=== PATIENT | male | born 1975 | race Hispanic/Latino ===

== ENCOUNTER 2020-11-05 17:43 | Emergency (ER) | payer SELFPAY ==
--- OUTSIDE RECORDS SUMMARY | 2020-11-05 17:45 | XMS REPORT | Continuity of Care Document ---
:1975 Author Organization [facility] t Address [address] [place] [address] Care Team Providers Name Role Phone David Ernst Attending Clinician Problems This patient has no known problems. Allergies, Adverse Reactions, Alerts This patient has no known allergies or adverse reactions. Medications This patient has no known medications. Procedures This patient has no known procedures. Encounters Start End Encounter Admission Attending Care Care Encounter Source Date/Time Date/Time Type Type Clinicians Facility Department ID 2020-03-31 2020-03-31 Emergency David Babcock [facility] [id number] 12:53:00 16:56:00 Jayda Medrano [id number] [place] [id number] [place] [id number] Results This patient has no known results.
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
[2020-11-05] MEDS ORDERED: IBUPROFEN 400 MG TAB ONE (20:27)
[2020-11-05] MEDS ORDERED: ACETAMINOPHEN 500 MG TAB ONE (20:27)
[2020-11-05] MEDS ORDERED: NA CHLORIDE 0.9% 1,000 ML ONE (20:51)
[2020-11-05 21:01] LABS: Absolute Lymphocytes (CBC) 3.3 K/uL (0.7-4.9); Basophils % 1.1 % (0-1.3); Hematocrit 43.1 % (39.6-49.0); Lymphocytes % 38.9 % (15.3-44.8); MPV 9.1 fL (7.6-11.3); RBC Red Blood Cell Count 5.03 M/uL (4.33-5.43)
[2020-11-05 21:13] LABS: ALT/SGPT 18 U/L (12-78); AST/SGOT 8 U/L (15-37); Albumin 3.7 g/dL (3.4-5.0); BUN Blood Urea Nitrogen 11 mg/dL (7-18); Bicarbonate 25 mmol/L (21-32); Bilirubin Direct 0.1 mg/dL (0-0.2); Bilirubin Total 0.5 mg/dL (0.2-1.0); Glucose Level 251 mg/dL (74-106); Lipase 161 U/L (73-393); Potassium 3.2 mmol/L (3.5-5.1); Protein, Total 7.4 g/dL (6.4-8.2); Sodium Level 137 mmol/L (136-145)
[2020-11-05 21:14] LABS: Alkaline Phosphatase ND U/L (45-117)
[2020-11-05] MEDS ORDERED: POTASSIUM 25 MEQ EFFERV TAB ONE (21:44)
[2020-11-05 21:47] VITALS: TEMP 98.4
[2020-11-05 21:48] VITALS: BP 126/93; O2SAT 98
[2020-11-05 21:55] LABS: Urine Mucus 2+ /HPF (NONE SEEN)
[2020-11-05 21:55] LABS: Urine Blood NEGATIVE (NEG); Urine Glucose 2+ (NEG); Urine Protein NEGATIVE (NEG); Urine Specific Gravity >1.030 (1.005-1.030)
[2020-11-05 21:56] LABS: Urine Bacteria <20 /HPF (NONE SEEN); Urine RBC <5 /HPF (NONE SEEN)
== END 2020-11-05 21:40 | disposition home or self-care (01) ==
LOC: ER 17:43
DX: H66.92 Otitis media, unspecified, left ear (principal); E11.65 Type 2 diabetes mellitus with hyperglycemia; F17.210 Nicotine dependence, cigarettes, uncomplicated; I10 Essential (primary) hypertension; E78.00 Pure hypercholesterolemia, unspecified
CPT/HCPCS: 36415; 80048; 80076; 81003; 81015; 82010; 82947; 83690; 85025; 99284; J7030

== ENCOUNTER 2022-07-01 12:47 | Emergency (ER) | payer OTHER ==
--- OUTSIDE RECORDS SUMMARY | 2022-07-01 12:52 | XMS REPORT | Continuity of Care Document ---
:1975 Author Organization [facility] t Address [address] [place] [address] Care Team Providers Name Role Phone PCP, PATIENT DOES NOT HAVE A Primary Care Physician Unavaila TE Aldrich Attending Clinician Unavailable Te Allen MD Attending Clinician David Ernst Attending Clinician David MOREAU Attending Clinician Unavailable Payers Payer Name Policy Type Policy Number Effective Date Expiration Date S [facility] [place] D [id number] 2010 2010 Traditional 00:00:00 00:00:00 Problems This patient has no known problems. Allergies, Adverse Reactions, Alerts Allergy Allergy Status Severity Reaction(s) Onset Inactive Treating Comm ents Source Name Type Date Date Clinician NO KNOWN Drug Active Univers ALLERGIE Class ity of S [facility] Social History Social Habit Start Date Stop Date Quantity Comments Source Exposure to Not sure [facility] SARS-CoV-2 (event) Medica l Branch Sex Assigned At [birth year] [facility] 00:00:00 00:00:00 [facility] Smoking Status Start Date Stop Date Source Unknown if ever smoked [facility] Medications Ordered Filled Start Stop Current Ordering Indication Dosage Frequency Signature Comments Components Source Medication Medication Date Date Medication? Clinician (SIG) Name Name ibuprofen 2020-08 Yes [id number] 600mg Take 1 U nivers 600 mg 2-12 tablet by ity of tablet 00:00: mouth [place] 00 every 8 Medical (eight) Branch hours as needed for Pain (scale 4-6). clindamycin 2020-08 No [id number] 300mg Take 1 Univers 300 mg 10-03 capsule by ity of capsule 00:00: 05:59 mouth 4 [place] 00 :00 (four) Medical times Branch daily for 10 days. NaCl 0.9% 2020- No 1000mL at 999 Uni vers (NS) bolus 8-10 08-10 mL/hr, ity of infusion 22:00: 21:53 1,000 mL, Varun as 1,000 mL 00 :00 IV Medical Infusion, Branch ONCE, 1 dose, 03/31/20 at 1700, STAT NaCl 0.9% 2020-0 2020- No 1000mL at 999 Uni vers (NS) bolus 8-10 08-10 mL/hr, ity of infusion 19:15: 21:07 1,000 mL, Varun as 1,000 mL 00 :00 IV Medical Infusion, Branch ONCE, 1 dose, 03/31/20 at 1415, STAT Vital Signs Vital Name Observation Time Observation Value Comments Source Systolic blood 2021-08-02 18:20:00 133 mm[Hg] Univer sity of [place] Diastolic blood 2021-08-02 18:20:00 78 mm[Hg] Unive rsity [facility] Heart rate 2021-08-02 18:20:00 97 /min [facility] Body temperature 2021-08-02 18:20:00 37.22 [facility]ina [facility] Respiratory rate 2021-08-02 18:20:00 18 /min [facility] Oxygen saturation in 2021-08-02 18:20:00 95 /min [facility] Arterial blood by [facility] Pulse oximetry [place] Body height 2021-08-02 17:48:00 170.2 cm [facility] Body weight 2021-08-02 17:48:00 108.41 kg [facility] BMI 2021-08-02 17:48:00 37.43 kg/m2 [facility] Systolic blood 2020-03-31 20:15:00 130 mm[Hg] Univer sity of [place] Diastolic blood 2020-03-31 20:15:00 78 mm[Hg] Unive rsity [facility] Heart rate 2020-03-31 20:15:00 93 /min Universi ty [facility] Respiratory rate 2020-03-31 20:15:00 18 /min [facility] ersity [facility] Oxygen saturation in 2020-03-31 20:15:00 96 /min University of Arterial blood by [facility] Pulse oximetry Branch Body temperature 2020-03-31 17:52:00 36.5 [facility]ina [facility] Body weight 2020-03-31 17:52:00 108.863 kg Universi [facility] Systolic blood 2020-03-31 20:15:00 130 mm[Hg] Univer sity of pressure [facility] Diastolic blood 2020-03-31 20:15:00 78 mm[Hg] Unive rsity of [place] Heart rate 2020-03-31 20:15:00 93 /min Universi [facility] Respiratory rate 2020-03-31 20:15:00 18 /min [facility] Oxygen saturation in 2020-03-31 20:15:00 96 /min University of Arterial blood by [facility] Pulse oximetry Branch Body temperature 2020-03-31 17:52:00 36.5 Irina [facility] ersity [facility] Body weight 2020-03-31 17:52:00 108.863 [facility] Procedures Procedure Date / Time Performed Performing Clinician Sour e POCT GLUCOSE 2021-08-02 17:59:00 Te Allen [facility] (AUTOMATED) [facility] CONSENT/REFUSAL FOR 2021-08-02 17:35:20 Doctor Unassigned, No Un [facility] DIAGNOSIS AND Name Medical Branch TREATMENT NOTICE OF PRIVACY 2021-08-02 17:35:03 Doctor Unassigned, No Univ [facility] PRACTICES Name Medical Branch URINALYSIS 2020-03-31 20:32:00 David Moreau [facility] MAGNESIUM 2020-03-31 18:40:00 David Moreau [facility] COMP. METABOLIC PANEL 2020-03-31 18:40:00 David Moreau [facility] ([id number]) [facility] CBC WITH DIFF 2020-03-31 18:40:00 David Moreau [facility] EKG-12 LEAD 2020-03-31 18:03:18 David Moreau [facility] Encounters Start End Encounter Admission Attending Care Care Encounter Source Date/Time Date/Time Type Type Clinicians Facility Department ID 2021-11-14 Outpatient [facility] [id number] [place] 06:52:36 [facility] 2021-08-02 2021-08-02 Emergency X BRADLEY [facility] ERT [id number] Univers 12:00:00 12:50:00 TE [facility] 2021-08-02 2021-08-02 Emergency Bradley [facility] [id number] Univers 12:00:00 12:50:00 Te SCALESLAURA [id number] i ty of [place] [id number] [facility] [id number] [address] 2020-03-31 2020-03-31 Emergency Prieto, K [facility] [id number] [facility] 12:53:00 16:56:00 Jayda Medrano [id number] i ty of [place] [id number] [facility] [id number] [address] 2020-03-31 2020-03-31 Emergency David Moreau [facility] [id number] 12:53:00 16:56:00 Jayda Medrano [id number] [place] [id number] [place] [id number] [facility] 2020-03-31 2020-03-31 Emergency X PRIETO, K [facility] ERT [id number] [facility] 12:53:00 12:53:00 [facility] Results Test Description Test Time Test Comments Results Result Comments Source POCT GLUCOSE (AUTOMATED) 2021-08-02 18:03:13 Test Item Value Reference Range Interpretation Comme nts POCT GLU (test code = 6842875055) 231 mg/dL 70-110 H Lab Interpretation (test code = 95477-2) [facility]:26[facility]00 Test Item Value Reference Range Interpretation Comments APPEARANCE (test code = Hazy Clear A 4838546323) COLOR (test code = Yellow Yellow 4099044955) PH (test code = 4.8-8.0 8049962796) SP GRAVITY (test code = 1.003-1.030 2707025766) GLU U QUAL (test code = 500 mg/dL Normal A 0538263484) BLOOD (test code = Negative Negative 9376836682) KETONES (test code = Negative Negative 6254308941) PROTEIN (test code = 30 mg/dL Negative A 2887-8) UROBILIN (test code = 2.0 mg/dL Normal A 0927580502) BILIRUBIN (test code = Negative Negative 8026556368) NITRITE (test code = Negative Negative 7737936934) LEUK VITO (test code = Negative Negative 7279015830) RBC/HPF (test code = See_Comment [Autom ated message] 6976397018) The system [employer]Le[employer] generated this result transmit sammie reference range : 0 - 3 HPF. The refe rence range was not u sed to interpret th is result as normal/abnormal . WBC/HPF (test code = See_Comment [Autom ated message] 2681056280) The system [employer] generated this result transmit sammie reference range : 0 - 5 HPF. The refe rence range was not u sed to interpret th is result as normal/abnormal . BACTERIA (test code = Few Negative A 4960055054) MUCOUS (test code = Marked Negative LPF A 2912105389) SQ EPITH (test code = <1 HPF 2402343250) HYAL CAST (test code = See_Comment H [Aut omated message] 7680665359) The system [employer] generated this result transmit sammie reference range : <=2 LPF. The refere nce range was not u sed to interpret th is result as normal/abnormal . Lab Interpretation (test Abnormal code = 68914-1) [facility] (55642)2020-03-31 19:31:00 Test Item Value Reference Range Interpretation Comments NA (test code = 136 mmol/L 135-145 7740466181) K (test code = 3.9 mmol/L 3.5-5 9531870828) CL (test code = 100 mmol/L 98-108 0844444264) CO2 TOTAL (test code = 23 mmol/L 23-31 6817366927) AGAP (test code = 2-16 8407683476) BUN (test code = 16 mg/dL 7-23 2716340749) GLUCOSE (test code = 297 mg/dL 70-110 H 3655605421) CREATININE (test code = 0.69 mg/dL 0.6-1.25 1270365052) TOTAL BILI (test code = 0.9 mg/dL 0.1-1.1 4001555405) CALCIUM (test code = 9.3 mg/dL 8.6-10.6 7735225229) T PROTEIN (test code = 8.3 g/dL 6.3-8.2 H 5602130586) ALBUMIN (test code = 4.8 g/dL 3.5-5 2975384235) ALK PHOS (test code = 83 U/L 34-122 1715500254) ALTv (test code = 20 U/L 5-50 2-6) AST(SGOT) (test code = 37 U/L 13-40 1827840211) eGFR Calculation mL/min/1.73m2 (Non-) (test code = 6563855592) eGFR Calculation mL/min/1.73m2 () (test code = 5001183958) DOREEN (test code = DOREEN) Slight hemolysis Association of Glomerular Filtration Rate (GFR) and Staging of Kidney Disease* + --+ --+ ------+| GFR (mL/min/1.73 m2) ?| With Kidney Damage ?| ?Without Kidney Damage+ --------+ --------+ +| ?>90 ?| ?Stage one ?| ? Normal ?+ ---+ ---+ -------+| ?60-89 ?| ?Stage two ?| ? Decreased GFR ? + --+ --+ ------+| ?30-59 ?| ?Stage three ?| ? Stage three ? + --+ --+ ------+| ?15-29 ?| ?Stage four ? | ? Stage four ?+ ---+ ---+ -------+| ?<15 (or dialysis) ? ?| ?Stage five ? | ? Stage five ?+ ---+ ---+ -------+ *Each stage assumes the associated GFR level has been in effect for at least three months. ?Stages 1 to 5, with or without kidney disease, indicate chronic kidney disease. Notes: Determination of stages one and two (with eGFR >59mL/min/1.73 m2) requires estimation of kidney damage for at least three months as defined by structural or functional abnormalities of the kidney, manifested by either:Pathological abnormalities or Markers of kidney damage (including abnormalities in the composition of the blood or urine or abnormalities in imaging tests). Lab Interpretation Abnormal (test code = 76874-2) [facility]25:00 Test Item Value Reference Range Interpretation Comments MAGNESIUM (test code = 7881967599) 1.9 mg/dL 1.7-2.4 Lab Interpretation (test code = Normal 90860-8) [facility] WITH [id number] 19:02:00 Test Item Value Reference Range Interpretation Comments WBC (test code = See_Comment [Automated message] 2290-2) The system [employer] generated this result transmitted ref erence range: 4.20 - 1 0.70 10*3/?L. The re ference range was not u sed to interpret this result as normal/abnor mal. RBC (test code = See_Comment [Automated message] 159-8) The system [employer] generated this result transmitted ref erence range: 4.26 - 5 .52 10*6/?L. The re ference range was not u sed to interpret this result as normal/abnor mal. HGB (test code = 15.3 g/dL 12.2-16.4 718-7) HCT (test code = 44.9 % 38.4-49.3 4544-3) MCV (test code = 86.5 fL 81.7-95.6 787-2) MCH (test code = 29.5 pg 26.1-32.7 785-6) MCHC (test code = 34.1 g/dL 31.2-35 786-4) RDW-SD (test code 39.1 fL 38.5-51.6 = 68639-5) RDW-CV (test code 12.4 % 12.1-15.4 = 788-0) PLT (test code = See_Comment [Automated message] 707-3) The system [employer] generated this result transmitted ref erence range: 150 - 32 8 10*3/?L. The re ference range was not u sed to interpret this result as normal/abnor mal. MPV (test code = 10.7 fL 9.8-13 59901-3) NRBC/100 WBC (test See_Comment [Automat ed message] code = 5385391087) The syste m which generated this result transmitted ref erence range: 0.0 - 10 .0 /100 WBCs. The refer ence range was not u sed to interpret this result as normal/abnor mal. NRBC x10^3 (test <0.01 See_Comment [Automated message] code = 7091836691) The syste m which generated this result transmitted ref erence range: 10*3/?L. The reference range was not used to interpr et this result as normal/abnormal . GRAN MAT (NEUT) % 60.8 % (test code = 770-8) IMM GRAN % (test 0.40 % code = 2415299993) LYMPH % (test code 29.6 % = 736-9) MONO % (test code 6.5 % = 5905-5) EOS % (test code = 2.3 % 713-8) BASO % (test code 0.4 % = 706-2) GRAN MAT 4.95 10*3/uL 1.99-6.95 x10^3(ANC) (test code = 4622735890) IMM GRAN x10^3 0.03 10*3/uL 0-0.06 (test code = 8065191652) LYMPH x10^3 (test 2.41 10*3/uL 1.09-3.23 code = 731-0) MONO x10^3 (test 0.53 10*3/uL 0.36-1.02 code = 742-7) EOS x10^3 (test 0.19 10*3/uL 0.06-0.53 code = 711-2) BASO x10^3 (test 0.03 10*3/uL 0.01-0.09 code = 704-7) [facility]"
[2022-07-01] MEDS ORDERED: NA CHLORIDE 0.9% 1,000 ML ONE (13:13)
[2022-07-01 13:26] LABS: Absolute Lymphocytes (CBC) 1.7 K/uL (0.7-4.9); Hematocrit 46.4 % (39.6-49.0); MCV 87.9 fL (80-100); MPV 8.7 fL (7.6-11.3); RBC Red Blood Cell Count 5.28 M/uL (4.33-5.43)
[2022-07-01 13:33] LABS: Protime INR 1.04
[2022-07-01 13:59] LABS: SARS-COV-2 RT PCR NEGATIVE (NEGATIVE)
--- NOTE | 2022-07-01 14:19 | RAD REPORT ---
EXAM DESCRIPTION: CT - Chest For Pe Angio - 07/01/2022 2:08 pm CLINICAL HISTORY: chest pain with breathing COMPARISON: No comparisons TECHNIQUE: Dynamically enhanced axial 3 mm thick images of the chest were obtained during administra tion of <100> mL Isovue 370 IV contrast. Coronal and oblique reconstruction images were generated and reviewed. Exam utilizes a protocol for optimal evaluation of pulmonary arterial tree. Maximum intensity projections 3D imaging was utilized All CT scans are performed using dose optimization technique as appropriate and may include automated exposure control or mA/KV adjustment according to patient size. FINDINGS: Chest Wall: No suspicious thyroid nodules or pathologic lymphadenopathy. Lungs: Small foci of nodular airspace disease in the right lower lobe. 16 mm solid nodule in the ling jeannine. Pleura: No significant effusions or pneumothorax. Mediastinum/ysabel: No pathologic lymphadenopathy. Pulmonary arteries/Aorta: No filling defect identified. No aortic aneurysm. Heart: No significant pericardial effusion. Normal heart size. Upper abdomen: Hepatic steatosis. Bones: No acute abnormality. IMPRESSION: Negative for pulmonary embolism. Mild nodularity in the right lower lobe likely reflecti ng mild pneumonia or pneumonitis. 16 mm solid nodule in the lingula favored to be related to infection or inflammation. Given the size, recommend three-month follow-up chest CT to exclude neoplasm and ensure resolution.
--- NOTE | 2022-07-01 14:21 | RAD REPORT ---
EXAM DESCRIPTION: CTAbdomen Pelvis W Contrast - 07/01/2022 2:08 pm CLINICAL HISTORY: abd pain COMPARISON: No comparisons TECHNIQUE: CT of the abdomen and pelvis was performed with IV contrast. All CT scans are performed using dose optimization technique as appropriate and may include automated exposure control or mA/KV adjustment according to patient size. FINDINGS: Lower chest: Reference same-day chest CT Liver: No acute abnormality or suspicious lesions. Biliary: No biliary ductal dilatation. Stomach: No significant focal abnormality. Duodenum: No significant focal abnormality. Pancreas: No significant abnormality. Spleen: No significant abnormality. Adrenal: No suspicious lesions. Kidney/ureter: No hydronephrosis. No renal calculi. Too small to characterize and/or benign appearing renal lesions are noted. Retroperitoneum: No retroperitoneal adenopathy. Vascular: No aneurysm. Bowel: No significant focal abnormality. Normal appendix. Peritoneum: No ascites or free air. Small fat containing inguinal hernias, left greater than right. Bladder: Grossly unremarkable. Reproductive: No adnexal masses. Bones: No acute fracture. Other: n/a IMPRESSION: No acute intra-abdominal or pelvic finding. Normal appendix.
--- NOTE | 2022-07-01 14:35 | RAD REPORT ---
EXAM DESCRIPTION: RAD - Chest Single View - 07/01/2022 2:30 pm CLINICAL HISTORY: CHEST PAIN COMPARISON: No comparisons FINDINGS: Lines: None. Lungs: No evidence of edema or pneumonia. Pleural: No significant pleural effusions or pneumothorax. Cardiac: The heart size is within normal limits. Mediastinum: Within normal limits. Bones: No acute fractures. Other: None IMPRESSION: No acute cardiopulmonary disease.
--- NOTE | 2022-07-01 14:47 | ER ---
Nurse's Notes [facility] Name: Jaden Luna Age: 46 yrs Sex: Male : 1975 Arrival Date: 07/01/2022 Time: 12:52 Bed 3 Private MD: Diagnosis: Pneumonia, unspecified organism;Chest pain on breathing Presentation: 07/01 13:00 Chief complaint: Patient states: Pt reports epigastric and upper abdominal pain and jh5 acid reflux radiating into his middle back with associated N/V, subjective fever and SOB x1 week. Coronavirus screen: Vaccine status: Patient reports receiving the 2nd dose of the covid vaccine. Client denies travel out of the [place] in the last 14 days. Ebola Screen: Patient negative for fever greater than or equal to 101.5 degrees Fahrenheit, and additional compatible Ebola Virus Disease symptoms Patient denies exposure to infectious person. Patient denies travel to an Ebola-affected area in the 21 days before illness onset. Initial Sepsis Screen: Does the patient meet any 2 criteria? HR > 90 bpm. No. Patient's initial sepsis screen is negative. Does the patient have a suspected source of infection? No. Patient's initial sepsis screen is negative. Risk Assessment: Do you want to hurt yourself or someone else? Patient reports no desire to harm self or others. Onset of symptoms was June 24, 2022. 13:00 Method Of Arrival: Ambulatory [facility] 13:00 Acuity: JAMES 3 jh5 Triage Assessment: 13:02 General: Appears in no apparent distress. uncomfortable, Behavior is calm, cooperative. 5 Pain: Complains of pain in epigastric area, right upper quadrant and left upper quadrant Pain radiates to left mid back and right mid back Pain currently is 8 out of 10 on a pain scale. Quality of pain is described as sharp, Pain began 1 week ago Is continuous. Historical: - Allergies: 13:02 No Known Allergies; [facility] - Home Meds: 13: metformin 1,000 mg Oral tab 1 tab 2 times per day [Active]; 5 - PMHx: 13:02 Diabetes - NIDDM; High Cholesterol; Hypertension; [facility] - PSHx: 13:02 None; [facility] - Immunization history:: Adult Immunizations up to date, Client reports receiving the 2nd dose of the Covid vaccine, Last tetanus immunization: up to date. - Social history:: Smoking status: Reported history of juuling and/or vaping. - Family history:: not pertinent. - Hospitalizations: : No recent hospitalization is reported. Screenin:07 Abuse screen: Denies threats or abuse. Denies injuries from another. Nutritional db screening: No deficits noted. Tuberculosis screening: No symptoms or risk factors identified. Fall Risk None identified. No fall in past 12 months (0 pts). No secondary diagnosis (0 pts). IV access (20 points). Ambulatory Aid- None/Bed Rest/Nurse Assist (0 pts). Gait- Normal/Bed Rest/Wheelchair (0 pts) Mental Status- Oriented to own ability (0 pts). Total Wu Fall Scale indicates No Risk (0-24 pts). Assessment: 13:04 Reassessment: Patient appears in no apparent distress at this time. Patient and/or db family updated on plan of care and expected duration. Pain level reassessed. Patient is alert, oriented x 3, equal unlabored respirations, skin warm/dry/pink. under rib and middle epigastric pain started x 1 week ago. General: Appears Behavior is calm, cooperative, appropriate for age. Pain: Complains of pain in chest Pain began 1 week ago. Pain: Pain radiates to back. Neuro: No deficits noted. Level of Consciousness is awake, alert, obeys commands, Oriented to person, place, time, situation, Appropriate for age Speech is normal, Facial symmetry appears normal. Cardiovascular: Reports chest pain, shortness of breath. Respiratory: No deficits noted. GI: Reports upper abdominal pain. : No deficits noted. No signs and/or symptoms were reported regarding the genitourinary system. EENT: No deficits noted. No signs and/or symptoms were reported regarding the EENT system. Derm: No deficits noted. No signs and/or symptoms reported regarding the dermatologic system. Musculoskeletal: No deficits noted. No signs and/or symptoms reported regarding the musculoskeletal system. 14:00 Reassessment: Patient appears in no apparent distress at this time. Patient and/or kb3 family updated on plan of care and expected duration. Pain level reassessed. Patient is alert, oriented x 3, equal unlabored respirations, skin warm/dry/pink. 15:16 Reassessment: Patient appears in no apparent distress at this time. Patient and/or kb3 family updated on plan of care and expected duration. Pain level reassessed. Patient is alert, oriented x 3, equal unlabored respirations, skin warm/dry/pink. Vital Signs: 12:53 BP 139 / 94; Pulse 101; Resp 22; Pulse Ox 93% on R/A; db 13:00 BP 139 / 94; Pulse 106; Resp 20; Pulse Ox 94% ; Weight 117.03 kg; Height 5 ft. 7 in. [facility] (170.18 cm); Pain 8/10; 13:30 BP 139 / 90; Pulse 93; Resp 18; Pulse Ox 95% ; kb3 14:43 BP 129 / 82; Pulse 85; Resp 18; Pulse Ox 97% ; kb3 13:00 Body Mass Index 40.41 (117.03 kg, 170.18 cm) [facility] Vitals: 12:53 Cardiac Rhythm Assessment Regular Sinus rhythm. db ED Course: 12:52 Patient arrived in ED. rg4 13:00 Bethel Leslie MD is Attending Physician. rn 13:02 Triage completed. [facility] 13:02 Arm band placed on right wrist. Patient placed in an exam room, on a stretcher. [facility] 13:04 Latisha Rodriguez, RN is Primary Nurse. db 13:07 Patient has correct armband on for positive identification. Bed in low position. Call db light in reach. Side rails up X 1. Client placed on continuous cardiac and pulse oximetry monitoring. NIBP monitoring applied. Warm blanket given. 13:07 Patient maintains SpO2 saturation greater than 95% on room air. db 14:09 CT Chest For PE Angio In Process Unspecified. EDMS 14:09 CT Abd/Pelvis - IV Contrast Only In Process Unspecified. EDMS 14:32 XRAY Chest (1 view) In Process Unspecified. EDMS 15:12 No provider procedures requiring assistance completed. IV discontinued, intact, bp bleeding controlled, No redness/swelling at site. Pressure dressing applied. Administered Medications: 13:20 Drug: NS 0.9% 1000 ml Route: IV; Rate: 1000 ml; Site: right antecubital; db 15:11 Follow up: Response: No adverse reaction; IV Status: Completed infusion; IV Intake: kb3 1000ml 15:11 Drug: LevOfloxacin 500 mg Route: PO; bp 15:12 Follow up: Response: No adverse reaction kb3 15:12 Follow up: Response: No adverse reaction bp Medication: 13:07 VIS not applicable for this client. db Intake: 15:11 IV: 1000ml; Total: 1000ml. kb3 Outcome: 14:47 Discharge ordered by . rn 15:13 Discharged to home ambulatory. kb3 15:13 Condition: stable 15:13 Discharge instructions given to patient, Instructed on discharge instructions, Demonstrated understanding of follow-up care, Prescriptions given X 1. 15:17 Patient left the ED. kb3 Signatures: Dispatcher [employer] EDMS Bethel Leslie MD MD rn Garcia, Rubi rg4 Bakari Garcia RN RN Sarina Lane RN RN jh5 Robina Driver RN RN kb3 Latisha Rodriguez RN RN db
--- NOTE | 2022-07-01 14:48 | EDPHYS ---
Physician Documentation [facility] Name: Jaden Luna Age: 46 yrs Sex: Male : 1975 Arrival Date: 07/01/2022 Time: 12:52 Bed 3 Private MD: ED Physician Bethel Leslie HPI: 07/01 14:42 This 46 yrs old Male presents to ER via Ambulatory with complaints of Chest rn Pain, Breathing Difficulty. 14:42 The patient or guardian reports chest pain that is located primarily in the anterior rn chest wall, bilaterally. Onset: 1 week(s) ago. The pain does not radiate. Associated signs and symptoms: Pertinent positives: abdominal pain, cough, shortness of breath, Pertinent negatives: diaphoresis, syncope. The chest pain is described as sharp. Duration: The patient or guardian reports multiple episodes, that are intermittent. Modifying factors: The symptoms are alleviated by nothing. the symptoms are aggravated by cough, deep breath. Severity of pain: At its worst the pain was mild in the emergency department the pain is unchanged. The patient has experienced similar episodes in the past. The patient has not recently seen a physician. Historical: - Allergies: 13:02 No Known Allergies; [facility] - Home Meds: 13:02 metformin 1,000 mg Oral tab 1 tab 2 times per day [Active]; [facility] PMHx: 13:02 Diabetes - NIDDM; High Cholesterol; Hypertension; [facility] - PSHx: 13:02 None; [facility] - Immunization history:: Adult Immunizations up to date, Client reports receiving the 2nd dose of the Covid vaccine, Last tetanus immunization: up to date. - Social history:: Smoking status: Reported history of juuling and/or vaping. - Family history:: not pertinent. - Hospitalizations: : No recent hospitalization is reported. ROS: 14:42 Constitutional: Negative for fever, chills, and weight loss, Eyes: Negative for injury, rn pain, redness, and discharge, Neck: Negative for injury, pain, and swelling, Cardiovascular: Negative for palpitations, and edema, Respiratory: Negative for wheezing Abdomen/GI: Negative for nausea, vomiting, diarrhea, and constipation Back: Negative for injury and pain, : Negative for injury, bleeding, discharge, and swelling, MS/Extremity: Negative for injury and deformity, Skin: Negative for injury, rash, and discoloration, Neuro: Negative for numbness, tingling, and seizure Exam: 14:42 Constitutional: This is a well developed, well nourished patient who is awake, alert, rn and in no acute distress. Head/Face: Normocephalic, atraumatic. Chest/axilla: Normal chest wall appearance and motion. Nontender with no deformity. No lesions are appreciated. Cardiovascular: Regular rate and rhythm. No pulse deficits. Respiratory: No increased work of breathing, no retractions or nasal flaring. Abdomen/GI: soft, mild epigastric tenderness, no rebound Skin: Warm, dry MS/ Extremity: Pulses equal, no cyanosis. Neuro: Awake and alert, GCS 15 14:42 ECG was reviewed by the Attending Physician. rn Vital Signs: 12:53 BP 139 / 94; Pulse 101; Resp 22; Pulse Ox 93% on R/A; db 13:00 BP 139 / 94; Pulse 106; Resp 20; Pulse Ox 94% ; Weight 117.03 kg; Height 5 ft. 7 in. jh5 (170.18 cm); Pain 8/10; 13:30 BP 139 / 90; Pulse 93; Resp 18; Pulse Ox 95% ; kb3 14:43 BP 129 / 82; Pulse 85; Resp 18; Pulse Ox 97% ; kb3 13:00 Body Mass Index 40.41 (117.03 kg, 170.18 cm) jh5 MDM: 13:00 Patient medically screened. rn 14:42 Differential diagnosis: acute myocardial infarction, acute pericarditis, coronary rn artery disease chest wall pain, costochondritis, gastroesophageal reflux disease (GERD), pleurisy, pneumonia, pneumothorax, pulmonary embolus. Data reviewed: vital signs, nurses notes, lab test result(s), EKG, radiologic studies, CT scan, plain films, and as a result, I will discharge patient. Counseling: I had a detailed discussion with the patient and/or guardian regarding: the historical points, exam findings, and any diagnostic results supporting the discharge/admit diagnosis, lab results, radiology results, the need for outpatient follow up, to return to the emergency department if symptoms worsen or persist or if there are any questions or concerns that arise at home. Special discussion: I discussed with the patient/guardian in detail that at this point there is no indication for admission to the hospital. It is understood, however, that if the symptoms persist or worsen the patient needs to return immediately for re-evaluation. 07/01 13:07 Order name: Basic Metabolic Panel; Complete Time: 15:05 rn 07/01 13:07 Order name: CBC with Diff; Complete Time: 14:41 rn 07/01 13:07 Order name: LFT's; Complete Time: 15:05 rn 07/01 13:07 Order name: NT PRO-BNP; Complete Time: 15: rn 07/01 13:07 Order name: PT-INR; Complete Time: 14:41 rn 07/01 13:07 Order name: Troponin HS; Complete Time: 15:05 rn 07/01 13:07 Order name: XRAY Chest (1 view); Complete Time: 14:41 rn 07/01 13:07 Order name: EKG; Complete Time: 13: rn 07/01 13:07 Order name: CT Chest For PE Angio; Complete Time: 14:41 rn 07/01 13:07 Order name: CT Abd/Pelvis - IV Contrast Only; Complete Time: 14: rn 07/01 13:09 Order name: Lipase; Complete Time: 15: rn 07/01 13:09 Order name: COVID-19/FLU A+B/RSV (Document "Date of Onset" if Symptomatic); Complete rn Time: 14:07/01 13:07 Order name: Cardiac monitoring; Complete Time: 13: rn 07/01 13:07 Order name: EKG - Nurse/Tech; Complete Time: 13:15 rn 07/01 13:07 Order name: IV Saline Lock; Complete Time: 13: rn 07/01 13:07 Order name: Labs collected and sent; Complete Time: 13:15 rn 07/01 13:07 Order name: O2 Per Protocol; Complete Time: 13: rn 07/01 13:07 Order name: O2 Sat Monitoring; Complete Time: 13:11 rn EC:42 Rate is 98 beats/min. Rhythm is regular. QRS [place] is Normal. MI interval is normal. QRS rn interval is normal. QT interval is normal. No Q waves. T waves are Normal. No ST changes noted. Clinical impression: Normal ECG. Interpreted by me. Reviewed by me. Administered Medications: 13:20 Drug: NS 0.9% 1000 ml Route: IV; Rate: 1000 ml; Site: right antecubital; db 15:11 Follow up: Response: No adverse reaction; IV Status: Completed infusion; IV Intake: kb3 1000ml 15:11 Drug: LevOfloxacin 500 mg Route: PO; bp 15:12 Follow up: Response: No adverse reaction kb3 15:12 Follow up: Response: No adverse reaction bp Disposition Summary: 07/01/22 14:47 Discharge Ordered Location: Home rn Problem: new rn Symptoms: have improved rn Condition: Stable rn Diagnosis - Pneumonia, unspecified organism rn - Chest pain on breathing rn Followup: rn - With: Private Physician - When: As needed - Reason: Recheck today's complaints, Re-evaluation by your physician Discharge Instructions: - Discharge Summary Sheet rn - Nonspecific Chest Pain, Adult rn - Chest Wall Pain rn - Community-Acquired Pneumonia, Adult rn Forms: - Medication Reconciliation Form rn - Thank You Letter rn - 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
[2022-07-01 15:02] LABS: ALT/SGPT 26 U/L (12-78); AST/SGOT 8 U/L (15-37); Alkaline Phosphatase 134 U/L (45-117); BUN Blood Urea Nitrogen 11 mg/dL (7-18); Bicarbonate 24 mmol/L (21-32); Bilirubin Total 0.2 mg/dL (0.2-1.0); Glomerular Filtration Rate 108 ml/min (=/>90); Lipase 176 U/L (73-393); NT PRO-BNP 7 pg/mL (<125); Protein, Total 6.7 g/dL (6.4-8.2); Sodium Level 134 mmol/L (136-145); Troponin High Sensitivity 5.3 pg/mL (<58.9)
[2022-07-01 15:03] LABS: Bilirubin Direct < 0.1 mg/dL (0-0.2)
[2022-07-01 15:04] LABS: Glucose Level 403 mg/dL (74-106)
[2022-07-01] MEDS ORDERED: levoFLOXacin 250 MG TAB ONE (15:05)
[2022-07-01 15:37] VITALS: BP 129/82; O2SAT 97
--- NOTE | 2022-07-02 15:59 | EKG ---
Test Date: 2022-07-01 Test Time: 13:10:00 Tier And Detonator: JACE MEASUREMENT RESULTS: Intervals: Rate: 98 TX: 146 QRSD: 112 QT: 354 QTc: 451 [place]: P: 58 TX: 146 QRS: 27 T: 62 INTERPRETIVE STATEMENTS: Normal sinus rhythm Normal ECG No previous ECG available for comparison Electronically Signed On 07-02-22 15:57:52 GRAINING OPERATOR by Abdirizak Gamez
== END 2022-07-01 15:17 | disposition home or self-care (01) ==
LOC: ER 12:47
DX: J18.9 Pneumonia, unspecified organism (principal); E11.9 Type 2 diabetes mellitus without complications; I10 Essential (primary) hypertension; Z20.822 Contact with and (suspected) exposure to COVID-19
CPT/HCPCS: 96361; 93005; 85025; 80048; 36415; 85610; 82565; 80076; 84484; 83690; 83880; 0241U; 71275; 74177; 71045; 96360; 99284; Q9967; J7030

== ENCOUNTER → 2023-10-17 | Emergency (ER) | payer OTHER, SELFPAY ==
[~2023-10-17] MED LIST: ASPIRIN 81 MG CHEWABLE TABLET ONE
--- OUTSIDE RECORDS SUMMARY | 2023-10-17 20:38 | XMS REPORT | Continuity of Care Document ---
Author Name Unknown Address [address] [facility] [address] [place] [address] [facility] Address [address] [facility] 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 Role Phone Ellerslie Anderson BOLDEN Primary Care Physician [phone] ZULMA BEJARANO Attending Clinician Unavailable Parish Deleon Attending Clinician [phone] Oneyda Fletcher Attending Clinician [phone] FRANCHESKA ALLEN Attending Clinician Unavailable Francheska Allen MD Attending Clinician [phone] David Ernst Attending Clinician [phone] David MOREAU Attending Clinician Unavailable Payers Payer Name Policy Type Policy Number Effective Date Expirati on Date Source GENERIC MANAGED CARE [id number] 2022 00:00:00 Problems Condition Name Condition Details Condition Category Status Onset Date Resolution Date Last Treatment Date Treating Clinician Comments Source Closed displaced transverse fracture of shaft of right femur Closed displaced transverse fracture of shaft of right femur Disease Active 10-04 00:00: 00 [facility] Closed displaced intertroch anteric fracture of right femur Closed displaced intertroch anteric fracture of right femur Disease Active - 00:00: 00 [facility] Allergies, Adverse Reactions, Alerts Allergy Name Allergy Type Status Severity Reaction(s) Onset Date Inactive Date Treating Clinician Comments Source NO KNOWN ALLERGIE S Drug Class Active [facility] Social History Social Habit Start Date Stop Date Quantity Comments Source Sexual orientation [facility] Exposure to SARS-CoV-2 (event) 2023-01-08 00:00:00 2023-01-18 10:46:00 Not sure [facility] Sex Assigned At 1975 00:00:00 1975 00:00:00 [facility] Smoking Status Start Date Stop Date Source Tobacco smoking consumption unknown [facility] Medications Ordered Medication Name Filled Medication Name Start Date Stop Date Current Medication? Ordering Clinician Indication Dosage Frequency Signature (SIG) Comments Components Source ergocalcife rol (Drisdol) 1.25 MG (44790 UT) capsule 2022-08 00:00: 00 08-28 05:59 :00 No [id number] Take 1 capsule (50,000 Units total) by mouth 1 (one) time per week. [facility] ergocalcife rol (Drisdol) 1.25 MG (89072 UT) capsule 03-22 00:00: 00 05-22 04:59 :00 No [id number] Take 1 capsule (50,000 Units total) by mouth 1 (one) time per week. [facility] TAKE 1 TABLET BY MOUTH EVERY 8 HOURS NEEDED FOR PAIN (SCALE 4-6) 2021-08 00:00: 00 No ibuprofen 600 mg tablet 2020-08 00:00: 00 Yes [id number] 600mg Take 1 tablet by mouth every 8 (eight) hours as needed for Pain (scale 4-6). [facility] clindamycin 300 mg capsule 2020-08 00:00: 00 08-13 05:59 :00 No [id number] 300mg Take 1 capsule by mouth 4 (four) times daily for 10 days. [facility] NaCl 0.9% (NS) bolus infusion 1,000 mL 03-31 22:00: 00 03-31 21:53 :00 No 1000mL at 999 mL/hr, 1,000 mL, IV Infusion, ONCE, 1 dose, Tue03/31/20 at 1700, STAT [facility] NaCl 0.9% (NS) bolus infusion 1,000 mL 03-31 19:15: 00 03-31 21:07 :00 No 1000mL at 999 mL/hr, 1,000 mL, IV Infusion, ONCE, 1 dose, 03/31/20 at 1415, STAT [facility] Immunizations Ordered Immunization Name Filled Immunization Name Date Status Comments Source COVID-19 Moderna 12 & Over Vaccination (SQUEEGEER AND FORMER) 2021-08-21 00:00:00 Completed [facility] COVID-19 Moderna Primary 12+yr (red) 2021-08-21 00:00:00 Completed [facility] COVID-19 Moderna Primary 12+yr (red) 2021-08-21 00:00:00 Completed [facility] COVID-19 Moderna Primary 12+yr (red) Unknown Completed [facility] Vital Signs Vital Name Observation Time Observation Value Comments S ource Systolic blood pressure 2021-08-02 18:20:00 133 mm[Hg] [facility] Diastolic blood pressure 2021-08-02 18:20:00 78 mm[Hg] [facility] Heart rate 2021-08-02 18:20:00 97 /min [facility] Body temperature 2021-08-02 18:20:00 37.22 [facility] Respiratory rate 2021-08-02 18:20:00 18 /min [facility] Oxygen saturation in Arterial blood by Pulse oximetry 2021-08-02 18:20:00 95 /min [facility] Body height 2021-08-02 17:48:00 170.2 cm [facility] Body weight 2021-08-02 17:48:00 108.41 kg [facility] BMI 2021-08-02 17:48:00 37.43 kg/m2 [facility] Systolic blood pressure 2020-03-31 20:15:00 130 mm[Hg] [facility] Diastolic blood pressure 2020-03-31 20:15:00 78 mm[Hg] [facility] Heart rate 2020-03-31 20:15:00 93 /min [facility] Respiratory rate 2020-03-31 20:15:00 18 /min [facility] Oxygen saturation in Arterial blood by Pulse oximetry 2020-03-31 20:15:00 96 /min [facility] Body temperature 2020-03-31 17:52:00 36.5 [facility] Body weight 2020-03-31 17:52:00 108.863 kg [facility] Systolic blood pressure 2020-03-31 20:15:00 130 mm[Hg] [facility] Diastolic blood pressure 2020-03-31 20:15:00 78 mm[Hg] [facility] Heart rate 2020-03-31 20:15:00 93 /min [facility] Respiratory rate 2020-03-31 20:15:00 18 /min [facility] Oxygen saturation in Arterial blood by Pulse oximetry 2020-03-31 20:15:00 96 /min [facility] Body temperature 2020-03-31 17:52:00 36.5 [facility] Body weight 2020-03-31 17:52:00 108.863 kg [facility] Respiratory Rate 2022-07-07 17:31:00 17.00 /min BP Systolic 2022-07-07 17:31:00 120 mm[Hg] BP Diastolic 2022-07-07 17:31:00 78 mm[Hg] Weight Measured 2022-07-07 17:31:00 253.20 pounds Height Measured 2022-07-07 17:31:00 65.00 inches Body Temperature 2022-07-07 17:31:00 98.10 degrees Heart Rate 2022-07-07 17:31:00 113.00 /min Procedures Procedure Date / Time Performed Performing Clinicia n Source POCT GLUCOSE (AUTOMATED) 2021-08-02 17:59:00 Francheska Allen [facility] CONSENT/REFUSAL FOR DIAGNOSIS AND TREATMENT 2021-08-02 17:35:20 Doctor Unassigned, [place] [facility] NOTICE OF PRIVACY PRACTICES 2021-08-02 17:35:03 Doctor Unassigned, [place] [facility] URINALYSIS 2020-03-31 20:32:00 David Moreau [facility] MAGNESIUM 2020-03-31 18:40:00 David Moreau [facility] COMP. METABOLIC PANEL ([id number]) 2020-03-31 18:40:00 David Moreau [facility] CBC WITH DIFF 2020-03-31 18:40:00 [facility] 2020-03-31 18:03:18 David Moreau [facility] Plan of Care Planned Activity Planned Date Details Comments Source Goal Plan of Care Note [code = 24547-2] Goal Plan of Care Note [code = 41352-2] Goal Plan of Care Note [code = 75582-8] Goal Plan of Care Note [code = 33122-5] Goal Plan of Care Note [code = 37765-2] Goal Plan of Care Note [code = 45242-3] Goal Plan of Care Note [code = 75528-9] Encounters Start Date/Time End Date/Time Encounter Type Admission Type Attending Clinicians [facility] Facility Care Department Encounter ID Source 2023-02-17 07:28:39 Outpatient [facility] [id number] [facility] 2023-01-13 08:06:26 Outpatient [facility] [id number] [facility] 2023-01-07 07:37:41 Outpatient [facility] [id number] [facility] 2023-01-06 16:25:21 Outpatient [facility] [id number] [facility] 2022-12-20 14:37:36 Outpatient [facility] [id number] [facility] 2022-12-07 07:46:15 Outpatient [facility] [id number] [facility] 2022-10-08 14:34:18 Outpatient [facility] [id number] [facility] 2022-10-05 11:18:12 Outpatient [facility] [id number] [facility] 2022-09-27 11:20:52 Outpatient [facility] [id number] [facility] 2023-09-13 12:45:00 2023-09-13 12:45:00 Outpatient [facility] [id number] [facility] 2023-09-06 09:45:00 2023-09-06 09:45:00 Outpatient ZULMA BEJARANO [facility] [id number] [facility] 2023-09-06 09:45:00 2023-09-06 09:45:00 Outpatient [facility] [id number] [facility] 2023-08-11 15:14:32 2023-08-11 15:14:32 Outpatient [facility] [id number] Hebert Portillo [place] 2023-08-03 17:08:10 2023-08-03 17:08:10 Outpatient [facility] [id number] Hebert Portillo [place] 2023-06-28 10:00:00 2023-06-28 10:34:40 Office Visit Parish Babin [facility] [address] [id number] [facility] 2023-06-28 10:00:00 2023-06-28 10:34:40 Outpatient [facility] [id number] [facility] 2023-03-22 11:30:00 2023-03-22 11:30:00 Outpatient [facility] [id number] [facility] 2023-03-22 11:30:00 2023-03-22 11:30:00 Office Visit Parish Babin [facility] [address] [id number] [facility] 2023-01-18 11:30:00 2023-01-18 11:30:00 Office Visit Zulma Bejarano [facility] [address] [id number] [facility] 2023-01-18 11:30:00 2023-01-18 11:22:40 Outpatient [facility] [id number] [facility] 2022-12-07 11:30:00 2022-12-07 11:43:11 Outpatient [facility] [id number] [facility] 2022-12-07 11:30:00 2022-12-07 11:43:11 Office Visit Oneyda Quarles [facility] [address] [id number] 350.1.13.58 [id number] [id number] [facility] 2022-11-02 11:45:00 2022-11-02 11:45:00 Outpatient ONEYDA QUARLES [facility] [id number] [facility] 2022-10-05 11:45:00 2022-10-05 12:32:47 Office Visit Zulma Bejarano [facility] [address] [facility] [id number] [id number] [facility] 2022-10-05 11:45:00 2022-10-05 12:32:47 Outpatient [facility] [id number] [facility] 2022-09-20 14:00:00 2022-09-20 14:00:00 Outpatient ZULMA BEJARANO [facility] [id number] [facility] 2022-07-13 10:33:28 2022-07-13 10:33:28 Outpatient [facility] SFA [id number] Hebert Carrillo 2022-07-07 17:26:51 2022-07-07 17:26:51 Outpatient [facility] SFA [id number] Hebert Carrillo 2022-07-07 00:00:00 2022-07-07 00:00:00 Outpatient Visit [id number] 2021-08-02 12:00:00 2021-08-02 12:50:00 Emergency X FRANCHESKA ALLEN [facility] ERT [id number] [facility] 2021-08-02 12:00:00 2021-08-02 12:50:00 Emergency Francheska Allen [facility] 1..840.114 350.1.13.10 [id number] [id number] [facility] 2020-03-31 12:53:00 2020-03-31 16:56:00 Emergency [facility] 1.2.840.114 350.1.13.10 [id number] [id number] 2020-03-31 12:53:00 2020-03-31 16:56:00 Emergency [facility] 1.2.840.114 350.1.13.10 [id number] [id number] [facility] 2020-03-31 12:53:00 2020-03-31 12:53:00 Emergency X David MOREAU [facility] ERT [id number] [facility] Results Test Description Test Time Test Comments Results Result Co mments Source LIPID [id number] 05:45:55* Test Item Value Reference Range Interpretation Comme nts CHOLESTEROL (test code = 2210) 270 MG/DL <200 H TRIGLYCERIDES (test code = 2232) 371 MG/DL <150 H HDL CHOLESTEROL (test code = 2220) 54 MG/DL >39 CALC LDL CHOL (test code = 2237) 159 MG/DL <100 H NOTE: CALCULATED LDL IS BASED ON HAZEL-MARI METHOD WHICHINCLUDES ADJUSTABLE TRIGLYCERIDE:VLDL CHOLESTEROL RATIO.THIS FACTOR VARIES BY MEASURED TRIGLYCERIDE AND NON-HDLCHOLESTEROL CONCENTRATIONS WITH INCREASED CALCULATED LDL SEENIN HIGHER TRIGLYCERIDE OR LOWER NON-HDL SPECIMENS. FOR MOREINFORMATION, SEE CLIENT ANNOUNCEMENT AT [email or web address] RISK RATIO LDL/HDL (test code = 2238) 2.94 RATIO <3.55 UNLESS OTHERW ISE INDICATED, ALL TESTING PERFORMED AT [facility] [address] [place] [address] 129[address] SOLAR PANEL TECHNICIAN: RIKI MAYA M.D. CLIA NUMBER [id number] [facility]. [id number] HEMOGLOBIN [id number] 03:54:48* Test Item Value Reference Range Interpretation Comme nts HEMOGLOBIN A1c (test code = 60647) 11.2 % 4.2-5.6 H [employer] GUIDELINES FOR HGB A1C: PREDIABETES/INCREASED RISK . . . . . . . 5.7-6.4% DIAGNOSIS OF DIABETES . . . . . . . . . >=6.5% WITH CONFIRMATION OR APPROPRIATE SYMPTOMS NOTE: ASSAY MAY BE AFFECTED BY HEMOGLOBINOPATHIES (SICKLE CELL ANEMIA, S-C DISEASE, OTHERS) OR ARTIFICIALLY LOWERED BY DECREASED RED CELL SURVIVAL (HEMOLYTIC ANEMIAS, BLOOD LOSS, ETC.). CONSIDER ALTERNATE TESTING OR LABORATORY CONSULTATION. POCT GLUCOSE (AUTOMATED)2021-08-02 18:03:13* Test Item Value Reference Range Interpretation Comme nts POCT GLU (test code = 6768552562) 231 mg/dL 70-110 H Lab Interpretation (test cod e = 48299-2) [facility]* Test Item Value Reference Range Interpretation Comme nts APPEARANCE (test code = 1544567368) Hazy Clear A COLOR (test code = 5442363657) Yellow Yellow PH (test code = 6923945765) 4.8-8.0 SP GRAVITY (test code = 7338983069) 1.003-1.030 GLU U QUAL (test code = 0285601297) 500 mg/dL Normal A BLOOD (test code = 0553512497) Negative Negative KETONES (test code = 2267963795) Negative Negative PROTEIN (test code = 2887-8) 30 mg/dL Negative A UROBILIN (test code = 2805399600) 2.0 mg/dL Normal A BILIRUBIN (test code = 3955034142) Negative Negative NITRITE (test code = 1993128677) Negative Negative LEUK VITO (test code = 4625022340) Negative Negative RBC/HPF (test code = 3192398705) See_Comment [Automated [employer]] The system which generated this result transmitted reference range: 0 - 3 HPF. The reference range was not used to interpret this result as normal/abnormal. WBC/HPF (test code = 0272770719) See_Comment [Automated [employer]] The system which generated this result transmitted reference range: 0 - 5 HPF. The reference range was not used to interpret this result as normal/abnormal. BACTERIA (test code = 0546298058) Few Negative A MUCOUS (test code = 4562201848) Marked Negative LPF A SQ EPITH (test code = 5083677824) <1 HPF HYAL CAST (test code = 8549253296) See_Comment H [Automated messa ge] The system which generated this result transmitted reference range: <=2 LPF. The reference range was not used to interpret this result as normal/abnormal. Lab Interpretation (test code = 88320-5) Abnormal [facility]. METABOLIC PANEL (77191)2020-03-31 19:31:00* Test Item Value Reference Range Interpretation Comme nts NA (test code = 3221236958) 136 mmol/L 135-145 K (test code = 9932762824) 3.9 mmol/L 3.5-5 CL (test code = 2703009800) 100 mmol/L 98-108 CO2 TOTAL (test code = 1088738701) 23 mmol/L 23-31 AGAP (test code = 0551526745) 2-16 BUN (test code = 2868511926) 16 mg/dL 7-23 GLUCOSE (test code = 2991203081) 297 mg/dL 70-110 H CREATININE (test code = 4331175921) 0.69 mg/dL 0.6-1.25 TOTAL BILI (test code = 8296465595) 0.9 mg/dL 0.1-1.1 CALCIUM (test code = 9975870558) 9.3 mg/dL 8.6-10.6 T PROTEIN (test code = 8361275083) 8.3 g/dL 6.3-8.2 H ALBUMIN (test code = 1943061239) 4.8 g/dL 3.5-5 ALK PHOS (test code = 3007335183) 83 U/L 34-122 ALTv (test code = 1742-6) 20 U/L 5-50 AST(SGOT) (test code = 2172358008) 37 U/L 13-40 eGFR Calculation (Non-) (test code = 9936504152) mL/min/1.73m2 eGFR Calculation () (test code = 1103485227) mL/min/1.73m2 DOREEN (test code = DOREEN) Slight hemolysis [...] or abnormalities in imaging tests). Lab Interpretation (test code = 03792-0) [facility]25:00* Test Item Value Reference Range Interpretation Comme nts MAGNESIUM (test code = 4592040520) 1.9 mg/dL 1.7-2.4 Lab Interpretation (test cod e = 59440-4) Normal [facility] WITH [id number] 19:02:00* Test Item Value Reference Range Interpretation Comme nts WBC (test code = 6690-2) See_Comment [Automated [employer]] The system which generated this result transmitted reference range: 4.20 - 10.70 10*3/?L. The reference range was not used to interpret this result as normal/abnormal. RBC (test code = 789-8) See_Comment [Automated [employer]] The system which generated this result transmitted reference range: 4.26 - 5.52 10*6/?L. The reference range was not used to interpret this result as normal/abnormal. HGB (test code = 718-7) 15.3 g/dL 12.2-16.4 HCT (test code = 4544-3) 44.9 % 38.4-49.3 MCV (test code = 787-2) 86.5 fL 81.7-95.6 MCH (test code = 785-6) 29.5 pg 26.1-32.7 MCHC (test code = 786-4) 34.1 g/dL 31.2-35 RDW-SD (test code = 42370-9) 39.1 fL 38.5-51.6 RDW-CV (test code = 788-0) 12.4 % 12.1-15.4 PLT (test code = 777-3) See_Comment [Automated messa ge] The system which generated this result transmitted reference range: 150 - 328 10*3/?L. The reference range was not used to interpret this result as normal/abnormal. MPV (test code = 70283-6) 10.7 fL 9.8-13 NRBC/100 WBC (test code = 8284862116) See_Comment [Automated [employer]age] The system which generated this result transmitted reference range: 0.0 - 10.0 /100 WBCs. The reference range was not used to interpret this result as normal/abnormal. NRBC x10^3 (test code = 4249188503) <0.01 See_Comment [Automated me ssage] The system which generated this result transmitted reference range: 10*3/?L. The reference range was not used to interpret this result as normal/abnormal. GRAN MAT (NEUT) % (test code = 770-8) 60.8 % IMM GRAN % (test code = 5169409107) 0.40 % LYMPH % (test code = 736-9) 29.6 % MONO % (test code = 5905-5) 6.5 % EOS % (test code = 713-8) 2.3 % BASO % (test code = 706-2) 0.4 % GRAN MAT x10^3(ANC) (test code = 3862126313) 4.95 10*3/uL 1.99-6.95 IMM GRAN x10^3 (test code = 5253462620) 0.03 10*3/uL 0-0.06 LYMPH x10^3 (test code = 731-0) 2.41 10*3/uL 1.09-3.23 MONO x10^3 (test code = 742-7) 0.53 10*3/uL 0.36-1.02 EOS x10^3 (test code = 711-2) 0.19 10*3/uL 0.06-0.53 BASO x10^3 (test code = 704-7) 0.03 10*3/uL 0.01-0.09 [facility]"
--- NOTE | 2023-10-17 21:14 | RAD REPORT ---
EXAM DESCRIPTION: [facility] Single View10/17/2023 9:03 pm CLINICAL HISTORY: Chest pain COMPARISON: 2021 FINDINGS: The lungs appear clear of acute infiltrate. The heart is normal size IMPRESSION: No acute abnormalities displayed
[2023-10-17 21:53] LABS: Absolute Lymphocytes (CBC) 2.2 K/uL (0.7-4.9); Hematocrit 40.6 % (39.6-49.0); Lymphocytes % 33.2 % (15.3-44.8); MCV 87.1 fL (80-100); MPV 8.6 fL (7.6-11.3); Platelets 316 thou/uL (152-406); RBC Red Blood Cell Count 4.65 M/uL (4.33-5.43)
[2023-10-17 21:54] LABS: Protime INR 0.98
--- NOTE | 2023-10-17 22:01 | RAD REPORT ---
EXAM DESCRIPTION: CT - Head Brain Wo Cont - 10/17/2023 9:45 pm CLINICAL HISTORY: Headache COMPARISON: none TECHNIQUE: Computed axial tomography of the head was obtained. IV contrast was not requested. All CT scans are performed using dose optimization technique as appropriate and may include automated exposure control or mA/KV adjustment according to patient size. FINDINGS: An intracranial bleed is not seen The ventricles are normal in caliber No significant hypodense areas within the brain visualized No extra-axial fluid collection is noted. Fluid within the sinuses/ mastoids is not seen IMPRESSION: No acute intracranial abnormality is seen If patient's symptoms persist MRI of the brain would be recommended
[2023-10-17 22:11] LABS: ALT/SGPT 22 U/L (16-61); AST/SGOT 10 U/L (15-37); Albumin 3.5 g/dL (3.4-5.0); Alkaline Phosphatase 143 U/L (45-117); BUN Blood Urea Nitrogen 13 mg/dL (7-18); Bicarbonate 26 mEq/L (21-32); Bilirubin Total 0.2 mg/dL (0.2-1.0); Glomerular Filtration Rate 105 ml/min (=/>90); Glucose Level 315 mg/dL (74-106); Potassium 3.6 mEq/L (3.5-5.1); Protein, Total 7.1 g/dL (6.4-8.2); Sodium Level 136 mEq/L (136-145)
[2023-10-17 22:12] LABS: Bilirubin Direct < 0.1 mg/dL (0-0.2); Bilirubin Indirect, Calculated ND mg/dL (0.2-0.8)
[2023-10-17 22:13] LABS: NT PRO-BNP 20 pg/mL (<125); Troponin High Sensitivity 6.1 pg/mL (<58.9)
--- NOTE | 2023-10-18 01:32 | EDPHYS ---
Physician Documentation [facility] Name: Jaden Luna Age: 48 yrs Sex: Male : 1975 Arrival Date: 10/17/2023 Time: 20:32 Bed 18 Private MD: ED Physician Oc Bermudez HPI: 10/17 21:00 This 48 yrs old Male presents to ER via Ambulatory with complaints of Chest cp Pain, Blurred Vision, Shortness Of Breath. 21:00 The patient or guardian reports chest pain that is located primarily in the anterior cp chest wall, left. Onset: 3 day(s) ago. The pain does not radiate. Associated signs and symptoms: Pertinent positives: cough, shortness of breath, blurry vision, Pertinent negatives: abdominal pain, diaphoresis, dizziness, lower extremity pain, lower extremity swelling, palpitations, vomiting. The chest pain is described as sharp. Duration: The patient or guardian reports multiple episodes, that are intermittent, with no pattern. Severity of pain: in the emergency department the pain has improved. Historical: - Allergies: 20:46 No Known Allergies; hb - Home Meds: 20:46 metformin 1 Oral tab 1 tab 2 times per day [Active]; hb - PMHx: 20:46 Diabetes - NIDDM; High Cholesterol; Hypertension; hb - PSHx: 20:46 None; hb - Immunization history:: Adult Immunizations up to date, Client reports receiving the 2nd dose of the Covid vaccine, Flu vaccine is not up to date. It has been more than one year since last vaccine. - Social history:: Smoking status: Reported history of juuling and/or vaping. ROS: 21:05 Constitutional: Negative for body aches, chills, fever, poor PO intake, cp 21:05 Eyes: Positive for blurry vision, Negative for pain, redness, vision loss, cp 21:05 ENT: Negative for drainage from ear(s), ear pain, sore throat, difficulty swallowing, difficulty handling secretions, 21:05 Cardiovascular: Positive for chest pain, Negative for edema, palpitations, 21:05 Respiratory: Positive for cough, shortness of breath, Negative for wheezing, 21:05 Abdomen/GI: Negative for abdominal pain, vomiting, diarrhea, constipation, 21:05 Neuro: Negative for altered mental status, dizziness, headache, syncope, weakness, 21:05 All other systems are negative, Exam: 20:37 ECG was reviewed by the Attending Physician. cp 21:10 Constitutional: The patient appears in no acute distress, alert, awake, cp non-diaphoretic, non-toxic, well developed, well nourished, overweight 21:10 Head/Face: Normocephalic, atraumatic. cp 21:10 Eyes: Periorbital structures: appear normal, Pupils: equal, round, and reactive to light and accomodation, Extraocular movements: intact throughout, Conjunctiva: normal, no exudate, no injection, Sclera: no appreciated abnormality, Lids and lashes: appear normal, bilaterally, 21:10 ENT: External ear(s): are unremarkable, Ear canal(s): are normal, clear, TM's: dullness, bilaterally, Nose: is normal, Mouth: Lips: moist, Oral mucosa: pink and intact, moist, Posterior pharynx: Airway: no evidence of obstruction, patent, Tonsils: are normal in appearance, erythema, is not appreciated, exudate, is not appreciated, 21:10 Neck: ROM/movement: is normal, is supple, without pain, no range of motions limitations, 21:10 Chest/axilla: Inspection: normal, Palpation: is normal, no crepitus, no tenderness, 21:10 Cardiovascular: Rate: tachycardic, Rhythm: regular, Edema: is not appreciated, JVD: is not appreciated, 21:10 Respiratory: the patient does not display signs of respiratory distress, Respirations: normal, no use of accessory muscles, no retractions, labored breathing, is not present, Breath sounds: are clear throughout, no decreased breath sounds, no stridor, no wheezing, 21:10 Abdomen/GI: Inspection: abdomen appears normal, Palpation: abdomen is soft and non-tender, in all quadrants, 21:10 Back: pain, is absent, ROM is normal, 21:10 Neuro: Orientation: to person, place \T\ time. Mentation: is normal, Cerebellar function: is grossly normal, Motor: moves all fours, strength is normal, Sensation: no obvious gross deficits, Vital Signs: 20:45 BP 132 / 88; Pulse 100; Resp 17; Temp 98.2(TE); Pulse Ox 97% on R/A; Weight 113.4 kg; hb Height 5 ft. 7 in. ; Pain 6/10; 20:45 BP 152 / 97; Pulse 108; Resp 16; Pulse Ox 96% on R/A; cm10 21:00 BP 137 / 96; Pulse 106; Resp 16; Pulse Ox 96% on R/A; cm10 21:30 BP 129 / 82; Pulse 103; Resp 16; Pulse Ox 96% on R/A; cm10 22:00 BP 132 / 80; Pulse 102; Resp 19; Pulse Ox 96% on R/A; cm10 22:30 BP 107 / 74; Pulse 96; Resp 18; Pulse Ox 96% ; cm10 23:00 BP 123 / 82; Pulse 93; Resp 16; Pulse Ox 95% on R/A; cm10 23:30 BP 116 / 68; Pulse 91; Resp 17; Pulse Ox 95% on R/A; cm10 10/18 00:30 BP 118 / 73; Pulse 95; Resp 16; Pulse Ox 97% ; jj7 01:32 BP 113 / 65; Pulse 84; Resp 16; Pulse Ox 96% ; jj7 10/17 20:45 Body Mass Index 39.16 (113.40 kg, 170.18 cm) hb 10/17 20:45 Pain Scale: Adult hb MDM: 10/17 20:43 Patient medically screened. cp 10/18 01:30 Data reviewed: vital signs, nurses notes, lab test result(s), EKG, radiologic studies, cp plain films. 01:30 Differential diagnosis: abnormal EKG, acute myocardial infarction, acute pericarditis, cp anxiety, chest wall pain, pericarditis, pleurisy, pneumonia, pneumothorax, pulmonary embolus, stable angina, unstable angina. The patient was given aspirin in the Emergency Department. Consideration of Admission/Observation Escalation of care including admission/observation considered. Care significantly affected by the following chronic conditions: Diabetes, Hypertension. 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 Response to treatment: the patient's symptoms have markedly improved after treatment, and as a result, I will discharge patient. Special discussion: Based on the patient's history, exam, and Dx evaluation, there is no indication for emergent intervention or inpatient Tx. It is understood by the patient/guardian that if the Sx's persist or worsen they need to return immediately for re-evaluation. 10/17 20:52 Order name: Basic Metabolic Panel; Complete Time: 22:42 cp 10/17 20:52 Order name: CBC with Diff; Complete Time: 22:42 cp 10/17 20:52 Order name: LFT's; Complete Time: 22:42 cp 10/17 20:52 Order name: Magnesium; Complete Time: 22:42 cp 10/17 20:52 Order name: NT PRO-BNP; Complete Time: 22:42 cp 10/17 20:52 Order name: PT-INR; Complete Time: 22:42 cp 10/17 20:52 Order name: Troponin HS; Complete Time: 22:42 cp 10/17 20:52 Order name: Influenza Screen (a \T\ B); Complete Time: 22:42 cp 10/17 20:52 Order name: COVID-19 SARS RT PCR; Complete Time: 22:42 cp 10/17 23:28 Order name: Glucose, Ancillary Testing; Complete Time: 00:44 EDMS 10/18 00:44 Interpretation: Reviewed. 10/18 00:17 Order name: Troponin HS; Complete Time: 01:29 cp 10/17 20:52 Order name: XRAY Chest (1 view); Complete Time: 22:42 cp 10/17 20:52 Order name: CT Head Brain wo Cont; Complete Time: 22:42 cp 10/17 20:52 Order name: EKG; Complete Time: 20:52 cp 10/17 20:52 Order name: Cardiac monitoring; Complete Time: 21:49 cp 10/17 20:52 Order name: EKG - Nurse/Tech; Complete Time: 21:49 cp 10/17 20:52 Order name: IV Saline Lock; Complete Time: 21:49 cp 10/17 20:52 Order name: Labs collected and sent; Complete Time: 21:49 cp 10/17 20:52 Order name: O2 Per Protocol; Complete Time: 21:50 cp 10/17 20:52 Order name: O2 Sat Monitoring; Complete Time: 21:50 cp 10/17 20:52 Order name: Accucheck Blood Glucose; Complete Time: 23:16 cp EC/26 20:37 Rate is 106 beats/min. Rhythm is regular. FL interval is normal. QRS interval is cp normal. QT interval is normal. T waves are Inverted in lead aVR. Interpreted by me. Reviewed by me. Administered Medications: 23:28 Drug: Aspirin PO Chewable Tablet 324 mg PO once; 81 mg tablets x 4 Route: PO; cm10 10/18 01:45 Follow up: Response: No adverse reaction jj7 10/17 23:28 Not Given (Ptt): insulin regular human10 units Sub-Q once cm10 Disposition Summary: 10/18/23 01:31 Discharge Ordered Notes: Location: Home cp Problem: new cp Symptoms: have improved cp Condition: Stable cp Diagnosis - Chest pain, unspecified cp - Diabetes mellitus due to underlying condition with hyperglycemia cp Followup: cp - With: Abdirizak Gamez MD - When: 2 - 3 days - Reason: chest pain Discharge Instructions: - Discharge Summary Sheet cp - Nonspecific Chest Pain, Adult cp - Hyperglycemia cp - Daily Diabetes Mellitus Record cp - Blood Glucose Monitoring, Adult cp - Diabetes Mellitus and Nutrition, Adult cp - Aspirin and Your Heart cp Forms: - Medication Reconciliation Form cp - Thank You Letter cp - Antibiotic Education cp - Prescription Opioid Use cp - Patient Portal Instructions cp - Leadership Thank You Letter cp - Work release form jj7 Prescriptions: - Ibuprofen 800 mg Oral Tablet - take 1 tablet ORAL route every 8 hours As needed take with food; 30 tablet; cp Refills: 0, Product Selection Permitted Signatures: Dispatcher [employer] EDCA Lawrence Tang PA PA cp Ama Campoverde RN RN Meghan Jarvis RN RN cm10 Martinez Pickard RN jj7
--- NOTE | 2023-10-18 01:32 | ER ---
Nurse's Notes [facility] Name: Jaden Luna Age: 48 yrs Sex: Male : 1975 Arrival Date: 10/17/2023 Time: 20:32 Bed 18 Private MD: Diagnosis: Chest pain, unspecified;Diabetes mellitus due to underlying condition with hyperglycemia Presentation: 10/17 20:45 Chief complaint: Chest tightness, intermittent sharp left sided chest [place] and SOB x 3 hb days. Coronavirus screen: At this time, the client does not indicate any symptoms associated with coronavirus-19. Ebola Screen: No symptoms or risks identified at this time. Initial Sepsis Screen: Does the patient meet any 2 criteria? No. Patient's initial sepsis screen is negative. Does the patient have a suspected source of infection? No. Patient's initial sepsis screen is negative. Risk Assessment: Do you want to hurt yourself or someone else? Patient reports no desire to harm self or others. Onset of symptoms was October 15, 2023. 20:45 Method Of Arrival: Ambulatory hb 20:45 Acuity: JAMES 3 hb Triage Assessment: 20:47 General: Appears in no apparent distress. Behavior is calm, cooperative. Pain: Pain hb currently is 6 out of 10 on a pain scale. Neuro: Level of Consciousness is awake, alert, obeys commands, Oriented to person, place, time, situation. Cardiovascular: Reports chest pain, Patient's skin is warm and dry. Respiratory: Respiratory effort is even, unlabored, Respiratory pattern is regular, symmetrical. Historical: - Allergies: 20:46 No Known Allergies; hb - Home Meds: 20:46 metformin 1 Oral tab 1 tab 2 times per day [Active]; hb - PMHx: 20:46 Diabetes - NIDDM; High Cholesterol; Hypertension; hb - PSHx: 20:46 None; hb - Immunization history:: Adult Immunizations up to date, Client reports receiving the 2nd dose of the Covid vaccine, Flu vaccine is not up to date. It has been more than one year since last vaccine. - Social history:: Smoking status: Reported history of juuling and/or vaping. Screenin:40 [facility] ED Fall Risk Assessment (Adult) History of falling in the last 3 months, cm10 including since admission No falls in past 3 months (0 pts) Confusion or Disorientation No (0 pts) Intoxicated or Sedated No (0 pts) Impaired Gait No (0 pts) Mobility Assist Device Used No (0 pt) Altered Elimination No (0 pt) Score/Fall Risk Level 0 - 2 = Low Risk Oriented to surroundings, Maintained a safe environment, Hourly rounding (assess needs \T\ fall precautionary measures) done. Abuse screen: Denies threats or abuse. Denies injuries from another. Nutritional screening: No deficits noted. Tuberculosis screening: No symptoms or risk factors identified. Assessment: 21:41 General: Appears in no apparent distress. comfortable, Behavior is calm, cooperative. cm10 Pain: Complains of pain in chest Pain does not radiate. Pain currently is 5 out of 10 on a pain scale. Quality of pain is described as sharp, Pain began 2 weeks ago Is continuous, Also complains of shortness of breath. Neuro: No deficits noted. Level of Consciousness is awake, alert, obeys commands, Oriented to person, place, time, situation. Cardiovascular: No deficits noted. Heart tones present Capillary refill < 3 seconds Patient's skin is warm and dry. Respiratory: No deficits noted. Airway is patent Respiratory effort is even, unlabored, Respiratory pattern is regular, symmetrical, Breath sounds are clear bilaterally. GI: No deficits noted. No signs and/or symptoms were reported involving the gastrointestinal system. : No deficits noted. No signs and/or symptoms were reported regarding the genitourinary system. EENT: No deficits noted. No signs and/or symptoms were reported regarding the EENT system. Derm: No deficits noted. No signs and/or symptoms reported regarding the dermatologic system. Skin is intact, Skin is pink, warm \T\ dry. Musculoskeletal: No deficits noted. No signs and/or symptoms reported regarding the musculoskeletal system. Range of motion: intact in all extremities. 23:28 Reassessment: Insulin not given at this time due to pt's BGL being 266. Per provider, cm10 ok to hold. 23:43 Reassessment: Patient appears in no apparent distress at this time. No changes from cm10 previously documented assessment. Patient and/or family updated on plan of care and expected duration. Pain level reassessed. Patient is alert, oriented x 3, equal unlabored respirations, skin warm/dry/pink. 10/18 00:21 Reassessment: ASSUMED CARE OF PT. PT SLEEPING. NO DISTRESS NOTED. VS STABLE. CALL NEVES jj7 IN REACH. Vital Signs: 10/17 20:45 BP 132 / 88; Pulse 100; Resp 17; Temp 98.2(TE); Pulse Ox 97% on R/A; Weight 113.4 kg; hb Height 5 ft. 7 in. ; Pain 6/10; 20:45 BP 152 / 97; Pulse 108; Resp 16; Pulse Ox 96% on R/A; cm10 21:00 BP 137 / 96; Pulse 106; Resp 16; Pulse Ox 96% on R/A; cm10 21:30 BP 129 / 82; Pulse 103; Resp 16; Pulse Ox 96% on R/A; cm10 22:00 BP 132 / 80; Pulse 102; Resp 19; Pulse Ox 96% on R/A; cm10 22:30 BP 107 / 74; Pulse 96; Resp 18; Pulse Ox 96% ; cm10 23:00 BP 123 / 82; Pulse 93; Resp 16; Pulse Ox 95% on R/A; cm10 23:30 BP 116 / 68; Pulse 91; Resp 17; Pulse Ox 95% on R/A; cm10 10/18 00:30 BP 118 / 73; Pulse 95; Resp 16; Pulse Ox 97% ; jj7 01:32 BP 113 / 65; Pulse 84; Resp 16; Pulse Ox 96% ; jj7 10/17 20:45 Body Mass Index 39.16 (113.40 kg, 170.18 cm) hb 10/17 20:45 Pain Scale: Adult hb ED Course: 10/17 20:37 Patient arrived in ED. im 20:43 Lawrence Tang PA is PHCP. cp 20:43 Oc Bermudez MD is Attending Physician. cp 20:46 Triage completed. hb 20:47 Arm band placed on. hb 20:51 Lashon Love, RN is Primary Nurse. me1 21:05 XRAY Chest (1 view) In Process Unspecified. EDMS 21:20 Primary Nurse role handed off by Lashon Love, RN ap3 21:[address] via stretcher. cm10 21:39 Initial lab(s) drawn, by me, sent to lab. Inserted saline lock: 20 gauge in left cm10 forearm, using aseptic technique. Blood collected. Missed attempt(s): 20 gauge in left wrist. Bleeding controlled, band aid applied, catheter tip intact. Patient maintains SpO2 saturation greater than 95% on room air. 21:40 Patient has correct armband on for positive identification. Placed in gown. Bed in low cm10 position. Call light in reach. Side rails up X2. Provided Education on: ER process and procedures. . Client placed on continuous cardiac and pulse oximetry monitoring. NIBP monitoring applied. 21:47 CT Head Brain wo Cont In Process Unspecified. EDMS 21:[address] moved [address]. cm10 10/18 00:20 Martinez Pickard, RN is Primary Nurse. jj7 00:47 Troponin HS Sent. jj7 01:30 Abdirizak Gamez MD is Referral Physician. cp 01:46 No provider procedures requiring assistance completed. IV discontinued, intact, jj7 bleeding controlled, No redness/swelling at site. Pressure dressing applied. Administered Medications: 10/17 23:28 Drug: Aspirin PO Chewable Tablet 324 mg PO once; 81 mg tablets x 4 Route: PO; cm10 10/18 01:45 Follow up: Response: No adverse reaction jj7 10/17 23:28 Not Given (Ptt): insulin regular human10 units Sub-Q once cm10 Medication: 21:41 VIS not applicable for this client. cm10 Outcome: 10/18 01:31 Discharge ordered by . cp 01:46 Discharged to home ambulatory, j 01:46 Condition: improved 01:46 Discharge instructions given to patient, Instructed on discharge instructions, follow up and referral plans. medication usage, Demonstrated understanding of instructions, follow-up care, medications, Prescriptions given X 1, 01:46 Patient left the ED. jj7 Signatures: Dispatcher [employer] EDOK Lawrence Tang PA PA cp Baxter, Heather, RN JHONNY Bobbi Garcia RN RN ap3 Martinez Pickard RN RN jj7 Kori Bansal Clarissa, RN RN cm10 Lashon Love RN RN me1
[2023-10-18 02:11] VITALS: BP 113/65; TEMP 98.2; O2SAT 96
--- NOTE | 2023-10-18 15:48 | EKG ---
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
== END ==
LOC: ER 20:32
DX: R07.89 Other chest pain (principal); E11.65 Type 2 diabetes mellitus with hyperglycemia
CPT/HCPCS: 36415; 70450; 71045; 80048; 80076; 82947; 83735; 83880; 84484; 85025; 85610; 87635; 87804; 93005

== ENCOUNTER 2024-08-26 20:10 | Emergency (ER) | payer OTHER, SELFPAY ==
--- OUTSIDE RECORDS SUMMARY | 2024-08-26 20:15 | XMS REPORT | Continuity of Care Document ---
Author Name Unknown Address [address] [facility] [address] [place] [address] [facility] thconnect Address [address] [facility] [address] [place] [address] Care Team Providers Care Delphi Programmer Name Role Phone Yatahey YUAN Anderson Primary Care Physician [phone] Zulma Bejarano MD Attending Clinician [phone] Parish Deleon Attending Clinician [phone] Oneyda Fletcher Attending Clinician [phone] FRANCHESKA ALLEN Attending Clinician Unavailable Francheska Allen MD Attending Clinician [phone] David Ernst Attending Clinician [phone] David MOREAU Attending Clinician Unavailable Payers Payer Name Policy Type Policy Number Effective Date Expirati on Date Source [facility] [id number] 2022 00:00:00 Problems Condition Name Condition Details Condition Category Status Onset Date Resolution Date Last Treatment Date Treating Clinician Comments Source Closed displaced transverse fracture of shaft of right femur Closed displaced transverse fracture of shaft of right femur Disease Active 10-04 00:00: 00 [facility] Closed displaced intertroch anteric fracture of right femur Closed displaced intertroch anteric fracture of right femur Disease Active 10-04 00:00: 00 [facility] Allergies, Adverse Reactions, Alerts Allergy Name Allergy Type Status Severity Reaction(s) Onset Date Inactive Date Treating Clinician Comments Source NO KNOWN ALLERGIE S Drug Class Active [facility] Social History Social Habit Start Date Stop Date Quantity Comments Source Sexual orientation [facility] Exposure to SARS-CoV-2 (event) 2023-01-08 00:00:00 2023-01-18 10:46:00 Not sure [facility] Sex assigned at 1975 00:00:00 1975 00:00:00 [facility] Smoking Status Start Date Stop Date Source Tobacco smoking consumption unknown [facility] Medications Ordered Medication Name Filled Medication Name Start Date Stop Date Current Medication? Ordering Clinician Indication Dosage Frequency Signature (SIG) Comments Components Source losartan 25 mg tablet 2023-08 00:00: 00 Yes 1mg Hebert Carrillo glyburide 5 mg tablet 2023-08 00:00: 00 Yes 1mg Hebert Carrillo metformin 1,000 mg tablet 2023-08 00:00: 00 Yes 1mg Hebert Carrillo atorvastati n 40 mg tablet 2023-08 00:00: 00 Yes 1mg Hebert Carrillo ondansetron 4 mg disintegrat ing tablet 2023-08 00:00: 00 Yes 1mg Hebert Carrillo omeprazole 40 mg capsule,del ayed release 2023-08 00:00: 00 Yes 1mg Hebert Carrillo losartan 25 mg tablet 03-29 00:00: 00 Yes 1mg Hebert Carrillo glyburide 5 mg tablet 03-29 00:00: 00 Yes 1mg Hebert Carrillo metformin 1,000 mg tablet 03-29 00:00: 00 Yes 1mg Hebert Carrillo atorvastati n 40 mg tablet 03-29 00:00: 00 Yes 1mg Hebert Carrillo ondansetron 4 mg disintegrat ing tablet 03-29 00:00: 00 Yes 1mg Hebert Carrillo losartan 25 mg tablet 01-03 00:00: 00 Yes 1mg Hebert Carrillo metformin 1,000 mg tablet 01-03 00:00: 00 Yes 1mg Hebert Carrillo glyburide 5 mg tablet 01-03 00:00: 00 Yes 1mg Hebert Carrillo atorvastati n 40 mg tablet 01-03 00:00: 00 Yes 1mg Hebert Carrillo TAKE 1 TABLET BY MOUTH TWICE A DAY 2022-08 00:00: 00 01-03 00:00 :00 No 10 Hebert Carrillo TAKE 1 TABLET BY MOUTH EVERY EVENING 2022-08 00:00: 00 01-03 00:00 :00 No 20 Hebert Carrillo TAKE 1 TABLET TWICE DAILY. 2022-08 00:00: 00 01-03 00:00 :00 No 1000 Hebert Carrillo ergocalcife rol (Drisdol) 1.25 MG (34875 UT) capsule 2022-08 00:00: 00 08-28 05:59 :00 No [id number] Take 1 capsule (50,000 Units total) by mouth 1 (one) time per week. [facility] ergocalcife rol (Drisdol) 1.25 MG (92615 UT) capsule 03-22 00:00: 00 05-22 04:59 :00 No [id number] Take 1 capsule (50,000 Units total) by mouth 1 (one) time per week. [facility] INJECT 23 UNITS SUBCUTANEOU SLY EVERY 12 HOURS 09-22 00:00: 00 Yes Hebert Carrillo TAKE 2 TABLETS BY MOUTH EVERY 8 HOURS FOR 5 DAYS NEEDED (PAIN SCOR 7-10) 09-22 00:00: 00 Yes Hebert Carrillo TAKE 1 TABLET BY MOUTH TWICE DAILY WITH A MEAL 09-22 00:00: 00 Yes Hebert Carrillo TAKE 1 CAPSULE BY MOUTH 4 TIMES DAILY FOR 10 DAYS 2021-08 00:00: 00 Yes Hebert Carrillo Dose Unknown 2021-08 00:00: 00 Yes Hebert Carrillo TAKE 1 TABLET TWICE DAILY. 2021-08 00:00: 00 01-03 00:00 :00 No Hebert Carrillo Dose Unknown 2021-08 00:00: 00 01-03 00:00 :00 No Hebert Carrillo Dose Unknown 2021-08 00:00: 00 01-03 00:00 :00 No Hebert Carrillo TAKE 1 TABLET BY MOUTH EVERY 8 HOURS NEEDED FOR PAIN (SCALE 4-6) 2021-08 00:00: 00 No TAKE 1 TABLET BY MOUTH EVERY 8 HOURS NEEDED FOR PAIN (SCALE 4-6) 2021-08 00:00: 00 Yes Hebert Carrillo ibuprofen 600 mg tablet 2020-08 00:00: 00 Yes [id number] 600mg Take 1 tablet by mouth every 8 (eight) hours as needed for Pain (scale 4-6). [facility] clindamycin 300 mg capsule 2020-08 00:00: 00 08-13 05:59 :00 No [id number] 300mg Take 1 capsule by mouth 4 (four) times daily for 10 days. [facility] NaCl 0.9% (NS) bolus infusion 1,000 mL 03-31 22:00: 00 03-31 21:53 :00 No 1000mL at 999 mL/hr, 1,000 mL, IV Infusion, ONCE, 1 dose, 03/31/20 at 1700, STAT [facility] NaCl 0.9% (NS) bolus infusion 1,000 mL 03-31 19:15: 00 03-31 21:07 :00 No 1000mL at 999 mL/hr, 1,000 mL, IV Infusion, ONCE, 1 dose, 03/31/20 at 1415, STAT [facility] Immunizations Ordered Immunization Name Filled Immunization Name Date Status Comments Source COVID-19 Moderna 12 & Over Vaccination (ECONOMIC GEOGRAPHER) 2021-08-21 00:00:00 Completed [facility] COVID-19 Moderna Primary 12+yr (red) 2021-08-21 00:00:00 Completed [facility] COVID-19 Moderna Primary 12+yr (red) 2021-08-21 00:00:00 Completed [facility] COVID-19 Moderna Primary 12+yr (red) Unknown [facility] Moderna Primary 12+yr (red) Unknown [facility] Vital Signs Vital Name Observation Time Observation Value Comments S heidy Systolic blood pressure 2021-08-02 18:20:00 133 mm[Hg] [facility] Diastolic blood pressure 2021-08-02 18:20:00 78 mm[Hg] [facility] Heart rate 2021-08-02 18:20:00 97 /min Un[facility] Body temperature 2021-08-02 18:20:00 37.22 Irina [facility] Respiratory rate 2021-08-02 18:20:00 18 /min [facility] Oxygen saturation in Arterial blood by Pulse oximetry 2021-08-02 18:20:00 95 /min [facility] Body height 2021-08-02 17:48:00 170.2 cm [facility] Body weight 2021-08-02 17:48:00 108.41 kg [facility] BMI 2021-08-02 17:48:00 37.43 kg/m2 [facility] Systolic blood pressure 2020-03-31 20:15:00 130 mm[Hg] [facility] Diastolic blood pressure 2020-03-31 20:15:00 78 mm[Hg] [facility] Heart rate 2020-03-31 20:15:00 93 /min [facility] Respiratory rate 2020-03-31 20:15:00 18 /min [facility] Oxygen saturation in Arterial blood by Pulse oximetry 2020-03-31 20:15:00 96 /min [facility] Body temperature 2020-03-31 17:52:00 36.5 Irina [facility] Body weight 2020-03-31 17:52:00 108.863 kg [facility] Systolic blood pressure 2020-03-31 20:15:00 130 mm[Hg] [facility] Diastolic blood pressure 2020-03-31 20:15:00 78 mm[Hg] [facility] Heart rate 2020-03-31 20:15:00 93 /min [facility] Respiratory rate 2020-03-31 20:15:00 18 /min [facility] Oxygen saturation in Arterial blood by Pulse oximetry 2020-03-31 20:15:00 96 /min [facility] Body temperature 2020-03-31 17:52:00 36.5 Irina [facility] Body weight 2020-03-31 17:52:00 108.863 kg [facility] BP Systolic 2024-06-28 17:00:00 126 mm[Hg] Step hen F Gerardo BP Diastolic 2024-06-28 17:00:00 80 mm[Hg] David phen F Gerardo Weight Measured 2024-06-28 17:00:00 244.80 pounds Hebert F Gerardo Height Measured 2024-06-28 17:00:00 65.00 inches Hebert F Gerardo Body Temperature 2024-06-28 17:00:00 98.40 degrees Hebert F Gerardo Heart Rate 2024-06-28 17:00:00 96.00 /min Audrey en F Gerardo Respiratory Rate 2024-06-28 17:00:00 16.00 /min Hebert F Gerardo BP Systolic 2024-03-29 17:03:00 128 mm[Hg] Step hen F Gerardo BP Diastolic 2024-03-29 17:03:00 78 mm[Hg] David phen F Gerardo Weight Measured 2024-03-29 17:03:00 246.40 pounds Hebert F Gerardo Height Measured 2024-03-29 17:03:00 65.00 inches Hebert F Gerardo Body Temperature 2024-03-29 17:03:00 98.30 degrees Hebert F Gerardo Heart Rate 2024-03-29 17:03:00 97.00 /min Audrey en F Gerardo Respiratory Rate 2024-03-29 17:03:00 18.00 /min Hebert F Gerardo BP Systolic 2024-01-30 16:45:00 134 mm[Hg] Step hen F Gerardo BP Diastolic 2024-01-30 16:45:00 67 mm[Hg] David phen F Gerardo Weight Measured 2024-01-30 16:45:00 246.20 pounds Hebert F Gerardo Height Measured 2024-01-30 16:45:00 65.00 inches Hebert F Gerardo Body Temperature 2024-01-30 16:45:00 98.20 degrees Hebert F Gerardo Heart Rate 2024-01-30 16:45:00 99.00 /min Audrey en F Gerardo Respiratory Rate 2024-01-30 16:45:00 18.00 /min Hebert F Gerardo BP Systolic 2024-01-04 16:31:00 142 mm[Hg] Step hen F Gerardo BP Diastolic 2024-01-04 16:31:00 98 mm[Hg] David phen F Gerardo Weight Measured 2024-01-04 16:31:00 249.60 pounds Hebert F Gerardo Height Measured 2024-01-04 16:31:00 65.00 inches Hebert F Gerardo Body Temperature 2024-01-04 16:31:00 98.20 degrees Hebert F Gerardo Heart Rate 2024-01-04 16:31:00 105.00 /min Step hen F Gerardo Respiratory Rate 2024-01-04 16:31:00 Hebert F Gerardo BP Systolic 2023-08-03 17:14:00 143 mm[Hg] Step hen F Gerardo BP Diastolic 2023-08-03 17:14:00 93 mm[Hg] David phen F Gerardo Weight Measured 2023-08-03 17:14:00 247.20 pounds Hebert F Gerardo Height Measured 2023-08-03 17:14:00 65.00 inches Hebert F Gerardo Body Temperature 2023-08-03 17:14:00 98.30 degrees Hebert F Gerardo Heart Rate 2023-08-03 17:14:00 93.00 /min Audrey en F Gerardo Respiratory Rate 2023-08-03 17:14:00 18.00 /min Hebert F Gerardo BP Systolic 2022-07-07 17:31:00 120 mm[Hg] Step hen F Gerardo BP Diastolic 2022-07-07 17:31:00 78 mm[Hg] David phen F Gerardo Weight Measured 2022-07-07 17:31:00 253.20 pounds Hebert F Gerardo Height Measured 2022-07-07 17:31:00 65.00 inches Hebert F Gerardo Body Temperature 2022-07-07 17:31:00 98.10 degrees Hebert F Gerardo Heart Rate 2022-07-07 17:31:00 113.00 /min Step hen F Gerardo Respiratory Rate 2022-07-07 17:31:00 17.00 /min Hebert F Gerardo Procedures Procedure Date / Time Performed Performing Clinicia n Source POCT GLUCOSE (AUTOMATED) 2021-08-02 17:59:00 Francheska Allen [facility] CONSENT/REFUSAL FOR DIAGNOSIS AND TREATMENT 2021-08-02 17:35:20 Doctor Unassigned, Colby [facility] NOTICE OF PRIVACY PRACTICES 2021-08-02 17:35:03 Doctor Unassigned, Colby [facility] URINALYSIS 2020-03-31 20:32:00 David Moreau [facility] MAGNESIUM 2020-03-31 18:40:00 David Moreau [facility] COMP. METABOLIC PANEL (26481) 2020-03-31 18:40:00 David Moreau [facility] CBC WITH DIFF 2020-03-31 18:40:00 David Moreau [facility] EKG-12 LEAD 2020-03-31 18:03:18 David Moreau [facility] Plan of Care Planned Activity Planned Date Details Comments Source Goal Plan of Care Note [code = 07252-0] Goal Plan of Care Note [code = 35049-9] Goal Plan of Care Note [code = 78060-3] Goal Plan of Care Note [code = 69807-9] Goal Plan of Care Note [code = 01392-8] Goal Plan of Care Note [code = 84625-0] Goal Plan of Care Note [code = 94079-3] Encounters Start Date/Time End Date/Time Encounter Type Admission Type Attending Clinicians Care Facility Care Department Encounter ID Source 2024-02-10 12:40:59 Outpatient [facility] [id number] [facility] 2024-01-20 07:59:54 Outpatient [facility] [id number] [facility] 2023-10-25 12:35:48 Outpatient [facility] [id number] [facility] 2023-02-17 07:28:39 Outpatient [facility] [id number] [facility] 2023-01-13 08:06:26 Outpatient [facility] [id number] [facility] 2023-01-07 07:37:41 Outpatient [facility] [id number] [facility] 2023-01-06 16:25:21 Outpatient [facility] [id number] [facility] 2022-12-20 14:37:36 Outpatient [facility] [id number] [facility] 2022-12-07 07:46:15 Outpatient [facility] [id number] [facility] 2022-10-08 14:34:18 Outpatient [facility] [id number] [facility] 2022-10-05 11:18:12 Outpatient [facility] [id number] [facility] 2022-09-27 11:20:52 Outpatient [facility] [id number] [facility] 2024-07-03 08:41:03 2024-07-03 08:41:03 Outpatient [facility] [id number] Hebert Carrillo 2024-06-28 16:47:48 2024-06-28 16:47:48 Outpatient [facility] [id number] [id number] Hebert Carrillo 2024-06-28 00:00:00 2024-06-28 00:00:00 Outpatient Visit [facility] [id number] Hebert Carrillo 2024-03-29 16:56:12 2024-03-29 16:56:12 Outpatient [facility] SFA [id number] Hebert Carrillo 2024-03-29 00:00:00 2024-03-29 00:00:00 Outpatient Visit [facility] [id number] Hebert Carrillo 2024-01-30 16:38:39 2024-01-30 16:38:39 Outpatient [facility] SFA [id number] Hebert Carrillo 2024-01-30 00:00:00 2024-01-30 00:00:00 Outpatient Visit [facility] [id number] Hebert Carrillo 2024-01-09 16:00:39 2024-01-09 16:00:39 Outpatient [facility] SFA [id number] Hebert Carrillo 2024-01-04 16:25:56 2024-01-04 16:25:56 Outpatient [facility]FA SFA [id number] Hebert Carrillo 2024-01-04 00:00:00 2024-01-04 00:00:00 Outpatient Visit [facility] [id number] Hebert Portillo Gerardo 2023-10-25 12:30:00 2023-10-25 13:03:11 Office Visit Zulma Bejarano [facility] [address] [id number] [facility] 2023-10-25 12:30:00 2023-10-25 12:30:00 Outpatient [facility] [id number] [facility] 2023-09-13 12:45:00 2023-09-13 12:45:00 Outpatient [facility] [id number] [facility] 2023-09-06 13:15:00 2023-09-06 13:15:00 Outpatient ZULMA BEJARANO [facility] [id number] [facility] 2023-09-06 13:15:00 2023-09-06 13:15:00 Outpatient [facility] [id number] [facility] 2023-08-11 15:14:32 2023-08-11 15:14:32 Outpatient SFA [id number] [id number] Hebert Portillo Gerardo 2023-08-03 17:08:10 2023-08-03 17:08:10 Outpatient SFA [id number] [id number] Hebert Portillo [place] 2023-06-28 10:00:00 2023-06-28 10:34:40 Office Visit OlafCaity keenamarjit [facility] [address] [id number] [facility] 2023-06-28 10:00:00 2023-06-28 10:34:40 Outpatient [facility] [id number] [facility] 2023-03-22 11:30:00 2023-03-22 11:30:00 Outpatient [facility] [id number] [facility] 2023-03-22 11:30:00 2023-03-22 11:30:00 Office Visit Parish Babin [facility] [address] [id number] [facility] 2023-01-18 11:30:00 2023-01-18 11:30:00 Office Visit Zulma Bejarano [facility] [address] [id number] [facility] 2023-01-18 11:30:00 2023-01-18 11:22:40 Outpatient [facility] [id number] [facility] 2022-12-07 11:30:00 2022-12-07 11:43:11 Outpatient [facility] [id number] [facility] 2022-12-07 11:30:00 2022-12-07 11:43:11 Office Visit Oneyda Quarles [facility] [address] [id number] [facility] 2022-11-02 11:45:00 2022-11-02 11:45:00 Outpatient ONEYDA QUARLES [facility] [id number] [facility] 2022-10-05 11:45:00 2022-10-05 12:32:47 Office Visit Zulma Bejarano [facility] [address] [id number] 350.1.13.58 [id number] [facility] 2022-10-05 11:45:00 2022-10-05 12:32:47 Outpatient [facility] [id number] [facility] 2022-09-20 14:00:00 2022-09-20 14:00:00 Outpatient ZULMA BEJARANO [facility] [id number] [facility] 2022-07-13 10:33:28 2022-07-13 10:33:28 Outpatient [facility] [id number] Hebert Carrillo 2022-07-07 17:26:51 2022-07-07 17:26:51 Outpatient [facility] [id number] Hebert Carrillo 2022-07-07 00:00:00 2022-07-07 00:00:00 Outpatient Visit [id number] 2021-08-02 12:00:00 2021-08-02 12:50:00 Emergency X FRANCHESKA ALLEN [facility] ERT [id number] [facility] 2021-08-02 12:00:00 2021-08-02 12:50:[address] [facility] [id number] [id number] [facility] 2020-03-31 12:53:00 2020-03-31 16:56:00 Emergency [facility] 1.2.840.114 350.1.13.10 [id number] [id number] [facility] 2020-03-31 12:53:00 2020-03-31 16:56:00 Emergency David Moreau [facility] [id number] [id number] 2020-03-31 12:53:00 2020-03-31 12:53:00 Emergency David HERNANDEZ [facility] ERT [id number] [facility] Results Test Description Test Time Test Comments Results Result Co mments Source COMPREHENSIVE METABOLIC [id number] 04:09:00* Test Item Value Reference Range Interpretation Comme nts GLUCOSE (test code = 2217) 111 MG/DL 70-99 H BUN (test code = 2208) 15 MG/DL 6-20 CREATININE (test code = 2213) 0.62 MG/DL 0.80-1.40 L eGFR (2020 CKD-EPI) (test code = 66954) 117 ML/MIN/1.73 >60 CALC BUN/CREAT (test code = 2234) 24 RATIO 6-28 SODIUM (test code = 2230) 141 MEQ/L 133-146 POTASSIUM (test code = 2227) 4.4 MEQ/L 3.5-5.4 CHLORIDE (test code = 2214) 105 MEQ/L 95-107 CARBON DIOXIDE (test code = 2205) 23 MEQ/L 19-31 CALCIUM (test code = 2208) 9.9 MG/DL 8.5-10.5 PROTEIN, TOTAL (test code = 2228) 7.2 G/DL 6.1-8.3 ALBUMIN (test code = 2200) 4.8 G/DL 3.5-5.2 CALC GLOBULIN (test code = 2239) 2.4 G/DL 1.9-3.7 CALC A/G RATIO (test code = 2233) 2.0 RATIO 1.0-2.6 BILIRUBIN, TOTAL (test code = 2206) 0.2 MG/DL <=1.2 ALKALINE PHOSPHATASE (test code = 2203) 115 U/L 40-118 AST (test code = 2217) 15 U/L 9-50 ALT (test code = 2218) 17 U/L 5-50 UNLESS OTHERWISE INDICATED, ALL TESTING PERFORMED AT [facility] [address] [place] [address] CIGAR BANDER: RIKI MAYA M.D. [facility] NUMBER [id number] [facility] [place]. [id number] HEMOGLOBIN [id number] 03:21:06* Test Item Value Reference Range Interpretation Comme nts HEMOGLOBIN A1c (test code = 34989) 7.3 % 4.2-5.6 H [employer] GUIDELINES FOR HGB A1C: [...] ETC.). CONSIDER ALTERNATE TESTING OR LABORATORY CONSULTATION. HEMOGLOBIN [id number] 00:00:00* Test Item Value Reference Range Interpretation Comme nts HEMOGLOBIN A1c (test code = 90153) 7.3 % Hebert Portillo [place] [id number] 00:00:00* Test Item Value Reference Range Interpretation Comme nts CHOLESTEROL (test code = 2210) 198 MG/DL TRIGLYCERIDES (test code = 2232) 185 MG/DL HDL CHOLESTEROL (test code = 2220) 52 MG/DL CALC LDL CHOL (test code = 2237) 115 MG/DL RISK RATIO LDL/HDL (test cod e = 2238) 2.21 RATIO Hebert Portillo AustinCOMPREHENSIVE METABOLIC [id number] 00:00:00* Test Item Value Reference Range Interpretation Comme nts GLUCOSE (test code = 2217) 111 MG/DL BUN (test code = 2208) 15 MG/DL CREATININE (test code = 2214) 0.62 MG/DL eGFR (2020 CKD-EPI) (test code = 79022) 117 ML/MIN/1.73 CALC BUN/CREAT (test code = 2235) 24 RATIO SODIUM (test code = 2231) 141 MEQ/L POTASSIUM (test code = 2228) 4.4 MEQ/L CHLORIDE (test code = 2215) 105 MEQ/L CARBON DIOXIDE (test code = 2206) 23 MEQ/L CALCIUM (test code = 2209) 9.9 MG/DL PROTEIN, TOTAL (test code = 2229) 7.2 G/DL ALBUMIN (test code = 2201) 4.8 G/DL CALC GLOBULIN (test code = 2240) 2.4 G/DL CALC A/G RATIO (test code = 2234) 2.0 RATIO BILIRUBIN, TOTAL (test code = 2207) 0.2 MG/DL ALKALINE PHOSPHATASE (test code = 2204) 115 U/L AST (test code = 2218) 15 U/L ALT (test code = 2219) 17 U/L Hebert Portillo AustinCOMPREHENSIVE METABOLIC [id number] 04:44:56* Test Item Value Reference Range Interpretation Comme nts GLUCOSE (test code = 2217) 260 MG/DL 70-99 H BUN (test code = 2208) 16 MG/DL 6-20 CREATININE (test code = 2214) 0.78 MG/DL 0.80-1.40 L eGFR (2020 CKD-EPI) (test code = 46030) 109 ML/MIN/1.73 >60 CALC BUN/CREAT (test code = 2234) 21 RATIO 6-28 SODIUM (test code = 2230) 137 MEQ/L 133-146 POTASSIUM (test code = 2227) 3.9 MEQ/L 3.5-5.4 CHLORIDE (test code = 2214) 100 MEQ/L 95-107 CARBON DIOXIDE (test code = 2205) 21 MEQ/L 19-31 CALCIUM (test code = 2208) 9.8 MG/DL 8.5-10.5 PROTEIN, TOTAL (test code = 2228) 7.1 G/DL 6.1-8.3 ALBUMIN (test code = 2200) 4.6 G/DL 3.5-5.2 CALC GLOBULIN (test code = 2239) 2.5 G/DL 1.9-3.7 CALC A/G RATIO (test code = 2233) 1.8 RATIO 1.0-2.6 BILIRUBIN, TOTAL (test code = 2206) 0.3 MG/DL <=1.2 ALKALINE PHOSPHATASE (test code = 2203) 128 U/L 40-118 H AST (test code = 2217) 17 U/L 9-50 ALT (test code = 2218) 17 U/L 5-50 LIPID [id number] 04:44:56* Test Item Value Reference Range Interpretation Comme nts CHOLESTEROL (test code = 0) 174 MG/DL <200 TRIGLYCERIDES (test code = 2231) 195 MG/DL <150 H HDL CHOLESTEROL (test code = 2219) 56 MG/DL >39 CALC LDL CHOL (test code = 2236) 89 MG/DL <100 NOTE: CALCULATED LDL IS BASED ON HAZEL-MARI METHOD WHICHINCLUDES ADJUSTABLE TRIGLYCERIDE:VLDL CHOLESTEROL RATIO.THIS FACTOR VARIES BY MEASURED TRIGLYCERIDE AND NON-HDLCHOLESTEROL CONCENTRATIONS WITH INCREASED CALCULATED LDL SEENIN HIGHER TRIGLYCERIDE OR LOWER NON-HDL SPECIMENS. FOR MOREINFORMATION, SEE CLIENT ANNOUNCEMENT AT [email or web address] RATIO LDL/HDL (test code = 2237) 1.59 RATIO <3.55 HEMOGLOBIN [id number] 02:57:13* Test Item Value Reference Range Interpretation Comme nts HEMOGLOBIN A1c (test code = 22915) 10.7 % 4.2-5.6 H [employer] GUIDELINES FOR HGB A1C: [...] ETC.). CONSIDER ALTERNATE TESTING OR LABORATORY CONSULTATION. UNLESS OTHERWISE INDICATED, ALL TESTING PERFORMED AT [facility] [email or web address] [address] [place] [address] CIGAR BANDER: RIKI MAYA M.D. [place] NUMBER [id number] [facility] [place]. [id number] HEMOGLOBIN [id number] 00:00:00* Test Item Value Reference Range Interpretation Comme [facility] HEMOGLOBIN A1c (test code = 46057) 10.7 % Hebert CarrilloCOMPREHENSIVE METABOLIC [id number] 00:00:00* Test Item Value Reference Range Interpretation Comme nts GLUCOSE (test code = 2217) 260 MG/DL BUN (test code = 2208) 16 MG/DL CREATININE (test code = 2214) 0.78 MG/DL eGFR (2020 CKD-EPI) (test code = 73067) 109 ML/MIN/1.73 CALC BUN/CREAT (test code = 2235) 21 RATIO SODIUM (test code = 2231) 137 MEQ/L POTASSIUM (test code = 2228) 3.9 MEQ/L CHLORIDE (test code = 2215) 100 MEQ/L CARBON DIOXIDE (test code = 2206) 21 MEQ/L CALCIUM (test code = 2209) 9.8 MG/DL PROTEIN, TOTAL (test code = 2229) 7.1 G/DL ALBUMIN (test code = 2201) 4.6 G/DL CALC GLOBULIN (test code = 2240) 2.5 G/DL CALC A/G RATIO (test code = 2234) 1.8 RATIO BILIRUBIN, TOTAL (test code = 2207) 0.3 MG/DL ALKALINE PHOSPHATASE (test code = 2204) 128 U/L AST (test code = 2218) 17 U/L ALT (test code = 2219) 17 U/L Hebert CarrilloLIPID [id number] 00:00:00* Test Item Value Reference Range Interpretation Comme nts CHOLESTEROL (test code = 2210) 174 MG/DL TRIGLYCERIDES (test code = 2232) 195 MG/DL HDL CHOLESTEROL (test code = 2220) 56 MG/DL CALC LDL CHOL (test code = 2237) 89 MG/DL RISK RATIO LDL/HDL (test cod e = 2238) 1.59 RATIO Hebert CarrilloHEMOGLOBIN [id number] 00:00:00* Test Item Value Reference Range Interpretation Comme nts HEMOGLOBIN A1c (test code = 28253) 10.7 % Hebert CarrilloCOMPREHENSIVE METABOLIC [id number] 00:00:00* Test Item Value Reference Range Interpretation Comme nts GLUCOSE (test code = 2217) 260 MG/DL BUN (test code = 2208) 16 MG/DL CREATININE (test code = 2214) 0.78 MG/DL eGFR (2020 CKD-EPI) (test code = 10457) 109 ML/MIN/1.73 CALC BUN/CREAT (test code = 2235) 21 RATIO SODIUM (test code = 2231) 137 MEQ/L POTASSIUM (test code = 2228) 3.9 MEQ/L CHLORIDE (test code = 2215) 100 MEQ/L CARBON DIOXIDE (test code = 2206) 21 MEQ/L CALCIUM (test code = 2209) 9.8 MG/DL PROTEIN, TOTAL (test code = 2229) 7.1 G/DL ALBUMIN (test code = 2201) 4.6 G/DL CALC GLOBULIN (test code = 2240) 2.5 G/DL CALC A/G RATIO (test code = 2234) 1.8 RATIO BILIRUBIN, TOTAL (test code = 2207) 0.3 MG/DL ALKALINE PHOSPHATASE (test code = 2204) 128 U/L AST (test code = 2218) 17 U/L ALT (test code = 2219) 17 U/L Hebert CarrilloLIPID [id number] 00:00:00* Test Item Value Reference Range Interpretation Comme nts CHOLESTEROL (test code = 2210) 174 MG/DL TRIGLYCERIDES (test code = 2232) 195 MG/DL HDL CHOLESTEROL (test code = 2220) 56 MG/DL CALC LDL CHOL (test code = 2237) 89 MG/DL RISK RATIO LDL/HDL (test cod e = 2238) 1.59 RATIO Hebert Portillo AustinHEMOGLOBIN [id number] 00:00:00* Test Item Value Reference Range Interpretation Comme nts HEMOGLOBIN A1c (test code = 08546) 10.7 % Hebert Portillo AustinCOMPREHENSIVE METABOLIC [id number] 00:00:00* Test Item Value Reference Range Interpretation Comme nts GLUCOSE (test code = 2217) 260 MG/DL BUN (test code = 2208) 16 MG/DL CREATININE (test code = 2214) 0.78 MG/DL eGFR (2020 CKD-EPI) (test code = 40205) 109 ML/MIN/1.73 CALC BUN/CREAT (test code = 2235) 21 RATIO SODIUM (test code = 2231) 137 MEQ/L POTASSIUM (test code = 2228) 3.9 MEQ/L CHLORIDE (test code = 2215) 100 MEQ/L CARBON DIOXIDE (test code = 2206) 21 MEQ/L CALCIUM (test code = 2209) 9.8 MG/DL PROTEIN, TOTAL (test code = 2229) 7.1 G/DL ALBUMIN (test code = 2201) 4.6 G/DL CALC GLOBULIN (test code = 2240) 2.5 G/DL CALC A/G RATIO (test code = 2234) 1.8 RATIO BILIRUBIN, TOTAL (test code = 2207) 0.3 MG/DL ALKALINE PHOSPHATASE (test code = 2204) 128 U/L AST (test code = 2218) 17 U/L ALT (test code = 2219) 17 U/L Hebert Portillo AustinLIPID [id number] 00:00:00* Test Item Value Reference Range Interpretation Comme nts CHOLESTEROL (test code = 2210) 174 MG/DL TRIGLYCERIDES (test code = 2232) 195 MG/DL HDL CHOLESTEROL (test code = 2220) 56 MG/DL CALC LDL CHOL (test code = 2237) 89 MG/DL RISK RATIO LDL/HDL (test cod e = 2238) 1.59 RATIO Hebert Portillo AustinHEMOGLOBIN [id number] 00:00:00* Test Item Value Reference Range Interpretation Comme [facility] HEMOGLOBIN A1c (test code = 81862) 10.7 % Hebert Portillo AustinCOMPREHENSIVE METABOLIC [id number] 00:00:00* Test Item Value Reference Range Interpretation Comme nts GLUCOSE (test code = 2217) 260 MG/DL BUN (test code = 2208) 16 MG/DL CREATININE (test code = 2214) 0.78 MG/DL eGFR (2020 CKD-EPI) (test code = 83047) 109 ML/MIN/1.73 CALC BUN/CREAT (test code = 2235) 21 RATIO SODIUM (test code = 2231) 137 MEQ/L POTASSIUM (test code = 2228) 3.9 MEQ/L CHLORIDE (test code = 2215) 100 MEQ/L CARBON DIOXIDE (test code = 2206) 21 MEQ/L CALCIUM (test code = 2209) 9.8 MG/DL PROTEIN, TOTAL (test code = 2229) 7.1 G/DL ALBUMIN (test code = 2201) 4.6 G/DL CALC GLOBULIN (test code = 2240) 2.5 G/DL CALC A/G RATIO (test code = 2234) 1.8 RATIO BILIRUBIN, TOTAL (test code = 2207) 0.3 MG/DL ALKALINE PHOSPHATASE (test code = 2204) 128 U/L AST (test code = 2218) 17 U/L ALT (test code = 2219) 17 U/L Hebert Portillo GerardoLIPID [id number] 00:00:00* Test Item Value Reference Range Interpretation Comme nts CHOLESTEROL (test code = 2210) 174 MG/DL TRIGLYCERIDES (test code = 2232) 195 MG/DL HDL CHOLESTEROL (test code = 2220) 56 MG/DL CALC LDL CHOL (test code = 2237) 89 MG/DL RISK RATIO LDL/HDL (test cod e = 2238) 1.59 RATIO Hebert Portillo GerardoCOMPREHENSIVE METABOLIC [id number] 05:45:55* Test Item Value Reference Range Interpretation Comme nts GLUCOSE (test code = 2217) 341 MG/DL 70-99 H BUN (test code = 2208) 15 MG/DL 6-20 CREATININE (test code = 2214) 0.70 MG/DL 0.80-1.40 L eGFR (2020 CKD-EPI) (test code = 46654) 114 ML/MIN/1.73 >60 CALC BUN/CREAT (test code = 2235) 21 RATIO 6-28 SODIUM (test code = 2231) 136 MEQ/L 133-146 POTASSIUM (test code = 2227) 4.5 MEQ/L 3.5-5.4 CHLORIDE (test code = 2215) 100 MEQ/L 95-107 CARBON DIOXIDE (test code = 2205) 22 MEQ/L 19-31 CALCIUM (test code = 2208) 9.8 MG/DL 8.5-10.5 PROTEIN, TOTAL (test code = 2228) 7.4 G/DL 6.1-8.3 ALBUMIN (test code = 2200) 4.7 G/DL 3.5-5.2 CALC GLOBULIN (test code = 0) 2.7 G/DL 1.9-3.7 CALC A/G RATIO (test code = 2233) 1.7 RATIO 1.0-2.6 BILIRUBIN, TOTAL (test code = 2206) 0.2 MG/DL <=1.2 ALKALINE PHOSPHATASE (test code = 2203) 169 U/L 40-118 H AST (test code = 2217) 14 U/L 9-50 ALT (test code = 2218) 16 U/L 5-50 LIPID [id number] 05:45:55* Test Item Value Reference Range Interpretation Comme nts CHOLESTEROL (test code = 0) 270 MG/DL <200 H TRIGLYCERIDES (test code = 2) 371 MG/DL <150 H HDL CHOLESTEROL (test code = 2219) 54 MG/DL >39 CALC LDL CHOL (test code = 2236) 159 MG/DL <100 H NOTE: CALCULATED LDL IS BASED ON HAZEL-MARI METHOD WHICHINCLUDES ADJUSTABLE TRIGLYCERIDE:VLDL CHOLESTEROL RATIO.THIS FACTOR VARIES BY MEASURED TRIGLYCERIDE AND NON-HDLCHOLESTEROL CONCENTRATIONS WITH INCREASED CALCULATED LDL SEENIN HIGHER TRIGLYCERIDE OR LOWER NON-HDL SPECIMENS. FOR MOREINFORMATION, SEE CLIENT ANNOUNCEMENT AT [email or web address] RISK RATIO LDL/HDL (test code = 2238) 2.94 RATIO <3.55 UNLESS OTHERW ISE INDICATED, ALL TESTING PERFORMED AT [facility] [address] [place] [id number] CIGAR BANDER: RIKI MAYA M.D. [place] NUMBER [id number] [facility] [place]. [id number] HEMOGLOBIN [id number] 03:54:48* Test Item Value Reference Range Interpretation Comme nts HEMOGLOBIN A1c (test code = 91689) 11.2 % 4.2-5.6 H [employer] GUIDELINES FOR HGB A1C: [...] ETC.). CONSIDER ALTERNATE TESTING OR LABORATORY CONSULTATION. LIPID [id number] 00:00:00* Test Item Value Reference Range Interpretation Comme nts CHOLESTEROL (test code = 2210) 270 MG/DL TRIGLYCERIDES (test code = 2232) 371 MG/DL HDL CHOLESTEROL (test code = 2220) 54 MG/DL CALC LDL CHOL (test code = 2237) 159 MG/DL RISK RATIO LDL/HDL (test cod e = 2238) 2.94 RATIO Hebert CarrilloHEMOGLOBIN [id number] 00:00:00* Test Item Value Reference Range Interpretation Comme [facility] HEMOGLOBIN A1c (test code = 19804) 11.2 % Hebert CarrilloCOMPREHENSIVE METABOLIC [id number] 00:00:00* Test Item Value Reference Range Interpretation Comme nts GLUCOSE (test code = 2217) 341 MG/DL BUN (test code = 2208) 15 MG/DL CREATININE (test code = 2214) 0.70 MG/DL eGFR (2020 CKD-EPI) (test code = 42628) 114 ML/MIN/1.73 CALC BUN/CREAT (test code = 2235) 21 RATIO SODIUM (test code = 2231) 136 MEQ/L POTASSIUM (test code = 2228) 4.5 MEQ/L CHLORIDE (test code = 2215) 100 MEQ/L CARBON DIOXIDE (test code = 2206) 22 MEQ/L CALCIUM (test code = 2209) 9.8 MG/DL PROTEIN, TOTAL (test code = 2229) 7.4 G/DL ALBUMIN (test code = 2201) 4.7 G/DL CALC GLOBULIN (test code = 2240) 2.7 G/DL CALC A/G RATIO (test code = 2234) 1.7 RATIO BILIRUBIN, TOTAL (test code = 2207) 0.2 MG/DL ALKALINE PHOSPHATASE (test code = 2204) 169 U/L AST (test code = 2218) 14 U/L ALT (test code = 2219) 16 U/L Hebert CarrilloLIPID [id number] 00:00:00* Test Item Value Reference Range Interpretation Comme nts CHOLESTEROL (test code = 2210) 270 MG/DL TRIGLYCERIDES (test code = 2232) 371 MG/DL HDL CHOLESTEROL (test code = 2220) 54 MG/DL CALC LDL CHOL (test code = 2237) 159 MG/DL RISK RATIO LDL/HDL (test cod e = 2238) 2.94 RATIO Hebert CarrilloHEMOGLOBIN [id number] 00:00:00* Test Item Value Reference Range Interpretation Comme [facility] HEMOGLOBIN A1c (test code = 49013) 11.2 % Hebert CarrilloCOMPREHENSIVE METABOLIC [id number] 00:00:00* Test Item Value Reference Range Interpretation Comme nts GLUCOSE (test code = 2217) 341 MG/DL BUN (test code = 2208) 15 MG/DL CREATININE (test code = 2214) 0.70 MG/DL eGFR (2020 CKD-EPI) (test code = 30534) 114 ML/MIN/1.73 CALC BUN/CREAT (test code = 2235) 21 RATIO SODIUM (test code = 2231) 136 MEQ/L POTASSIUM (test code = 2228) 4.5 MEQ/L CHLORIDE (test code = 2215) 100 MEQ/L CARBON DIOXIDE (test code = 2206) 22 MEQ/L CALCIUM (test code = 2209) 9.8 MG/DL PROTEIN, TOTAL (test code = 2229) 7.4 G/DL ALBUMIN (test code = 2201) 4.7 G/DL CALC GLOBULIN (test code = 2240) 2.7 G/DL CALC A/G RATIO (test code = 2234) 1.7 RATIO BILIRUBIN, TOTAL (test code = 2207) 0.2 MG/DL ALKALINE PHOSPHATASE (test code = 2204) 169 U/L AST (test code = 2218) 14 U/L ALT (test code = 2219) 16 U/L Hebert Portillo AustinLIPID [id number] 00:00:00* Test Item Value Reference Range Interpretation Comme nts CHOLESTEROL (test code = 2210) 270 MG/DL TRIGLYCERIDES (test code = 2232) 371 MG/DL HDL CHOLESTEROL (test code = 2220) 54 MG/DL CALC LDL CHOL (test code = 2237) 159 MG/DL RISK RATIO LDL/HDL (test cod e = 2238) 2.94 RATIO Hebert CarrilloHEMOGLOBIN [id number] 00:00:00* Test Item Value Reference Range Interpretation Comme nts HEMOGLOBIN A1c (test code = 87401) 11.2 % Hebert CarrilloCOMPREHENSIVE METABOLIC [id number] 00:00:00* Test Item Value Reference Range Interpretation Comme nts GLUCOSE (test code = 2217) 341 MG/DL BUN (test code = 2208) 15 MG/DL CREATININE (test code = 2214) 0.70 MG/DL eGFR (2020 CKD-EPI) (test code = 86797) 114 ML/MIN/1.73 CALC BUN/CREAT (test code = 2235) 21 RATIO SODIUM (test code = 2231) 136 MEQ/L POTASSIUM (test code = 2228) 4.5 MEQ/L CHLORIDE (test code = 2215) 100 MEQ/L CARBON DIOXIDE (test code = 2206) 22 MEQ/L CALCIUM (test code = 2209) 9.8 MG/DL PROTEIN, TOTAL (test code = 2229) 7.4 G/DL ALBUMIN (test code = 2201) 4.7 G/DL CALC GLOBULIN (test code = 2240) 2.7 G/DL CALC A/G RATIO (test code = 2234) 1.7 RATIO BILIRUBIN, TOTAL (test code = 2207) 0.2 MG/DL ALKALINE PHOSPHATASE (test code = 2204) 169 U/L AST (test code = 2218) 14 U/L ALT (test code = 2219) 16 U/L Hebert Portillo AustinLIPID [id number] 00:00:00* Test Item Value Reference Range Interpretation Comme nts CHOLESTEROL (test code = 2210) 270 MG/DL TRIGLYCERIDES (test code = 2232) 371 MG/DL HDL CHOLESTEROL (test code = 2220) 54 MG/DL CALC LDL CHOL (test code = 2237) 159 MG/DL RISK RATIO LDL/HDL (test cod e = 2238) 2.94 RATIO Hebert CarrilloHEMOGLOBIN [id number] 00:00:00* Test Item Value Reference Range Interpretation Comme nts HEMOGLOBIN A1c (test code = 39743) 11.2 % Hebert CarrilloCOMPREHENSIVE METABOLIC [id number] 00:00:00* Test Item Value Reference Range Interpretation Comme nts GLUCOSE (test code = 2217) 341 MG/DL BUN (test code = 2208) 15 MG/DL CREATININE (test code = 2214) 0.70 MG/DL eGFR (2020 CKD-EPI) (test code = 46602) 114 ML/MIN/1.73 CALC BUN/CREAT (test code = 2235) 21 RATIO SODIUM (test code = 2231) 136 MEQ/L POTASSIUM (test code = 2228) 4.5 MEQ/L CHLORIDE (test code = 2215) 100 MEQ/L CARBON DIOXIDE (test code = 2206) 22 MEQ/L CALCIUM (test code = 2209) 9.8 MG/DL PROTEIN, TOTAL (test code = 2229) 7.4 G/DL ALBUMIN (test code = 2201) 4.7 G/DL CALC GLOBULIN (test code = 2240) 2.7 G/DL CALC A/G RATIO (test code = 2234) 1.7 RATIO BILIRUBIN, TOTAL (test code = 2207) 0.2 MG/DL ALKALINE PHOSPHATASE (test code = 2204) 169 U/L AST (test code = 2218) 14 U/L ALT (test code = 2219) 16 U/L Hebert CarrilloCBC W/AUTO [id number] 00:00:00* Test Item Value Reference Range Interpretation Comme nts WBC (test code = 1001) 8.0 K/UL RBC (test code = 1002) 5.32 M/UL HEMOGLOBIN (test code = 1003) 15.2 G/DL HEMATOCRIT (test code = 1004) 44.9 % MCV (test code = 1005) 84.4 fL MCH (test code = 1006) 28.6 PG MCHC (test code = 1007) 33.9 G/DL RDW (test code = 1038) 12.2 % NEUTROPHILS (test code = 1008) 57.9 % LYMPHOCYTES (test code = 1010) 32.9 % MONOCYTES (test code = 1011) 5.6 % EOSINOPHILS (test code = 1012) 2.5 % BASOPHILS (test code = 1013) 0.5 % IMMATURE GRANULOCYTES (test code = 1036) 0.6 % NUCLEATED RBCS (test code = 1065) 0.0 /100WBC'S PLATELET COUNT (test code = 1015) 304 K/UL ABSOLUTE NEUTROPHILS (test c ode = 1066) 4.63 K/UL ABSOLUTE LYMPHOCYTES (test c ode = 1067) 2.63 K/UL ABSOLUTE MONOCYTES (test cod e = 1068) 0.45 K/UL ABSOLUTE EOSINOPHILS (test c ode = 1040) 0.20 K/UL ABSOLUTE BASOPHILS (test cod e = 1069) 0.04 K/UL ABS IMMATURE GRANULOCYTES (t est code = 1020) 0.05 K/UL ABS NUCLEATED RBCS (test cod e = 88114) 0.00 K/UL Hebert CarrilloCOMPREHENSIVE METABOLIC [id number] 00:00:00* Test Item Value Reference Range Interpretation Comme nts GLUCOSE (test code = 2217) 187 MG/DL BUN (test code = 2208) 13 MG/DL CREATININE (test code = 2214) 0.55 MG/DL eGFR (2020 CKD-EPI) (test code = 61128) 123 ML/MIN/1.73 CALC BUN/CREAT (test code = 2235) 24 RATIO SODIUM (test code = 2231) 139 MEQ/L POTASSIUM (test code = 2228) 4.3 MEQ/L CHLORIDE (test code = 2215) 101 MEQ/L CARBON DIOXIDE (test code = 2206) 25 MEQ/L CALCIUM (test code = 2209) 9.5 MG/DL PROTEIN, TOTAL (test code = 2229) 7.0 G/DL ALBUMIN (test code = 2201) 4.3 G/DL CALC GLOBULIN (test code = 2240) 2.7 G/DL CALC A/G RATIO (test code = 2234) 1.6 RATIO BILIRUBIN, TOTAL (test code = 2207) 0.2 MG/DL ALKALINE PHOSPHATASE (test code = 2204) 128 U/L AST (test code = 2218) 16 U/L ALT (test code = 2219) 17 U/L Hebert CarrilloLIPID [id number] 00:00:00* Test Item Value Reference Range Interpretation Comme nts CHOLESTEROL (test code = 2210) 259 MG/DL TRIGLYCERIDES (test code = 2232) 280 MG/DL HDL CHOLESTEROL (test code = 2220) 55 MG/DL CALC LDL CHOL (test code = 2237) 158 MG/DL RISK RATIO LDL/HDL (test cod e = 2238) 2.87 RATIO Hebert Morales, THIRD [id number] 00:00:00* Test Item Value Reference Range Interpretation Comme nts TSH, THIRD GENERATION (test code = 2821) 1.040 UIU/ML Hebert CarrilloHEMOGLOBIN [id number] 00:00:00* Test Item Value Reference Range Interpretation Comme nts HEMOGLOBIN A1c (test code = 40672) 12.2 % Hebert CarrilloCBC W/AUTO [id number] 00:00:00* Test Item Value Reference Range Interpretation Comme nts WBC (test code = 1001) 8.0 K/UL RBC (test code = 1002) 5.32 M/UL HEMOGLOBIN (test code = 1003) 15.2 G/DL HEMATOCRIT (test code = 1004) 44.9 % MCV (test code = 1005) 84.4 fL MCH (test code = 1006) 28.6 PG MCHC (test code = 1007) 33.9 G/DL RDW (test code = 1038) 12.2 % NEUTROPHILS (test code = 1008) 57.9 % LYMPHOCYTES (test code = 1010) 32.9 % MONOCYTES (test code = 1011) 5.6 % EOSINOPHILS (test code = 1012) 2.5 % BASOPHILS (test code = 1013) 0.5 % IMMATURE GRANULOCYTES (test code = 1036) 0.6 % NUCLEATED RBCS (test code = 1065) 0.0 /100WBC'S PLATELET COUNT (test code = 1015) 304 K/UL ABSOLUTE NEUTROPHILS (test c ode = 1066) 4.63 K/UL ABSOLUTE LYMPHOCYTES (test c ode = 1067) 2.63 K/UL ABSOLUTE MONOCYTES (test cod e = 1068) 0.45 K/UL ABSOLUTE EOSINOPHILS (test c ode = 1040) 0.20 K/UL ABSOLUTE BASOPHILS (test cod e = 1069) 0.04 K/UL ABS IMMATURE GRANULOCYTES (t est code = 1020) 0.05 K/UL ABS NUCLEATED RBCS (test cod e = 19445) 0.00 K/UL Hebert CarrilloCOMPREHENSIVE METABOLIC [id number] 00:00:00* Test Item Value Reference Range Interpretation Comme nts GLUCOSE (test code = 2217) 187 MG/DL BUN (test code = 2208) 13 MG/DL CREATININE (test code = 2214) 0.55 MG/DL eGFR (2020 CKD-EPI) (test code = 90098) 123 ML/MIN/1.73 CALC BUN/CREAT (test code = 2235) 24 RATIO SODIUM (test code = 2231) 139 MEQ/L POTASSIUM (test code = 2228) 4.3 MEQ/L CHLORIDE (test code = 2215) 101 MEQ/L CARBON DIOXIDE (test code = 2206) 25 MEQ/L CALCIUM (test code = 2209) 9.5 MG/DL PROTEIN, TOTAL (test code = 2229) 7.0 G/DL ALBUMIN (test code = 2201) 4.3 G/DL CALC GLOBULIN (test code = 2240) 2.7 G/DL CALC A/G RATIO (test code = 2234) 1.6 RATIO BILIRUBIN, TOTAL (test code = 2207) 0.2 MG/DL ALKALINE PHOSPHATASE (test code = 2204) 128 U/L AST (test code = 2218) 16 U/L ALT (test code = 2219) 17 U/L Hebert CarrilloLIPID [id number] 00:00:00* Test Item Value Reference Range Interpretation Comme nts CHOLESTEROL (test code = 2210) 259 MG/DL TRIGLYCERIDES (test code = 2232) 280 MG/DL HDL CHOLESTEROL (test code = 2220) 55 MG/DL CALC LDL CHOL (test code = 2237) 158 MG/DL RISK RATIO LDL/HDL (test cod e = 2238) 2.87 RATIO Hebert CarrilloTSH, THIRD [id number] 00:00:00* Test Item Value Reference Range Interpretation Comme nts TSH, THIRD GENERATION (test code = 2821) 1.040 UIU/ML Hebert CarrilloHEMOGLOBIN [id number] 00:00:00* Test Item Value Reference Range Interpretation Comme nts HEMOGLOBIN A1c (test code = 78027) 12.2 % Hebert CarrilloCBC W/AUTO [id number] 00:00:00* Test Item Value Reference Range Interpretation Comme nts WBC (test code = 1001) 8.0 K/UL RBC (test code = 1002) 5.32 M/UL HEMOGLOBIN (test code = 1003) 15.2 G/DL HEMATOCRIT (test code = 1004) 44.9 % MCV (test code = 1005) 84.4 fL MCH (test code = 1006) 28.6 PG MCHC (test code = 1007) 33.9 G/DL RDW (test code = 1038) 12.2 % NEUTROPHILS (test code = 1008) 57.9 % LYMPHOCYTES (test code = 1010) 32.9 % MONOCYTES (test code = 1011) 5.6 % EOSINOPHILS (test code = 1012) 2.5 % BASOPHILS (test code = 1013) 0.5 % IMMATURE GRANULOCYTES (test code = 1036) 0.6 % NUCLEATED RBCS (test code = 1065) 0.0 /100WBC'S PLATELET COUNT (test code = 1015) 304 K/UL ABSOLUTE NEUTROPHILS (test c ode = 1066) 4.63 K/UL ABSOLUTE LYMPHOCYTES (test c ode = 1067) 2.63 K/UL ABSOLUTE MONOCYTES (test cod e = 1068) 0.45 K/UL ABSOLUTE EOSINOPHILS (test c ode = 1040) 0.20 K/UL ABSOLUTE BASOPHILS (test cod e = 1069) 0.04 K/UL ABS IMMATURE GRANULOCYTES (t est code = 1020) 0.05 K/UL ABS NUCLEATED RBCS (test cod e = 58463) 0.00 K/UL Hebert F GerardoCOMPREHENSIVE METABOLIC [id number] 00:00:00* Test Item Value Reference Range Interpretation Comme nts GLUCOSE (test code = 2217) 187 MG/DL BUN (test code = 2208) 13 MG/DL CREATININE (test code = 2214) 0.55 MG/DL eGFR (2020 CKD-EPI) (test code = 36984) 123 ML/MIN/1.73 CALC BUN/CREAT (test code = 2235) 24 RATIO SODIUM (test code = 2231) 139 MEQ/L POTASSIUM (test code = 2228) 4.3 MEQ/L CHLORIDE (test code = 2215) 101 MEQ/L CARBON DIOXIDE (test code = 2206) 25 MEQ/L CALCIUM (test code = 2209) 9.5 MG/DL PROTEIN, TOTAL (test code = 2229) 7.0 G/DL ALBUMIN (test code = 2201) 4.3 G/DL CALC GLOBULIN (test code = 2240) 2.7 G/DL CALC A/G RATIO (test code = 2234) 1.6 RATIO BILIRUBIN, TOTAL (test code = 2207) 0.2 MG/DL ALKALINE PHOSPHATASE (test code = 2204) 128 U/L AST (test code = 2218) 16 U/L ALT (test code = 2219) 17 U/L Hebert CarrilloLIPID [id number] 00:00:00* Test Item Value Reference Range Interpretation Comme nts CHOLESTEROL (test code = 2210) 259 MG/DL TRIGLYCERIDES (test code = 2232) 280 MG/DL HDL CHOLESTEROL (test code = 2220) 55 MG/DL CALC LDL CHOL (test code = 2237) 158 MG/DL RISK RATIO LDL/HDL (test cod e = 2238) 2.87 RATIO Hebert CarrilloTSH, THIRD [id number] 00:00:00* Test Item Value Reference Range Interpretation Comme nts TSH, THIRD GENERATION (test code = 2821) 1.040 UIU/ML Hebert CarrilloHEMOGLOBIN [id number] 00:00:00* Test Item Value Reference Range Interpretation Comme nts HEMOGLOBIN A1c (test code = 48224) 12.2 % Hebert CarrilloCBC W/AUTO [id number] 00:00:00* Test Item Value Reference Range Interpretation Comme nts WBC (test code = 1001) 8.0 K/UL RBC (test code = 1002) 5.32 M/UL HEMOGLOBIN (test code = 1003) 15.2 G/DL HEMATOCRIT (test code = 1004) 44.9 % MCV (test code = 1005) 84.4 fL MCH (test code = 1006) 28.6 PG MCHC (test code = 1007) 33.9 G/DL RDW (test code = 1038) 12.2 % NEUTROPHILS (test code = 1008) 57.9 % LYMPHOCYTES (test code = 1010) 32.9 % MONOCYTES (test code = 1011) 5.6 % EOSINOPHILS (test code = 1012) 2.5 % BASOPHILS (test code = 1013) 0.5 % IMMATURE GRANULOCYTES (test code = 1036) 0.6 % NUCLEATED RBCS (test code = 1065) 0.0 /100WBC'S PLATELET COUNT (test code = 1015) 304 K/UL ABSOLUTE NEUTROPHILS (test c ode = 1066) 4.63 K/UL ABSOLUTE LYMPHOCYTES (test c ode = 1067) 2.63 K/UL ABSOLUTE MONOCYTES (test cod e = 1068) 0.45 K/UL ABSOLUTE EOSINOPHILS (test c ode = 1040) 0.20 K/UL ABSOLUTE BASOPHILS (test cod e = 1069) 0.04 K/UL ABS IMMATURE GRANULOCYTES (t est code = 1020) 0.05 K/UL ABS NUCLEATED RBCS (test cod e = 53394) 0.00 K/UL Hebert Portillo GerardoCOMPREHENSIVE METABOLIC [id number] 00:00:00* Test Item Value Reference Range Interpretation Comme nts GLUCOSE (test code = 2217) 187 MG/DL BUN (test code = 2208) 13 MG/DL CREATININE (test code = 2214) 0.55 MG/DL eGFR (2020 CKD-EPI) (test code = 88228) 123 ML/MIN/1.73 CALC BUN/CREAT (test code = 2235) 24 RATIO SODIUM (test code = 2231) 139 MEQ/L POTASSIUM (test code = 2228) 4.3 MEQ/L CHLORIDE (test code = 2215) 101 MEQ/L CARBON DIOXIDE (test code = 2206) 25 MEQ/L CALCIUM (test code = 2209) 9.5 MG/DL PROTEIN, TOTAL (test code = 2229) 7.0 G/DL ALBUMIN (test code = 2201) 4.3 G/DL CALC GLOBULIN (test code = 2240) 2.7 G/DL CALC A/G RATIO (test code = 2234) 1.6 RATIO BILIRUBIN, TOTAL (test code = 2207) 0.2 MG/DL ALKALINE PHOSPHATASE (test code = 2204) 128 U/L AST (test code = 2218) 16 U/L ALT (test code = 2219) 17 U/L Hebert Portillo AustinLIPID [id number] 00:00:00* Test Item Value Reference Range Interpretation Comme nts CHOLESTEROL (test code = 2210) 259 MG/DL TRIGLYCERIDES (test code = 2232) 280 MG/DL HDL CHOLESTEROL (test code = 2220) 55 MG/DL CALC LDL CHOL (test code = 2237) 158 MG/DL RISK RATIO LDL/HDL (test cod e = 2238) 2.87 RATIO Hebert FranciscoH, THIRD [id number] 00:00:00* Test Item Value Reference Range Interpretation Comme alden TSH, THIRD GENERATION (test code = 2821) 1.040 UIU/ML Hebert CarrilloHEMOGLOBIN [id number] 00:00:00* Test Item Value Reference Range Interpretation Comme alden HEMOGLOBIN A1c (test code = 90867) 12.2 % Hebert CarrilloPOCT GLUCOSE (AUTOMATED)2021-08-02 18:03:13* Test Item Value Reference Range Interpretation Comme alden POCT GLU (test code = 4178237452) 231 mg/dL 70-110 H Lab Interpretation (test cod e = 54306-6) [facility]normal [facility] 21:26:00* Test Item Value Reference Range Interpretation Comme alden APPEARANCE (test code = 6636500996) Hazy Clear A COLOR (test code = 7192217499) Yellow Yellow PH (test code = 8485860109) 4.8-8.0 SP GRAVITY (test code = 2995761672) 1.003-1.030 GLU U QUAL (test code = 6066796808) 500 mg/dL Normal A BLOOD (test code = 0504288743) Negative Negative KETONES (test code = 7247251285) Negative Negative PROTEIN (test code = 2887-8) 30 mg/dL Negative A UROBILIN (test code = 6077494970) 2.0 mg/dL Normal A BILIRUBIN (test code = 0515385128) Negative Negative NITRITE (test code = 2102612684) Negative Negative LEUK VITO (test code = 9006573525) Negative Negative RBC/HPF (test code = 6468235045) See_Comment [[employer]] The system which generated this result transmitted reference range: 0 - 3 HPF. The reference range was not used to interpret this result as normal/abnormal. WBC/HPF (test code = 7911053235) See_Comment [[employer]] The system which generated this result transmitted reference range: 0 - 5 HPF. The reference range was not used to interpret this result as normal/abnormal. BACTERIA (test code = 7780754814) Few Negative A MUCOUS (test code = 3939967711) Marked Negative LPF A SQ EPITH (test code = 9291323695) <1 HPF HYAL CAST (test code = 4473153983) See_Comment H [[employer]ated [employer] Engineeringa ge] The system which generated this result transmitted reference range: <=2 LPF. The reference range was not used to interpret this result as normal/abnormal. Lab Interpretation (test code = 12138-1) Abnormal [facility]. METABOLIC PANEL (13468)2020-03-31 19:31:00* Test Item Value Reference Range Interpretation Comme nts NA (test code = 6101975552) 136 mmol/L 135-145 K (test code = 1886901576) 3.9 mmol/L 3.5-5 CL (test code = 0349081893) 100 mmol/L 98-108 CO2 TOTAL (test code = 2368049689) 23 mmol/L 23-31 AGAP (test code = 0281719949) 2-16 BUN (test code = 4845988928) 16 mg/dL 7-23 GLUCOSE (test code = 7049234139) 297 mg/dL 70-110 H CREATININE (test code = 5654530270) 0.69 mg/dL 0.6-1.25 TOTAL BILI (test code = 6963079254) 0.9 mg/dL 0.1-1.1 CALCIUM (test code = 0752051506) 9.3 mg/dL 8.6-10.6 T PROTEIN (test code = 4057607229) 8.3 g/dL 6.3-8.2 H ALBUMIN (test code = 0481200051) 4.8 g/dL 3.5-5 ALK PHOS (test code = 8022397374) 83 U/L 34-122 ALTv (test code = 1742-6) 20 U/L 5-50 AST(SGOT) (test code = 6495793953) 37 U/L 13-40 eGFR Calculation (Non-) (test code = 9038235199) mL/min/1.73m2 eGFR Calculation () (test code = 7000136475) mL/min/1.73m2 DOREEN (test code = DOREEN) Slight [...] imaging tests). Lab Interpretation (test code = 50084-6) [facility]normal [facility]:25:00* Test Item Value Reference Range Interpretation Comme nts MAGNESIUM (test code = 7749715440) 1.9 mg/dL 1.7-2.4 Lab Interpretation (test cod e = 33705-1) Normal [facility] [id number] 19:02:00* Test Item Value Reference Range Interpretation Comme nts WBC (test code = 6690-2) See_Comment [Automated [facility]] The system which generated this result transmitted reference range: 4.20 - 10.70 10*3/?L. The reference range was not used to interpret this result as normal/abnormal. RBC (test code = 789-8) See_Comment [Automated [facility]] The system which generated this result transmitted [...] 34.1 g/dL 31.2-35 RDW-SD (test code = 83825-0) 39.1 fL 38.5-51.6 RDW-CV (test code = 788-0) 12.4 % 12.1-15.4 PLT (test code = 777-3) See_Comment [Automated messa ge] The system which generated this result transmitted reference range: 150 - 328 10*3/?L. The reference range was not used to interpret this result as normal/abnormal. MPV (test code = 89008-9) 10.7 fL 9.8-13 NRBC/100 WBC (test code = 6720085192) See_Comment [Automated me ssage] The system which generated this result transmitted reference range: 0.0 - 10.0 /100 WBCs. The reference range was not used to interpret this result as normal/abnormal. NRBC x10^3 (test code = 5273652739) <0.01 See_Comment [Automated me ssage] The system which generated this result transmitted reference range: 10*3/?L. The reference range was not used to interpret this result as normal/abnormal. GRAN MAT (NEUT) % (test code = 770-8) 60.8 % IMM GRAN % (test code = 9307874607) 0.40 % LYMPH % (test code = 736-9) 29.6 % MONO % (test code = 5905-5) 6.5 % EOS % (test code = 713-8) 2.3 % BASO % (test code = 706-2) 0.4 % GRAN MAT x10^3(ANC) (test code = 0414223688) 4.95 10*3/uL 1.99-6.95 IMM GRAN x10^3 (test code = 4227570524) 0.03 10*3/uL 0-0.06 LYMPH x10^3 (test code = 731-0) 2.41 10*3/uL 1.09-3.23 MONO x10^3 (test code = 742-7) 0.53 10*3/uL 0.36-1.02 EOS x10^3 (test code = 711-2) 0.19 10*3/uL 0.06-0.53 BASO x10^3 (test code = 704-7) 0.03 10*3/uL 0.01-0.09 [facility]"
[2024-08-26] MEDS ORDERED: IBUPROFEN 400 MG TAB ONE (20:36)
[2024-08-26 21:02] LABS: SARS-CoV-2 Antigen CONTROL BLUE LINE VIS/BG OK; SARS-CoV-2 Antigen Rapid Res Negative (Negative)
--- NOTE | 2024-08-26 21:49 | RAD REPORT ---
Procedure: Chest Single View HISTORY: Cough COMPARISON: September 2023 FINDINGS: The lungs appear clear of acute infiltrate. No significant pleural effusion noted. The heart is normal size. IMPRESSION: No acute abnormality is displayed.
--- NOTE | 2024-08-26 22:32 | ER ---
Nurse's Notes [facility] Name: Jaden Luna Age: 48 yrs Sex: Male : 1975 Arrival Date: 08/26/2024 Time: 20:10 Bed 6 Private MD: Diagnosis: Influenza due to identified novel influenza A virus with other manifestations Presentation: 08/26 20:29 Chief complaint: Patient states: HEADACHE, BODY ACHES, AND A HORRIBLE COUGH. ha1 Coronavirus screen: Vaccine status: Patient reports being unvaccinated. Ebola Screen: No symptoms or risks identified at this time. Initial Sepsis Screen: Does the patient meet any 2 criteria? No. Patient's initial sepsis screen is negative. Does the patient have a suspected source of infection? No. Patient's initial sepsis screen is negative. Risk Assessment: Do you want to hurt yourself or someone else? Patient reports no desire to harm self or others. Onset of symptoms was August 26, 2024. 20:29 Method Of Arrival: Ambulatory 1 20:29 Acuity: JAMES 4 ha1 Triage Assessment: 20:23 Headache History: The patient has had previous headaches and this one is similar to 1 previous episodes. General: Appears uncomfortable, Behavior is calm, cooperative. Pain: Complains of pain in HEADACHE WHEN COUGHING Pain currently is 9 out of 10 on a pain scale. Quality of pain is described as aching, Pain began gradually, Also complains of no other associated symptoms. Neuro: Level of Consciousness is awake, alert, obeys commands, Oriented to person, place, time, situation, Moves all extremities. Reports headache. Cardiovascular: Capillary refill < 3 seconds Patient's skin is warm and dry. Respiratory: Airway is patent Respiratory effort is even, unlabored, Respiratory pattern is regular, symmetrical. Historical: - Allergies: 20:34 Aspirin; ha1 - Home Meds: 23:00 metformin 1 Oral tab 1 tab 2 times per day [Active]; ay - PMHx: 20:34 Diabetes - NIDDM; High Cholesterol; Hypertension; ha1 - Immunization history:: Adult Immunizations up to date. - Infectious Disease History:: Denies. - Social history:: Smoking status: Reported history of juuling and/or vaping. Screenin:53 [facility] ED Fall Risk Assessment (Adult) History of falling in the last 3 months, ay including since admission No falls in past 3 months (0 pts) Confusion or Disorientation No (0 pts) Intoxicated or Sedated No (0 pts) Impaired Gait No (0 pts) Mobility Assist Device Used No (0 pt) Altered Elimination No (0 pt) Score/Fall Risk Level 0 - 2 = Low Risk Oriented to surroundings, Maintained a safe environment, Educated pt \T\ family on fall prevention, incl call for assistance when getting out of bed. Abuse screen: Denies threats or abuse. Denies injuries from another. Nutritional screening: No deficits noted. Tuberculosis screening: No symptoms or risk factors identified. Assessment: 20:53 General: Appears in no apparent distress. uncomfortable, Behavior is calm, cooperative. ay Pain: Complains of pain in headache Pain currently is 7 out of 10 on a pain scale. Neuro: Level of Consciousness is awake, alert, obeys commands, Oriented to person, place, time, situation, Speech is normal. Cardiovascular: Capillary refill < 3 seconds. Respiratory: Airway is patent Respiratory effort is even, unlabored, Respiratory pattern is regular, symmetrical. GI: Abdomen is obese, Abd is soft and non tender X 4 quads. : No signs and/or symptoms were reported regarding the genitourinary system. EENT: Nares are clear Throat is clear. Derm: No signs and/or symptoms reported regarding the dermatologic system. Musculoskeletal: No signs and/or symptoms reported regarding the musculoskeletal system. 21:48 Reassessment: Patient appears in no apparent distress at this time. Patient is alert, ay oriented x 3, equal unlabored respirations, skin warm/dry/pink. Patient states feeling better. Vital Signs: 20:29 BP 128 / 86; Pulse 119; Resp 20 S; Temp 100.6(O); Pulse Ox 96% on R/A; Weight 108.86 ha1 kg; Height 5 ft. 7 in. ; 22:56 BP 106 / 94; Pulse 111; Resp 20; Pulse Ox 94% on R/A; ay 20:29 Body Mass Index 37.59 (108.86 kg, 170.18 cm) ha1 Walter Coma Score: 20:53 Eye Response: spontaneous(4). Motor Response: obeys commands(6). Verbal Response: ay oriented(5). Total: 15. ED Course: 20:14 Patient arrived in ED. ra3 20:24 Lawrence Tang PA is PHCP. cp 20:24 Khadar Rodriguez MD is Attending Physician. cp 20:34 Triage completed. ha1 20:34 Wan Berger, RN is Primary Nurse. ay 20:53 Patient has correct armband on for positive identification. Bed in low position. Call ay light in reach. Side rails up X2. Provided Education on: plan of care. 21:19 XRAY Chest (1 view) In Process Unspecified. EDMS 22:59 No provider procedures requiring assistance completed. Patient did not have IV access ay during this emergency room visit. 23:01 Arm band placed on left wrist. ay Administered Medications: 20:39 Drug: Ibuprofen PO 800 mg PO once Route: PO; ay 23:00 Follow up: Response: No adverse reaction ay 20:46 Not Given (Other Intervention Used): [id number] mg PO once ay 22:56 Drug: Oseltamivir PO 75 mg PO once Route: PO; ay 23:00 Follow up: Response: No adverse reaction ay Medication: 20:53 VIS not applicable for this client. ay Outcome: 22:31 Discharge ordered by MD. cp 22:59 Discharged to home ambulatory, ay 22:59 Condition: stable 22:59 Discharge instructions given to patient, Instructed on discharge instructions, follow up and referral plans. medication usage, Demonstrated understanding of instructions, follow-up care, medications, Prescriptions given X 2, 23:01 Patient left the ED. ay Signatures: Dispatcher [employer] EDMO Lawrence Tang PA PA cp Ayala, Heidy, RN RN 1 Renetta Santiago ra3 Wan Berger RN RN ay
--- NOTE | 2024-08-26 22:32 | EDPHYS ---
Physician Documentation [facility] Name: Jaden Luna Age: 48 yrs Sex: Male : 1975 Arrival Date: 08/26/2024 Time: 20:10 Bed 6 Private MD: ED Physician Khadar Rodriguez HPI: 08/26 20:35 This 48 yrs old Male presents to ER via Ambulatory with complaints of cp Headache, Cold Symptoms. 20:35 The patient complains of pain to the top of head and forehead. The patient describes cp the headache as aching. 20:35 Onset: The symptoms/episode began/occurred yesterday. Associated signs and symptoms: cp Pertinent positives: fever, cough, body aches, Pertinent negatives: altered mental status, neck stiffness, vomiting. Severity of symptoms: in the emergency department the pain is unchanged, despite home interventions. Historical: - Allergies: 20:34 Aspirin; ha1 - Home Meds: 23:00 metformin 1 Oral tab 1 tab 2 times per day [Active]; ay - PMHx: 20:34 Diabetes - NIDDM; High Cholesterol; Hypertension; ha1 - Immunization history:: Adult Immunizations up to date. - Infectious Disease History:: Denies. - Social history:: Smoking status: Reported history of juuling and/or vaping. ROS: 20:40 Eyes: Negative for injury, pain, redness, and discharge, cp 20:40 Constitutional: Positive for body aches, fever, 20:40 Respiratory: Positive for cough, "sounds productive", 20:40 Abdomen/GI: Negative for abdominal pain, vomiting, diarrhea, constipation, 20:40 Neuro: Positive for headache, Negative for altered mental status, 20:40 All other systems are negative, Exam: 20:45 Constitutional: The patient appears in no acute distress, alert, awake, cp non-diaphoretic, non-toxic, well developed, well nourished, 20:45 Head/Face: Normocephalic, atraumatic. cp 20:45 Eyes: Periorbital structures: appear normal, Conjunctiva: normal, no exudate, no injection, Sclera: no appreciated abnormality, Lids and lashes: appear normal, bilaterally, 20:45 ENT: External ear(s): are unremarkable, Nose: is normal, Mouth: Lips: moist, Oral mucosa: moist, Posterior pharynx: Airway: no evidence of obstruction, patent, Tonsils: no enlargement, no exudate, erythema, that is mild, exudate, is not appreciated, 20:45 Neck: ROM/movement: is normal, is supple, no meningismus, no nuchal rigidity, 20:45 Chest/axilla: Inspection: normal, 20:45 Cardiovascular: Rate: tachycardic, 20:45 Respiratory: the patient does not display signs of respiratory distress, Respirations: normal, no use of accessory muscles, no retractions, labored breathing, is not present, Breath sounds: bronchial sounds, that are mild, are heard diffusely, decreased breath sounds, are not appreciated, stridor, is not appreciated, 20:45 Abdomen/GI: Inspection: abdomen appears normal, Palpation: abdomen is soft and non-tender, in all quadrants, 20:45 Neuro: Orientation: to person, place \\T\\ time. Mentation: is normal, Motor: moves all fours, strength is normal, Vital Signs: 20:29 BP 128 / 86; Pulse 119; Resp 20 S; Temp 100.6(O); Pulse Ox 96% on R/A; Weight 108.86 ha1 kg; Height 5 ft. 7 in. ; 22:56 BP 106 / 94; Pulse 111; Resp 20; Pulse Ox 94% on R/A; ay 20:29 Body Mass Index 37.59 (108.86 kg, 170.18 cm) ha1 Walter Coma Score: 20:53 Eye Response: spontaneous(4). Motor Response: obeys commands(6). Verbal Response: ay oriented(5). Total: 15. MDM: 20:24 Medical Screening Exam initiated 22:30 Data reviewed: vital signs, nurses notes, lab test result(s), radiologic studies, plain cp films, and as a result, I will discharge patient. 22:30 I considered the following discharge prescriptions or medication management in the emergency department Medications were administered in the Emergency Department. See MAR. Care significantly affected by the following chronic conditions: Diabetes, Hypertension. Response to treatment: the patient's symptoms have mildly improved after treatment, and as a result, I will discharge patient. 08/26 20:30 Order name: Flu; Complete Time: 21:34 bm8 08/26 21:34 Interpretation: Reviewed. 08/26 20:30 Order name: SARS RAPID; Complete Time: 21:34 bm8 08/26 20:30 Order name: RSV; Complete Time: 21:34 bm8 08/26 20:39 Order name: Strep cp 08/26 22:30 Order name: Throat Culture EDMS 08/26 20:39 Order name: XRAY Chest (1 view); Complete Time: 21:51 cp 08/26 21:51 Interpretation: Report review. cp Administered Medications: 20:39 Drug: Ibuprofen PO 800 mg PO once Route: PO; ay 23:00 Follow up: Response: No adverse reaction ay 20:46 Not Given (Other Intervention Used): [id number] mg PO once ay 22:56 Drug: Oseltamivir PO 75 mg PO once Route: PO; ay 23:00 Follow up: Response: No adverse reaction ay Disposition: 08/27 01:51 Co-signature as Attending Physician, Khadar Rodriguez MD I reviewed the patient's care rt provided by the Advanced Practice Provider and agree with the diagnosis and treatment plan. Disposition Summary: 08/26/24 22:31 Discharge Ordered Notes: Location: Home cp Problem: new cp Symptoms: have improved cp Condition: Stable cp Diagnosis - Influenza due to identified novel influenza A virus with other manifestations cp Followup: cp - With: Private Physician - When: 2 - 3 days - Reason: Worsening of condition Discharge Instructions: - Discharge Summary Sheet cp - Influenza, Adult cp Forms: - Medication Reconciliation Form cp - Antibiotic Education cp - Prescription Opioid Use cp - Patient Portal Instructions cp - Leadership Thank You Letter cp - Work release form rv1 Prescriptions: - Bromfed DM 2-30-10 mg/5 mL Oral syrup - administer 10 milliliter ORAL route every 6 hours as needed for cold symptoms; cp 240 milliliter; Refills: 0, Product Selection Permitted - Tamiflu 75 mg Oral capsule - take 1 tablet ORAL route every 12 hours for 5 days; 10 tablet; Refills: 0, cp Product Selection Permitted Signatures: Dispatcher [employer] EDLA Lawrence Tang PA PA cp Ayala, Heidy RN RN ha1 Khadar Rodriguez MD MD rt Wan Berger RN RN ay Corrections: (The following items were deleted from the chart) 08/26 20:40 20:40 Group A Streptococcus Rapid Sc+BA.LAB.BRZ ordered. EDMS EDMS 20:40 20:40 Chest Single View+RAD.RAD.BRZ ordered. EDMS EDMS 08/27 16:21 16:20 Constitutional: Positive for body aches, fever, cp cp 16:21 16:20 Respiratory: Positive for cough, "sounds productive", cp cp 16:21 16:20 Abdomen/GI: Negative for abdominal pain, vomiting, diarrhea, constipation, cp cp 16:21 16:20 Neuro: Positive for headache, Negative for altered mental status, cp cp 16:21 16:20 Eyes: Negative for injury, pain, redness, and discharge, cp cp 16:21 16:20 All other systems are negative, cp cp
[2024-08-26] MEDS ORDERED: OSELTAMIVIR 75 MG CAP PO ONE (22:38)
[2024-08-26 23:09] VITALS: TEMP 100.6
[2024-08-26 23:11] VITALS: BP 106/94; O2SAT 94
== END 2024-08-26 23:01 | disposition home or self-care (01) ==
LOC: ER 20:10
DX: J10.1 Influenza due to other identified influenza virus with other respiratory manifestations (principal); Z11.52 Encounter for screening for COVID-19; E11.9 Type 2 diabetes mellitus without complications; I10 Essential (primary) hypertension
CPT/HCPCS: 36415; 71045; 87070; 87081; 87804; 87807; 87811; 99283

== ENCOUNTER 2024-09-19 09:14 | Inpatient (IN) | payer OTHER ==
--- OUTSIDE RECORDS SUMMARY | 2024-09-19 09:18 | XMS REPORT | Continuity of Care Document ---
Author Name Unknown Address [address] [facility] [address] [place] [address] [facility] thconnect Address [address] [facility] [address] [place] [address] Care Team Providers Care Ginger Farmer Name Role Phone Athena Anderson BOLDEN Primary Care Physician Zulma Bejarano MD Attending Clinician [phone] Parish Deleon Attending Clinician [phone] Oneyda Fletcher Attending Clinician [phone] FRANCHESKA ALLEN Attending Clinician Unavailable Francheska Allen MD Attending Clinician [phone] David Ernst Attending Clinician [phone] David MOREAU Attending Clinician Unavailable Payers Payer Name Policy Type Policy Number Effective Date Expirati on Date Source [facility] [id number] 2022 00:00:00 Problems Condition Name Condition Details Condition Category Status Onset Date Resolution Date Last Treatment Date Treating Clinician Comments Source Closed displaced transverse fracture of shaft of right femur Closed displaced transverse fracture of shaft of right femur Disease Active 2-13 00:00: 00 [facility] Closed displaced intertroch anteric fracture of right femur Closed displaced intertroch anteric fracture of right femur Disease Active 10-04 00:00: 00 [facility] Allergies, Adverse Reactions, Alerts Allergy Name Allergy Type Status Severity Reaction(s) Onset Date Inactive Date Treating Clinician Comments Source NO KNOWN ALLERGIE S Drug Class Active [facility] Social History Social Habit Start Date Stop Date Quantity Comments Source Sexual orientation [facility] Exposure to SARS-CoV-2 (event) 2023-01-08 00:00:00 2023-01-18 10:46:00 Not sure [facility] Sex assigned at 1975 00:00:00 1975 00:00:00 [facility] Smoking Status Start Date Stop Date Source Tobacco smoking consumption unknown [facility] Medications Ordered Medication Name Filled Medication [...] 1mg Hebert Carrillo metformin 1,000 mg tablet 2024-0 5-15 00:00: 00 Yes 1mg Hebert Carrillo glyburide [...] Hebert Carrillo ergocalcife rol (Drisdol) 1.25 MG (04121 UT) capsule 2022-08 00:00: 00 08-28 05:59 :00 No [id number] Take 1 capsule (50,000 Units total) by mouth 1 (one) time per week. [facility] ergocalcife rol (Drisdol) 1.25 MG (41177 UT) capsule 03-22 00:00: 00 05-22 04:59 :00 No [id number] Take 1 capsule (50,000 Units total) by mouth 1 (one) time per week. [facility] INJECT 23 UNITS SUBCUTANEOU SLY EVERY 12 [...] 00:00 :00 No Hebert Carrillo Dose Unknown 2022-1 2-14 00:00: 00 01-03 00:00 :00 No Hebert Carrillo Dose Unknown 2021-08 00:00: 00 01-03 00:00 :00 No Hebert Carrillo TAKE 1 TABLET BY MOUTH EVERY 8 HOURS NEEDED FOR PAIN (SCALE 4-6) 2021-08 00:00: 00 No TAKE 1 TABLET BY MOUTH EVERY 8 HOURS NEEDED FOR PAIN (SCALE 4-6) 2021-08 00:00: 00 Yes Hebert Carrillo ibuprofen 600 mg tablet 2020-08 00:00: 00 Yes [id number] 600mg Take 1 tablet by mouth every 8 (eight) hours as needed for Pain (scale 4-6). [facility] clindamycin 300 mg capsule 2020-08 00:00: 00 08-13 05:59 :00 No [id number] 300mg Take 1 capsule by mouth 4 (four) times daily for 10 days. 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) 2021-08-21 00:00:00 Completed [facility] COVID-19 Moderna Primary 12+yr (red) 2021-08-21 00:00:00 Completed [facility] COVID-19 Moderna Primary 12+yr (red) 2021-08-21 00:00:00 Completed [facility] COVID-19 Moderna Primary 12+yr (red) Unknown Completed [facility] COVID-19 Moderna Primary 12+yr (red) [facility] V[facility] Sign[facility] Vital Name Observation Time Observation Value Comments S heidy Systolic blood pressure 2021-08-02 18:20:00 133 mm[Hg] [facility] Diastolic blood pressure 2021-08-02 18:20:00 78 mm[Hg] [facility] Heart rate 2021-08-02 18:20:00 97 /min Un[facility] Body temperature 2021-08-02 18:20:00 37.22 Irina [facility] Respiratory rate 2021-08-02 18:20:00 18 /min [facility] Oxygen saturation in Arterial blood by Pulse oximetry 2021-08-02 18:20:00 95 /min [facility] Body height 2021-08-02 17:48:00 170.2 cm [facility] Body weight 2021-08-02 17:48:00 108.41 kg [facility] BMI 2021-08-02 17:48:00 37.43 kg/m2 [facility] Systolic blood pressure 2020-03-31 20:15:00 130 mm[Hg] [facility] Diastolic blood pressure 2020-03-31 20:15:00 78 mm[Hg] [facility] Heart rate 2020-03-31 20:15:00 93 /min [facility] Respiratory rate 2020-03-31 20:15:00 18 /min [facility] Oxygen saturation in Arterial blood by Pulse oximetry 2020-03-31 20:15:00 96 /min [facility] Body temperature 2020-03-31 17:52:00 36.5 Irina [facility] Body weight 2020-03-31 17:52:00 108.863 kg [facility] Systolic blood pressure 2020-03-31 20:15:00 130 mm[Hg] [facility] Diastolic blood pressure 2020-03-31 20:15:00 78 mm[Hg] [facility] Heart rate 2020-03-31 20:15:00 93 /min [facility] Respiratory rate 2020-03-31 20:15:00 18 /min [facility] Oxygen saturation in Arterial blood by Pulse oximetry 2020-03-31 20:15:00 96 /min [facility] Body temperature 2020-03-31 17:52:00 36.5 Irina [facility] Body weight 2020-03-31 17:52:00 108.863 kg [facility] BP Systolic 2024-06-28 17:00:00 126 mm[Hg] Step [...] POCT GLUCOSE (AUTOMATED) 2021-08-02 17:59:00 Francheska Allen [facility] CONSENT/REFUSAL FOR DIAGNOSIS AND TREATMENT 2021-08-02 17:35:20 Doctor Unassigned, [place] [facility] NOTICE OF PRIVACY PRACTICES 2021-08-02 17:35:03 Doctor Unassigned, [place] [facility] URINALYSIS 2020-03-31 20:32:00 David Moreau [facility] MAGNESIUM 2020-03-31 18:40:00 David Moreau [facility] COMP. METABOLIC PANEL (01279) 2020-03-31 18:40:00 David Moreau [facility] CBC WITH DIFF 2020-03-31 18:40:00 David Moreau [facility] EKG-12 LEAD 2020-03-31 18:03:18 David Moreau [facility] Plan of Care Planned Activity Planned Date Details Comments Source Goal Plan of Care Note [code = 31847-0] Goal Plan of Care Note [code = 36887-0] Goal Plan of Care Note [code = 76992-5] Goal Plan of Care Note [code = 79145-7] Goal Plan of Care Note [code = 54264-4] Goal Plan of Care Note [code = 69248-9] Goal Plan of Care Note [code = 56510-2] Encounters Start Date/Time End Date/Time Encounter Type Admission Type Attending [facility] Care Facility Care Department Encounter ID Source 2024-02-10 12:40:[address] [facility] [id number] [facility] 2024-01-20 07:59:[address] [facility] [id number] [facility] 2023-10-25 12:35:[address] [facility] [id number] [facility] 2023-02-17 07:28:[address] [facility] [id number] [facility] 2023-01-13 08:06:[address] [facility] [id number] [facility] 2023-01-07 07:37:[address] [facility] [id number] [facility] 2023-01-06 16:25:[address] [facility] [id number] [facility] 2022-12-20 14:37:[address] [facility] [id number] [facility] 2022-12-07 07:46:[address] [facility] [id number] [facility] 2022-10-08 14:34:[address] [facility] [id number] [facility] 2022-10-05 11:18:[address] [facility] [id number] [facility] 2022-09-27 11:20:[address] [facility] [id number] [facility] 2024-07-03 08:41:03 2024-07-03 08:41:03 Outpatient [facility] S[facility] [id number] Hebert Carrillo 2024-06-28 16:47:48 2024-06-28 16:47:48 Outpatient [facility] [id number] [id number] Hebert Portillo Ger[place] 2024-06-28 00:00:00 2024-06-28 00:00:00 Outpatient Visit [facility] [id number] Hebert Carrillo 2024-03-29 16:56:12 2024-03-29 16:56:12 Outpatient [facility]FA SFA [id number] Hebert Carrillo 2024-03-29 00:00:00 2024-03-29 00:00:00 Outpatient Visit [facility] [id number] Hebert Carrillo 2024-01-30 16:38:39 2024-01-30 16:38:39 Outpatient SFA SFA [id number] Hebert Carrillo 2024-01-30 00:00:00 2024-01-30 00:00:00 Outpatient Visit [facility] [id number] Hebert Carrillo 2024-01-09 16:00:39 2024-01-09 16:00:39 Outpatient SFA SFA [id number] Hebert Portillo Gerardo 2024-01-04 16:25:56 2024-01-04 16:25:56 Outpatient SFA SFA [id number] Hebert Carrillo 2024-01-04 00:00:00 2024-01-04 00:00:00 Outpatient Visit SFA [id number] Hebert Portillo Ger[place] 2023-10-25 12:30:00 2023-10-25 13:03:11 Office Visit Zulma Bejarano [facility] [address] [id number] [id number] [facility] 2023-10-25 12:30:00 2023-10-25 12:30:[address] [facility] [id number] [facility] 2023-09-13 12:45:00 2023-09-13 12:45:[address] [facility] [id number] [facility] 2023-09-06 13:15:00 2023-09-06 13:15:00 Outpatient ZULMA BEJARANO [facility] [id number] [facility] 2023-09-06 13:15:00 2023-09-06 13:15:[address] [facility] [id number] [facility] 2023-08-11 15:14:32 2023-08-11 15:14:32 Outpatient SFA SFA [id number] Hebert Portillo [place] 2023-08-03 17:08:10 2023-08-03 17:08:10 Outpatient SFA SFA [id number] Hebert Portillo [place] 2023-06-28 10:00:00 2023-06-28 10:34:40 Office Visit OlafCaity crawfordamarjit [facility] [address] 1.2.840.114 [id number] [id number] [facility] 2023-06-28 10:00:00 2023-06-28 10:34:[address] [facility] [id number] [facility] 2023-03-22 11:30:00 2023-03-22 11:30:[address] [facility] [id number] [facility] 2023-03-22 11:30:00 2023-03-22 11:30:00 Office Visit Parish Babin [facility] [address] [id number] [id number] [id number] [facility] 2023-01-18 11:30:00 2023-01-18 11:30:00 Office Visit Zulma Bejarano [facility] [address] 1.2.840.114 350.1.13.58 [id number] [id number] [facility] 2023-01-18 11:30:00 2023-01-18 11:22:[address] [facility] [id number] [facility] 2022-12-07 11:30:00 2022-12-07 11:43:[address] [facility] [id number] [facility] 2022-12-07 11:30:00 2022-12-07 11:43:11 Office Visit Oneyda Quarles [facility] [address] 1.2.840.114 350.1.13.58 [id number] [id number] [facility] 2022-11-02 11:45:00 2022-11-02 11:45:00 Outpatient ONEYDA QUARLES [facility] [id number] [facility] 2022-10-05 11:45:00 2022-10-05 12:32:47 Office Visit Zulma Bejarano [facility] [address] 1.2.840.114 350.1.13.58 [id number] [id number] [facility] 2022-10-05 11:45:00 2022-10-05 12:32:[address] [facility] [id number] [facility] 2022-09-20 14:00:00 2022-09-20 14:00:00 Outpatient ZULMA BEJARANO [facility] [id number] [facility] 2022-07-13 10:33:28 2022-07-13 10:33:28 Outpatient [facility] [id number] Hebert Carrillo 2022-07-07 17:26:51 2022-07-07 17:26:51 Outpatient SFA SFA [id number] Hebret Carrillo 2022-07-07 00:00:00 2022-07-07 00:00:00 Outpatient Visit [id number] 2021-08-02 12:00:00 2021-08-02 12:50:00 Emergency X FRANCHESKA ALLEN [facility] ERT [id number] [facility] 2021-08-02 12:00:00 2021-08-02 12:50:00 Emergency Francheska Allen [facility] 1.2.840.114 350.1.13.10 [id number] [id number] [facility] 2020-03-31 12:53:00 2020-03-31 16:56:00 Emergency David Moreau [facility] 1.2.840.114 350.1.13.10 [id number] [id number] [facility] 2020-03-31 12:53:00 2020-03-31 16:56:00 Emergency David Moreau [facility] 1.2.840.114 350.1.13.10 [id number] [id number] 2020-03-31 12:53:00 2020-03-31 12:53:00 Emergency David HERNANDEZ [facility] ERT [id number] [facility] Results Test Description Test Time Test Comments Results Result Co mments Source COMPREHENSIVE METABOLIC [id number] 04:09:00* Test Item Value Reference Range Interpretation Comme nts GLUCOSE (test code = 2217) 111 MG/DL 70-99 H BUN (test code = 2207) 15 MG/DL 6-20 CREATININE (test code = 2213) 0.62 MG/DL 0.80-1.40 L eGFR (2020 CKD-EPI) (test code = ) 117 ML/MIN/1.73 >60 CALC BUN/CREAT (test code [...] TESTING PERFORMED AT [facility] [address] [place] [address] MOLD TOOLING TECHNICIAN: RIKI MAYA M.D. [place] NUMBER [id number] [facility] [place]. [id number] HEMOGLOBIN [id number] 03:21:06* Test Item Value Reference Range Interpretation Comme nts HEMOGLOBIN A1c (test code = 67200) 7.3 % 4.2-5.6 H [employer] GUIDELINES FOR HGB A1C: [...] CONSIDER ALTERNATE TESTING OR LABORATORY CONSULTATION. HEMOGLOBIN [id number] 00:00:00* Test Item Value Reference Range Interpretation Comme nts HEMOGLOBIN A1c (test code = 90795) 7.3 % Hebert CarrilloLIPID [id number] 00:00:00* Test Item Value Reference Range Interpretation Comme nts CHOLESTEROL (test code = 2210) 198 MG/DL TRIGLYCERIDES (test code = 2232) 185 MG/DL HDL CHOLESTEROL (test code = 2220) 52 MG/DL CALC LDL CHOL (test code = 2237) 115 MG/DL RISK RATIO LDL/HDL (test cod e = 2238) 2.21 RATIO Hebert Portillo AustinCOMPREHENSIVE METABOLIC [id number] 00:00:00* Test Item Value Reference Range Interpretation Comme nts GLUCOSE (test code = 2217) 111 MG/DL BUN (test code = 2208) 15 MG/DL CREATININE (test code = 2214) 0.62 MG/DL eGFR (2020 CKD-EPI) (test code = 65238) 117 ML/MIN/1.73 CALC BUN/CREAT (test code = [...] 2219) 17 U/L Hebert Portillo AustinCOMPREHENSIVE METABOLIC [id number] 04:44:56* Test Item Value Reference Range Interpretation Comme nts GLUCOSE (test code = 2217) 260 MG/DL 70-99 H BUN (test code = 2208) 16 MG/DL 6-20 CREATININE (test code = 2214) 0.78 MG/DL 0.80-1.40 L eGFR (2020 CKD-EPI) (test code = ) 109 ML/MIN/1.73 >60 CALC BUN/CREAT (test code [...] code = 2218) 17 U/L 5-50 LIPID [id number] 04:44:56* Test Item Value Reference Range Interpretation Comme nts CHOLESTEROL (test code = 2209) 174 MG/DL <200 TRIGLYCERIDES (test code = [...] SPECIMENS. FOR MOREINFORMATION, SEE CLIENT ANNOUNCEMENT AT [email or web address] RISK RATIO LDL/HDL (test code = 2237) 1.59 RATIO <3.55 HEMOGLOBIN [id number] 02:57:13* Test Item Value Reference Range Interpretation Comme [facility] HEMOGLOBIN A1c (test code = 39553) 10.7 % 4.2-5.6 H [employer] GUIDELINES FOR HGB A1C: [...] TESTING PERFORMED AT [facility] [address] [place] [address] MOLD TOOLING TECHNICIAN: RIKI MAYA M.D. [place] NUMBER [id number] [facility] [place]. [id number] HEMOGLOBIN [id number] 00:00:00* Test Item Value Reference Range Interpretation Comme [facility] HEMOGLOBIN A1c (test code = 39099) 10.7 % Hebert CarrilloCOMPREHENSIVE METABOLIC [id number] 00:00:00* Test Item Value Reference Range Interpretation Comme nts GLUCOSE (test code = 2217) 260 MG/DL BUN (test code = 2208) 16 MG/DL CREATININE (test code = 2214) 0.78 MG/DL eGFR (2020 CKD-EPI) (test code = 25657) 109 ML/MIN/1.73 CALC BUN/CREAT (test code = [...] = 2219) 17 U/L Hebert Portillo AustinLIPID [id number] 00:00:00* Test Item Value Reference Range Interpretation Comme nts CHOLESTEROL (test code = 2210) 174 MG/DL TRIGLYCERIDES (test code = 2232) 195 MG/DL HDL CHOLESTEROL (test code = 2220) 56 MG/DL CALC LDL CHOL (test code = 2237) 89 MG/DL RISK RATIO LDL/HDL (test cod e = 2238) 1.59 RATIO Hebert CarrilloHEMOGLOBIN [id number] 00:00:00* Test Item Value Reference Range Interpretation Comme nts HEMOGLOBIN A1c (test code = 75390) 10.7 % Hebert CarrilloCOMPREHENSIVE METABOLIC [id number] 00:00:00* Test Item Value Reference Range Interpretation Comme nts GLUCOSE (test code = 2217) 260 MG/DL BUN (test code = 2208) 16 MG/DL CREATININE (test code = 2214) 0.78 MG/DL eGFR (2020 CKD-EPI) (test code = 07673) 109 ML/MIN/1.73 CALC BUN/CREAT (test code = [...] code = 2219) 17 U/L Hebert CarrilloLIPID [id number] 00:00:00* Test Item Value Reference Range Interpretation Comme nts CHOLESTEROL (test code = 2210) 174 MG/DL TRIGLYCERIDES (test code = 2232) 195 MG/DL HDL CHOLESTEROL (test code = 2220) 56 MG/DL CALC LDL CHOL (test code = 2237) 89 MG/DL RISK RATIO LDL/HDL (test cod e = 2238) 1.59 RATIO Hebert Portillo AustinHEMOGLOBIN [id number] 00:00:00* Test Item Value Reference Range Interpretation Comme nts HEMOGLOBIN A1c (test code = 56965) 10.7 % Hebert Portillo AustinCOMPREHENSIVE METABOLIC [id number] 00:00:00* Test Item Value Reference Range Interpretation Comme nts GLUCOSE (test code = 2217) 260 MG/DL BUN (test code = 2208) 16 MG/DL CREATININE (test code = 2214) 0.78 MG/DL eGFR (2020 CKD-EPI) (test code = 52990) 109 ML/MIN/1.73 CALC BUN/CREAT (test code = [...] = 2219) 17 U/L Hebert Portillo AustinLIPID [id number] 00:00:00* Test Item Value Reference Range Interpretation Comme nts CHOLESTEROL (test code = 2210) 174 MG/DL TRIGLYCERIDES (test code = 2232) 195 MG/DL HDL CHOLESTEROL (test code = 2220) 56 MG/DL CALC LDL CHOL (test code = 2237) 89 MG/DL RISK RATIO LDL/HDL (test cod e = 2238) 1.59 RATIO Hebert Portillo AustinHEMOGLOBIN [id number] 00:00:00* Test Item Value Reference Range Interpretation Comme nts HEMOGLOBIN A1c (test code = 26571) 10.7 % Hebert Portillo AustinCOMPREHENSIVE METABOLIC [id number] 00:00:00* Test Item Value Reference Range Interpretation Comme nts GLUCOSE (test code = 2217) 260 MG/DL BUN (test code = 2208) 16 MG/DL CREATININE (test code = 2214) 0.78 MG/DL eGFR (2020 CKD-EPI) (test code = 22567) 109 ML/MIN/1.73 CALC BUN/CREAT (test code = [...] code = 2219) 17 U/L Hebert CarrilloLIPID [id number] 00:00:00* Test Item Value Reference Range Interpretation Comme nts CHOLESTEROL (test code = 2210) 174 MG/DL TRIGLYCERIDES (test code = 2232) 195 MG/DL HDL CHOLESTEROL (test code = 2220) 56 MG/DL CALC LDL CHOL (test code = 2237) 89 MG/DL RISK RATIO LDL/HDL (test cod e = 2238) 1.59 RATIO Hebert CarrilloCOMPREHENSIVE METABOLIC [id number] 05:45:55* Test Item Value Reference Range Interpretation Comme nts GLUCOSE (test code = 2217) 341 MG/DL 70-99 H BUN (test code = 2208) 15 MG/DL 6-20 CREATININE (test code = 2214) 0.70 MG/DL 0.80-1.40 L eGFR (2020 CKD-EPI) (test code = 94832) 114 ML/MIN/1.73 >60 CALC BUN/CREAT (test code = 2235) 21 RATIO 6-28 SODIUM (test code = 2230) 136 MEQ/L 133-146 POTASSIUM (test code = 8) 4.5 MEQ/L 3.5-5.4 CHLORIDE (test code = 221) 100 MEQ/L 95-107 CARBON DIOXIDE (test code = 2205) 22 MEQ/L 19-31 CALCIUM (test code = 2208) 9.8 MG/DL 8.5-10.5 PROTEIN, TOTAL (test code = 2228) 7.4 G/DL 6.1-8.3 ALBUMIN (test code = 2200) 4.7 G/DL 3.5-5.2 CALC GLOBULIN (test code = 2240) 2.7 G/DL 1.9-3.7 CALC A/G RATIO (test code = 2233) 1.7 RATIO 1.0-2.6 BILIRUBIN, TOTAL (test code = 2206) 0.2 MG/DL <=1.2 ALKALINE PHOSPHATASE (test code = 2203) 169 U/L 40-118 H AST (test code = 2217) 14 U/L 9-50 ALT (test code = 2218) 16 U/L 5-50 LIPID [id number] 05:45:55* Test Item Value Reference Range Interpretation Comme nts CHOLESTEROL (test code = 0) 270 MG/DL <200 H TRIGLYCERIDES (test code = 2232) 371 MG/DL <150 H HDL CHOLESTEROL (test code = 0) 54 MG/DL >39 CALC LDL CHOL (test code = 2236) 159 MG/DL <100 H NOTE: CALCULATED LDL IS BASED ON HAZEL-MARI METHOD WHICHINCLUDES ADJUSTABLE TRIGLYCERIDE:VLDL CHOLESTEROL RATIO.THIS FACTOR VARIES BY MEASURED TRIGLYCERIDE AND NON-HDLCHOLESTEROL CONCENTRATIONS WITH INCREASED CALCULATED LDL SEENIN HIGHER TRIGLYCERIDE OR LOWER NON-HDL SPECIMENS. FOR MOREINFORMATION, SEE CLIENT ANNOUNCEMENT AT [email or web address] RISK RATIO LDL/HDL (test code = 223) 2.94 RATIO <3.55 UNLESS OTHERW ISE INDICATED, ALL TESTING PERFORMED AT [facility] [address] [place] [address] MOLD TOOLING TECHNICIAN: RIKI MAYA M.D. CLIA NUMBER [id number] [facility] [place]. [id number] HEMOGLOBIN [id number] 03:54:48* Test Item Value Reference Range Interpretation Comme [facility] HEMOGLOBIN A1c (test code = 02712) 11.2 % 4.2-5.6 H [employer] GUIDELINES FOR HGB A1C: [...] CONSIDER ALTERNATE TESTING OR LABORATORY CONSULTATION. LIPID [id number] 00:00:00* Test Item Value Reference Range Interpretation Comme nts CHOLESTEROL (test code = 2210) 270 MG/DL TRIGLYCERIDES (test code = 2232) 371 MG/DL HDL CHOLESTEROL (test code = 2220) 54 MG/DL CALC LDL CHOL (test code = 2237) 159 MG/DL RISK RATIO LDL/HDL (test cod e = 2238) 2.94 RATIO Hebert CarrilloHEMOGLOBIN [id number] 00:00:00* Test Item Value Reference Range Interpretation Comme [facility] HEMOGLOBIN A1c (test code = 28037) 11.2 % Hebert CarrilloCOMPREHENSIVE METABOLIC [id number] 00:00:00* Test Item Value Reference Range Interpretation Comme nts GLUCOSE (test code = 2217) 341 MG/DL BUN (test code = 2208) 15 MG/DL CREATININE (test code = 2214) 0.70 MG/DL eGFR (2020 CKD-EPI) (test code = 39540) 114 ML/MIN/1.73 CALC BUN/CREAT (test code = [...] code = 2219) 16 U/L Hebert CarrilloLIPID [id number] 00:00:00* Test Item Value Reference Range Interpretation Comme nts CHOLESTEROL (test code = 2210) 270 MG/DL TRIGLYCERIDES (test code = 2232) 371 MG/DL HDL CHOLESTEROL (test code = 2220) 54 MG/DL CALC LDL CHOL (test code = 2237) 159 MG/DL RISK RATIO LDL/HDL (test cod e = 2238) 2.94 RATIO Hebert CarrilloHEMOGLOBIN [id number] 00:00:00* Test Item Value Reference Range Interpretation Comme nts HEMOGLOBIN A1c (test code = 51653) 11.2 % Hebert CarrilloCOMPREHENSIVE METABOLIC [id number] 00:00:00* Test Item Value Reference Range Interpretation Comme nts GLUCOSE (test code = 2217) 341 MG/DL BUN (test code = 2208) 15 MG/DL CREATININE (test code = 2214) 0.70 MG/DL eGFR (2020 CKD-EPI) (test code = 80942) 114 ML/MIN/1.73 CALC BUN/CREAT (test code = [...] = 2219) 16 U/L Hebert Portillo AustinLIPID [id number] 00:00:00* Test Item Value Reference Range Interpretation Comme nts CHOLESTEROL (test code = 2210) 270 MG/DL TRIGLYCERIDES (test code = 2232) 371 MG/DL HDL CHOLESTEROL (test code = 2220) 54 MG/DL CALC LDL CHOL (test code = 2237) 159 MG/DL RISK RATIO LDL/HDL (test cod e = 2238) 2.94 RATIO Hebert CarrilloHEMOGLOBIN [id number] 00:00:00* Test Item Value Reference Range Interpretation Comme nts HEMOGLOBIN A1c (test code = 49691) 11.2 % Hebert CarrilloCOMPREHENSIVE METABOLIC [id number] 00:00:00* Test Item Value Reference Range Interpretation Comme nts GLUCOSE (test code = 2217) 341 MG/DL BUN (test code = 2208) 15 MG/DL CREATININE (test code = 2214) 0.70 MG/DL eGFR (2020 CKD-EPI) (test code = 67695) 114 ML/MIN/1.73 CALC BUN/CREAT (test code = [...] = 2219) 16 U/L Hebert Portillo AustinLIPID [id number] 00:00:00* Test Item Value Reference Range Interpretation Comme nts CHOLESTEROL (test code = 2210) 270 MG/DL TRIGLYCERIDES (test code = 2232) 371 MG/DL HDL CHOLESTEROL (test code = 2220) 54 MG/DL CALC LDL CHOL (test code = 2237) 159 MG/DL RISK RATIO LDL/HDL (test cod e = 2238) 2.94 RATIO Hebert CarrilloHEMOGLOBIN [id number] 00:00:00* Test Item Value Reference Range Interpretation Comme [facility] HEMOGLOBIN A1c (test code = 45953) 11.2 % Hebert CarrilloCOMPREHENSIVE METABOLIC [id number] 00:00:00* Test Item Value Reference Range Interpretation Comme [facility] GLUCOSE (test code = 2217) 341 MG/DL BUN (test code = 2208) 15 MG/DL CREATININE (test code = 2214) 0.70 MG/DL eGFR (2020 CKD-EPI) (test code = 60113) 114 ML/MIN/1.73 CALC BUN/CREAT (test code = [...] = 2219) 16 U/L Hebert CarrilloCBC W/AUTO [id number] 00:00:00* Test Item Value Reference Range Interpretation Comme [facility] WBC (test code = 1001) 8.0 K/UL [...] ABS NUCLEATED RBCS (test cod e = 53509) 0.00 K/UL Hebert Portillo GerardoCOMPREHENSIVE METABOLIC [id number] 00:00:00* Test Item Value Reference Range Interpretation Comme nts GLUCOSE (test code = 2217) 187 MG/DL BUN (test code = 2208) 13 MG/DL CREATININE (test code = 2214) 0.55 MG/DL eGFR (2020 CKD-EPI) (test code = 93158) 123 ML/MIN/1.73 CALC BUN/CREAT (test code = [...] code = 2219) 17 U/L Hebert CarrilloLIPID [id number] 00:00:00* Test Item Value Reference Range Interpretation Comme nts CHOLESTEROL (test code = 2210) 259 MG/DL TRIGLYCERIDES (test code = 2232) 280 MG/DL HDL CHOLESTEROL (test code = 2220) 55 MG/DL CALC LDL CHOL (test code = 2237) 158 MG/DL RISK RATIO LDL/HDL (test cod e = 2238) 2.87 RATIO Hebert Morales, THIRD [id number] 00:00:00* Test Item Value Reference Range Interpretation Comme nts TSH, THIRD GENERATION (test code = 2821) 1.040 UIU/ML Hebert CarrilloHEMOGLOBIN [id number] 00:00:00* Test Item Value Reference Range Interpretation Comme nts HEMOGLOBIN A1c (test code = 50488) 12.2 % Hebert CarrilloCBC W/AUTO [id number] 00:00:00* Test Item Value Reference Range Interpretation [...] ABS NUCLEATED RBCS (test cod e = 71244) 0.00 K/UL Hebert CarrilloCOMPREHENSIVE METABOLIC [id number] 00:00:00* Test Item Value Reference Range Interpretation Comme nts GLUCOSE (test code = 2217) 187 MG/DL BUN (test code = 2208) 13 MG/DL CREATININE (test code = 2214) 0.55 MG/DL eGFR (2020 CKD-EPI) (test code = 24534) 123 ML/MIN/1.73 CALC BUN/CREAT (test code = [...] code = 2219) 17 U/L Hebert CarrilloLIPID [id number] 00:00:00* Test Item Value Reference Range Interpretation Comme nts CHOLESTEROL (test code = 2210) 259 MG/DL TRIGLYCERIDES (test code = 2232) 280 MG/DL HDL CHOLESTEROL (test code = 2220) 55 MG/DL CALC LDL CHOL (test code = 2237) 158 MG/DL RISK RATIO LDL/HDL (test cod e = 2238) 2.87 RATIO Hebert CarrilloTSH, THIRD [id number] 00:00:00* Test Item Value Reference Range Interpretation Comme [facility] TSH, THIRD GENERATION (test code = 2821) 1.040 UIU/ML Hebert CarrilloHEMOGLOBIN [id number] 00:00:00* Test Item Value Reference Range Interpretation Comme nts HEMOGLOBIN A1c (test code = 90134) 12.2 % Hebert CarrilloCBC W/AUTO [id number] 00:00:00* Test Item Value Reference Range Interpretation [...] ABS NUCLEATED RBCS (test cod e = 32832) 0.00 K/UL Hebert F AustinCOMPREHENSIVE METABOLIC [id number] 00:00:00* Test Item Value Reference Range Interpretation Comme nts GLUCOSE (test code = 2217) 187 MG/DL BUN (test code = 2208) 13 MG/DL CREATININE (test code = 2214) 0.55 MG/DL eGFR (2020 CKD-EPI) (test code = 10539) 123 ML/MIN/1.73 CALC BUN/CREAT (test code = [...] code = 2219) 17 U/L Hebert CarrilloLIPID [id number] 00:00:00* Test Item Value Reference Range Interpretation Comme nts CHOLESTEROL (test code = 2210) 259 MG/DL TRIGLYCERIDES (test code = 2232) 280 MG/DL HDL CHOLESTEROL (test code = 2220) 55 MG/DL CALC LDL CHOL (test code = 2237) 158 MG/DL RISK RATIO LDL/HDL (test cod e = 2238) 2.87 RATIO Hebert CarrilloTSH, THIRD [id number] 00:00:00* Test Item Value Reference Range Interpretation Comme nts TSH, THIRD GENERATION (test code = 2821) 1.040 UIU/ML Hebert CarrilloHEMOGLOBIN [id number] 00:00:00* Test Item Value Reference Range Interpretation Comme nts HEMOGLOBIN A1c (test code = 31717) 12.2 % Hebert CarrilloCBC W/AUTO [id number] 00:00:00* Test Item Value Reference Range Interpretation [...] ABS NUCLEATED RBCS (test cod e = 61056) 0.00 K/UL Hebert Portillo GerardoCOMPREHENSIVE METABOLIC [id number] 00:00:00* Test Item Value Reference Range Interpretation Comme nts GLUCOSE (test code = 2217) 187 MG/DL BUN (test code = 2208) 13 MG/DL CREATININE (test code = 2214) 0.55 MG/DL eGFR (2020 CKD-EPI) (test code = 25121) 123 ML/MIN/1.73 CALC BUN/CREAT (test code = [...] code = 2219) 17 U/L Hebert CarrilloLIPID [id number] 00:00:00* Test Item Value Reference Range Interpretation Comme nts CHOLESTEROL (test code = 2210) 259 MG/DL TRIGLYCERIDES (test code = 2232) 280 MG/DL HDL CHOLESTEROL (test code = 2220) 55 MG/DL CALC LDL CHOL (test code = 2237) 158 MG/DL RISK RATIO LDL/HDL (test cod e = 2238) 2.87 RATIO Hebert FranciscoH, THIRD [id number] 00:00:00* Test Item Value Reference Range Interpretation Comme [place] TSH, THIRD GENERATION (test code = 2821) 1.040 UIU/ML Hebert CarrilloHEMOGLOBIN [id number] 00:00:00* Test Item Value Reference Range Interpretation Comme [facility] HEMOGLOBIN A1c (test code = 51752) 12.2 % Hebert CarrilloPOCT GLUCOSE (AUTOMATED)2021-08-02 18:03:13* Test Item Value Reference Range Interpretation Comme [place] POCT GLU (test code = 3944131642) 231 mg/dL 70-110 H Lab Interpretation (test cod e = 70149-1) [facility]26:[facility]* Test Item Value Reference Range Interpretation Comme alden APPEARANCE (test code = 9244724070) Hazy Clear A COLOR (test code = 9837846165) Yellow Yellow PH (test code = 7554673742) 4.8-8.0 SP GRAVITY (test code = 1442102687) 1.003-1.030 GLU U QUAL (test code = 3114573350) 500 mg/dL Normal A BLOOD (test code = 8395427823) Negative Negative KETONES (test code = 3708305286) Negative Negative PROTEIN (test code = 2887-8) 30 mg/dL Negative A UROBILIN (test code = 3338066744) 2.0 mg/dL Normal A BILIRUBIN (test code = 4657927272) Negative Negative NITRITE (test code = 6600729091) Negative Negative LEUK VITO (test code = 6973445462) Negative Negative RBC/HPF (test code = 7219528845) See_Comment [Automated [employer]] The system which generated this result transmitted reference range: 0 - 3 HPF. The reference range was not used to interpret this result as normal/abnormal. WBC/HPF (test code = 7117224785) See_Comment [Automated [employer] ge] The system which generated this result transmitted reference range: 0 - 5 HPF. The reference range was not used to interpret this result as normal/abnormal. BACTERIA (test code = 2445158119) Few Negative A MUCOUS (test code = 9580162392) Marked Negative LPF A SQ EPITH (test code = 8037107655) <1 HPF HYAL CAST (test code = 2571930225) See_Comment H [Automated messa ge] The system which generated this result transmitted reference range: <=2 LPF. The reference range was not used to interpret this result as normal/abnormal. Lab Interpretation (test code = 91000-9) Abnormal [facility]. METABOLIC PANEL (30823)2020-03-31 19:31:00* Test Item Value Reference Range Interpretation Comme nts NA (test code = 4994758636) 136 mmol/L 135-145 K (test code = 5316514226) 3.9 mmol/L 3.5-5 CL (test code = 6059213188) 100 mmol/L 98-108 CO2 TOTAL (test code = 9597233984) 23 mmol/L 23-31 AGAP (test code = 3810053664) 2-16 BUN (test code = 4088177296) 16 mg/dL 7-23 GLUCOSE (test code = 0123087646) 297 mg/dL 70-110 H CREATININE (test code = 3557654295) 0.69 mg/dL 0.6-1.25 TOTAL BILI (test code = 8986086680) 0.9 mg/dL 0.1-1.1 CALCIUM (test code = 8519573694) 9.3 mg/dL 8.6-10.6 T PROTEIN (test code = 0954438398) 8.3 g/dL 6.3-8.2 H ALBUMIN (test code = 9399552810) 4.8 g/dL 3.5-5 ALK PHOS (test code = 0789595211) 83 U/L 34-122 ALTv (test code = 1742-6) 20 U/L 5-50 AST(SGOT) (test code = 3870798732) 37 U/L 13-40 eGFR Calculation (Non-) (test code = 7393766693) mL/min/1.73m2 eGFR Calculation () (test code = 0822735675) mL/min/1.73m2 DOREEN (test code = DOREEN) Slight [...] imaging tests). Lab Interpretation (test code = 85691-9) [facility] 19:25:00* Test Item Value Reference Range Interpretation Comme nts MAGNESIUM (test code = 5638757588) 1.9 mg/dL 1.7-2.4 Lab Interpretation (test cod e = 85533-5) Normal [facility] [id number] 19:02:00* Test Item Value Reference Range Interpretation Comme nts WBC (test code = 6690-2) See_Comment [Automated [employer] Meaning] The system which generated this result transmitted reference range: 4.20 - 10.70 10*3/?L. The reference range was not used to interpret this result as normal/abnormal. RBC (test code = 789-8) See_Comment [Automated [employer] Meaning] The system which generated this result transmitted [...] 34.1 g/dL 31.2-35 RDW-SD (test code = 91640-6) 39.1 fL 38.5-51.6 RDW-CV (test code = 788-0) 12.4 % 12.1-15.4 PLT (test code = 777-3) See_Comment [Automated messa ge] The system which generated this result transmitted reference range: 150 - 328 10*3/?L. The reference range was not used to interpret this result as normal/abnormal. MPV (test code = 96664-0) 10.7 fL 9.8-13 NRBC/100 WBC (test code = 5602335404) See_Comment [Automated me ssage] The system which generated this result transmitted reference range: 0.0 - 10.0 /100 WBCs. The reference range was not used to interpret this result as normal/abnormal. NRBC x10^3 (test code = 8979967193) <0.01 See_Comment [Automated me ssage] The system which generated this result transmitted reference range: 10*3/?L. The reference range was not used to interpret this result as normal/abnormal. GRAN MAT (NEUT) % (test code = 770-8) 60.8 % IMM GRAN % (test code = 6187379136) 0.40 % LYMPH % (test code = 736-9) 29.6 % MONO % (test code = 5905-5) 6.5 % EOS % (test code = 713-8) 2.3 % BASO % (test code = 706-2) 0.4 % GRAN MAT x10^3(ANC) (test code = 6007020643) 4.95 10*3/uL 1.99-6.95 IMM GRAN x10^3 (test code = 8876964151) 0.03 10*3/uL 0-0.06 LYMPH x10^3 (test code = 731-0) 2.41 10*3/uL 1.09-3.23 MONO x10^3 (test code = 742-7) 0.53 10*3/uL 0.36-1.02 EOS x10^3 (test code = 711-2) 0.19 10*3/uL 0.06-0.53 BASO x10^3 (test code = 704-7) 0.03 10*3/uL 0.01-0.09 [facility]"
[2024-09-19] MEDS ORDERED: TRAMADOL HCL 50 MG TAB ONE (10:04)
[2024-09-19 10:35] LABS: Absolute Eosinophils 0.1 K/uL (0-0.5); Absolute Lymphocytes (CBC) 2.6 K/uL (0.7-4.9); Absolute Monocytes 1.3 K/uL (0.1-1.3); Absolute Neutrophil 12.5 K/uL (1.8-8.0); Basophils % 0.3 % (0-1.3); Eosinophils % 0.4 % (0-4.4); Hematocrit 29.8 % (39.6-49.0); Hemoglobin 10.1 g/dL (13.6-17.9); Lymphocytes % 15.9 % (15.3-44.8); MCH 29.2 pg (27.0-35.0); MCV 85.9 fL (80-100); MPV 7.9 fL (7.6-11.3); Monocytes % 7.8 % (3.3-12.3); Neutrophils % 75.6 % (41.7-73.7); Platelets 516 thou/uL (152-406); RBC Red Blood Cell Count 3.47 M/uL (4.33-5.43); Red Cell Distribution Width 12.8 % (12.1-15.2)
--- NOTE | 2024-09-19 10:43 | RAD REPORT ---
EXAMINATION: CTA CHEST PE CLINICAL INDICATION: Male, 49 years old. left flank pain TECHNIQUE: This examination was performed according to an angiographic protocol with 3D post-processi ng. This involves 3D reconstructions, MIPs, volume rendered images and/or shaded surface rendering. One or more of the following dose reduction techniques were used: Automated exposure control, adjustm ent of the mA and/or kV according to patient size, and/or iterative reconstruction. Unless otherwise specified, incidental findings do not require dedicated imaging follow-up. [id number]. COMPARISON: 07/01/2022 FINDINGS: LOWER NECK: Visualized thyroid gland and soft tissues are normal. LUNGS AND AIRWAYS: Mild left lower lobe consolidation. Within the area of consolidation is a small fl uid attenuation structure measuring approximately 2 cm.Motion artifact limits evaluation for pulmonary nodule detection. Some other scattered areas of mild nodularity present bilaterally. No ove rtly suspicious pulmonary nodules identified. PLEURA: Small left pleural effusion. MEDIASTINUM AND LYMPH NODES: No mediastinal mass or fluid collection. Normal size mediastinal, hilar, and axillary lymph nodes. Mild distal esophageal thickening. THORACIC AORTA: No thoracic aortic aneurysm. PULMONARY ARTERIES: Caliber is within normal limits. No central pulmonary embolus identified. The seg mental and subsegmental pulmonary arteries cannot be adequately assessed due to motion and/or poor contrast opacifications. HEART: Normal heart size. No coronary calcifications.No significant pericardial effusion. OSSEOUS STRUCTURES AND CHEST WALL: No fracture or suspicious osseous lesions. UPPER ABDOMEN: Reference upper report. IMPRESSION: No central pulmonary embolus. Limited evaluation of the segmental and subsegmental pulmonary arteries due to motion. Left lower lobe consolidation with central area of fluid attenuation concerning for pneumonia and possible small intrapulmonary abscess (measuring approximately 2 cm). A small left pleu ral effusion is noted, presumably parapneumonic.
--- NOTE | 2024-09-19 10:52 | RAD REPORT ---
EXAMINATION: CT ABDOMEN AND PELVIS stone protocol WITHOUT CONTRAST CLINICAL INDICATION: Male, 49 years old.left flank pain TECHNIQUE: CT abdomen and pelvis stone protocol was performed, without IV contrast, as per department protocol. Axial, sagittal and coronal reconstructions were obtained. One or more of the following dose reduction techniques were used: Automated exposure control, adjustment of the mA and/or kV accor ding to the patient size, and/or iterative reconstruction. Unless otherwise specified, incidental findings do not require dedicated imaging follow-up. [id number]. IV CONTRAST: Not administered. COMPARISON: 07/01/2022 FINDINGS: The lack of intravenous contrast limits the sensitivity of this exam for evaluation of solid visceral organs, vascular structures, and retroperitoneum. LOWER CHEST: Reference separate report. UPPER GI: No significant abnormality. LIVER: Hepatic steatosis, but otherwise unremarkable. GALLBLADDER/BILE DUCTS: No biliary ductal dilatation.? PANCREAS: No mass, ductal dilation, or nilson-pancreatic fluid. SPLEEN: Unremarkable. ADRENALS: No adrenal masses. KIDNEYS AND URETERS: No hydronephrosis.Within the limitations of a noncontrast CT, no suspicious osmin l lesions.No renal or ureteral calculi. ABDOMINAL AORTA AND OTHER VESSELS: Normal caliber aorta and IVC. PERITONEUM: No abnormal free fluid. No free air. LYMPH NODES: No pathologic lymphadenopathy. ABDOMINAL WALL: Small fat containing umbilical hernia. Small fat-containing ventral hernias. SMALL BOWEL/COLON: Small bowel has normal course and caliber. No colonic wall thickening or pericolon ic inflammatory changes.Normal appendix. Mild diverticulosis without diverticulitis. URINARY BLADDER: Underdistended but grossly unremarkable. REPRODUCTIVE ORGANS: No pathologic process. MUSCULOSKELETAL: Right hip ORIF. No acute fractures. ADDITIONAL FINDINGS: None. IMPRESSION: No acute or significant abnormalities in the abdomen or pelvis, with evaluation limited by lack of IV contrast.
[2024-09-19 10:53] LABS: Albumin/Globulin Ratio 0.7 (1.1-1.8); Anion Gap 9.7 mEq/L (5.0-15.0); Bilirubin Total 0.4 mg/dL (0.2-1.0); Globulin 4.6 g/dL (2.3-3.5); Potassium 3.7 mEq/L (3.5-5.1); Protein, Total 7.6 g/dL (6.4-8.2)
[2024-09-19 11:10] LABS: Sqamous Epithelial None Seen /HPF (None Seen); Urine Bacteria None Seen /HPF (<20); Urine Culture Reflex Order NOT NEEDED; Urine Micro Reflex YN NO BILL MICROSCOPIC; Urine RBC None Seen /HPF (None Seen); Urine WBC <5 /HPF (<5)
--- NOTE | 2024-09-19 11:21 | EDPHYS ---
Physician Documentation [facility] Name: Jaden Luna Age: 49 yrs Sex: Male : 1975 Arrival Date: 09/19/2024 Time: 09:14 Bed 18 Private MD: ED Physician Bethel Leslie HPI: 09/19 09:50 This 49 yrs old Male presents to ER via Ambulatory with complaints of Low Back rn Pain. 09:50 The patient presents with pain that is acute. The symptoms are located in the left low rn back and left mid back. The pain does not radiate. Onset: The symptoms/episode began/occurred yesterday. Modifying factors: The patient symptoms are alleviated by nothing, the patient symptoms are aggravated by any movement. Associated signs and symptoms: Pertinent positives: none Pertinent negatives: abdominal pain, dysuria, fever, hematuria, incontinence, nausea, numbness, tingling, urinary retention. Severity of symptoms: At their worst the symptoms were mild, in the emergency department the symptoms are unchanged. The patient has not experienced similar symptoms in the past. Patient reports left flank pain that began last night, no radiation, does report urine looks darker than normal. No history of kidney stone. No trauma. No fever or chills. No abdominal pain. No vomiting or diarrhea. No family history of kidney stone.. Historical: - Allergies: 09:47 Aspirin; jl7 - Home Meds: 09:47 metformin 1 Oral tab 1 tab 2 times per day [Active]; Ozempic subcutaneous [Active]; jl7 - PMHx: 09:47 Diabetes - NIDDM; High Cholesterol; Hypertension; jl7 - Immunization history:: Adult Immunizations unknown. - Infectious Disease History:: Denies. - Social history:: Smoking status: Reported history of juuling and/or vaping. - Family history:: not pertinent. - Hospitalizations: : No recent hospitalization is reported. ROS: 09:50 Constitutional: Negative for fever, chills, and weight loss, Cardiovascular: Negative rn for chest pain, palpitations, and edema, Respiratory: Negative for shortness of breath, cough, wheezing, and pleuritic chest pain, Abdomen/GI: Negative for abdominal pain, nausea, vomiting, diarrhea, and constipation, Back: Positive for back pain : Positive for dark urine MS/Extremity: Negative for injury and deformity, Skin: Negative for injury, rash, and discoloration, Neuro: Negative for headache, weakness, numbness, tingling, and seizure, Exam: 09:50 Constitutional: This is a well developed, well nourished patient who is awake, alert, rn and in no acute distress. Cardiovascular: Regular rate and rhythm. No pulse deficits. Respiratory: No increased work of breathing, no retractions or nasal flaring. Abdomen/GI: Soft, nontender Back: No CVA tenderness MS/ Extremity: Pulses equal, no cyanosis. Neuro: Awake and alert, GCS 15 13:28 ECG was reviewed by the Attending Physician. rn Vital Signs: 09:46 BP 131 / 78; Pulse 99; Resp 17; Temp 98.1; Pulse Ox 96% ; Weight 108.86 kg; Height 5 jl7 ft. 1 in. ; Pain 10/10; 12:00 BP 122 / 78; Pulse 96; Resp 18; Pulse Ox 96% on R/A; db 12:51 BP 121 / 96; Pulse 117; Resp 20; Pulse Ox 96% on R/A; db 14:00 BP 117 / 82; Pulse 112; Resp 18; Temp 98.1; Pulse Ox 96% ; db 09:46 Body Mass Index 45.35 (108.86 kg, 154.94 cm) jl7 09:46 Pain Scale: Adult jl7 MDM: 09:23 Medical Screening Exam initiated rn 11:07 Differential diagnosis: arthritis, strain, Urinary tract infection, kidney stone, rn pneumonia. Data reviewed: vital signs, nurses notes, lab test result(s), radiologic studies, CT scan, and as a result, I will admit patient. Management of patient was discussed with the following: Vice President Of Sales: Consulted with Dr. Raines, went over CT results of pneumonia with small pneumonic abscess and parapneumonic effusion without signs of loculation. States okay to admit here on Zosyn and will consult.. 11:19 Counseling: I had a detailed discussion with the patient and/or guardian regarding the rn historical points, exam findings, and any diagnostic results supporting the discharge/admit diagnosis, lab results, radiology results, the need for further work-up and treatment in the hospital. 09/19 09:49 Order name: CBC with Diff; Complete Time: 10:59 rn 09/19 09:49 Order name: CMP; Complete Time: 10:59 rn 09/19 09:49 Order name: Lipase; Complete Time: 10:59 rn 09/19 10:57 Order name: Urine Microscopic Only; Complete Time: 11:17 [facility] 09/19 11:06 Order name: Blood Culture Adult (2) rn 09/19 11:06 Order name: Lactate w/ 2H reflex if indic.; Complete Time: 13:28 09/19 11:06 Order name: Protime (+inr) 09/19 11:06 Order name: Ptt, Activated 09/19 12:41 Order name: Influenza Screen (A [facility] 09/19 12:41 Order name: Ferritin [facility] 09/19 12:41 Order name: Ferritin [facility] 09/19 12:41 Order name: Iron [facility] 09/19 12:41 Order name: Iron [facility] 09/19 12:41 Order name: Retic Count [facility] 09/19 12:41 Order name: Retic Count [facility] 09/19 12:41 Order name: Transferrin Sat/Iron Binding [facility] 09/19 12:41 Order name: Transferrin Sat/Iron Binding [facility] 09/19 12:42 Order name: Sputum Culture [facility] 09/19 12:42 Order name: Sputum Gram Stain [facility] 09/19 09:49 Order name: CT Stone Protocol; Complete Time: 10:59 09/19 10:05 Order name: CT Chest For PE Angio; Complete Time: 10:59 09/19 11:06 Order name: EKG; Complete Time: 11:07 rn 09/19 09:49 Order name: IV Saline Lock; Complete Time: 10:37 rn 09/19 09:49 Order name: Labs collected and sent; Complete Time: 10:37 rn 09/19 11:06 Order name: Accucheck; Complete Time: 12:48 rn 09/19 11:06 Order name: Cardiac monitoring; Complete Time: 12:47 rn 09/19 11:06 Order name: EKG - Nurse/Tech; Complete Time: 12:41 rn 09/19 11:06 Order name: IV Saline Lock - Large Bore; Complete Time: 12:02 rn 09/19 11:06 Order name: O2 Per Protocol; Complete Time: 12:41 rn 09/19 11:06 Order name: O2 Sat Monitoring; Complete Time: 12:41 rn 09/19 11:06 Order name: Vital Signs; Complete Time: 12:41 rn EC:28 Rate is 116 beats/min. Rhythm is regular. QRS [place] is Normal. UT interval is normal. rn QRS interval is normal. QT interval is normal. No Q waves. T waves are Normal. No ST changes noted. Clinical impression: Sinus tachycardia. Interpreted by me. Reviewed by me. Administered Medications: 10:30 Drug: traMADol PO 50 mg PO once Route: PO; db 12:00 Drug: morphine IVP or IV 4 mg IVP once over 4 mins Route: IVP; Infused Over: 4 mins; db Site: left antecubital; 12:40 Follow up: Response: Pain is unchanged, physician notified jl7 12:18 Drug: Piperacillin-Tazobactam IVPB 3.375 grams IVPB once over 60 mins; (mix in NS 100 db mL) Route: IVPB; Infused Over: 60 mins; Site: right forearm; 12:47 Drug: HYDROmorphone IVP 1 mg IVP once Route: IVP; Site: left antecubital; db Disposition Summary: 09/19/24 11:20 Hospitalization Ordered Notes: Hospitalization Status: Inpatient Admission rn Provider: Johnathon Avila rn Condition: Stable rn Problem: new rn Symptoms: are unchanged rn Bed/Room Type: Standard rn Location: Telemetry/MedSurg (Inpatient)(09/19/24 16:02) Room Assignment: [facility](09/19/24 16:02) bd Diagnosis - Pneumonia, unspecified organism - with abscess rn Forms: - Medication Reconciliation Form rn - SBAR form rn - Leadership Thank You Letter rn Signatures: Dispatcher [employer] EDAR Soila Yan bd Bethel Leslie MD MD rn Leal, Jahala, RN RN jl7 Robina Driver RN RN kb3 Latisha Rodriguez, RN RN db Corrections: (The following items were deleted from the chart) 09:50 09:50 Stone Protocol+CT.RAD.BRZ ordered. EDMS EDMS 10:57 09:50 Urinalysis+U.LAB.BRZ ordered. EDAR EDMS 13:05 11:20 Telemetry/MedSurg (Inpatient) rn kb3 13:05 11:20 rn kb3 16:02 13:05 BR ER HOLD kb3 bd 16:02 13:05 ERHOLD- kb3 bd
--- NOTE | 2024-09-19 11:21 | ER ---
Nurse's Notes [facility] Name: Jaden Luna Age: 49 yrs Sex: Male : 1975 Arrival Date: 09/19/2024 Time: 09:14 Bed 18 Private MD: Diagnosis: Pneumonia, unspecified organism-with abscess Presentation: 09/19 09:46 Chief complaint: Patient states: Left flank pain, denies urinary symptoms, started last jl7 night. Coronavirus screen: At this time, the client does not indicate any symptoms associated with coronavirus-19. Ebola Screen: No symptoms or risks identified at this time. Initial Sepsis Screen: Does the patient meet any 2 criteria? No. Patient's initial sepsis screen is negative. Does the patient have a suspected source of infection? No. Patient's initial sepsis screen is negative. Risk Assessment: Do you want to hurt yourself or someone else? Patient reports no desire to harm self or others. Onset of symptoms was September 18, 2024. 09:46 Method Of Arrival: Ambulatory [facility] 09:46 Acuity: JAMES 3 jl7 Triage Assessment: 09:47 General: Appears in no apparent distress. uncomfortable, Behavior is calm, cooperative, jl7 appropriate for age. Pain: Complains of pain in left flank Pain currently is 10 out of 10 on a pain scale. Neuro: No deficits noted. Cardiovascular: Patient's skin is warm and dry. Respiratory: Airway is patent Respiratory effort is even, unlabored, Respiratory pattern is regular, symmetrical. Derm: Skin is pink, warm \T\ dry. Historical: - Allergies: 09:47 Aspirin; jl7 - Home Meds: 09:47 metformin 1 Oral tab 1 tab 2 times per day [Active]; Ozempic subcutaneous [Active]; jl7 - PMHx: 09:47 Diabetes - NIDDM; High Cholesterol; Hypertension; jl7 - Immunization history:: Adult Immunizations unknown. - Infectious Disease History:: Denies. - Social history:: Smoking status: Reported history of juuling and/or vaping. - Family history:: not pertinent. - Hospitalizations: : No recent hospitalization is reported. Screenin:44 [facility] ED Fall Risk Assessment (Adult) History of falling in the last 3 months, db including since admission No falls in past 3 months (0 pts) Confusion or Disorientation No (0 pts) Intoxicated or Sedated No (0 pts) Impaired Gait No (0 pts) Mobility Assist Device Used No (0 pt) Altered Elimination No (0 pt) Score/Fall Risk Level 0 - 2 = Low Risk Oriented to surroundings, Maintained a safe environment. Abuse screen: Denies threats or abuse. Denies injuries from another. Nutritional screening: No deficits noted. Tuberculosis screening: No symptoms or risk factors identified. Assessment: 10:10 Reassessment: PATIENT IS NOT IN ROOM AT THIS TIME. REPORTED PT IS IN RADIOLOGY. db 12:00 Reassessment: Patient appears in no apparent distress at this time. Patient and/or db family updated on plan of care and expected duration. Pain level reassessed. Patient is alert, oriented x 3, equal unlabored respirations, skin warm/dry/pink. General: Appears in no apparent distress. comfortable, Behavior is calm, cooperative. Neuro: Level of Consciousness is awake, alert, obeys commands, Oriented to person, place, time, situation. 14:00 Reassessment: Patient appears in no apparent distress at this time. Patient and/or db family updated on plan of care and expected duration. Pain level reassessed. Patient is alert, oriented x 3, equal unlabored respirations, skin warm/dry/pink. 15:11 Reassessment: Patient appears in no apparent distress at this time. Patient and/or db family updated on plan of care and expected duration. Pain level reassessed. Patient is alert, oriented x 3, equal unlabored respirations, skin warm/dry/pink. Respiratory: Airway is patent Respiratory effort is even, unlabored, Respiratory pattern is regular, symmetrical. Vital Signs: 09:46 BP 131 / 78; Pulse 99; Resp 17; Temp 98.1; Pulse Ox 96% ; Weight 108.86 kg; Height 5 jl7 ft. 1 in. ; Pain 10/10; 12:00 BP 122 / 78; Pulse 96; Resp 18; Pulse Ox 96% on R/A; db 12:51 BP 121 / 96; Pulse 117; Resp 20; Pulse Ox 96% on R/A; db 14:00 BP 117 / 82; Pulse 112; Resp 18; Temp 98.1; Pulse Ox 96% ; db 09:46 Body Mass Index 45.35 (108.86 kg, 154.94 cm) [facility] 09:46 Pain Scale: Adult jl7 ED Course: 09:16 Patient arrived in ED. im 09:23 Bethel Leslie MD is Attending Physician. rn 09:47 Triage completed. jl7 09:47 Arm band placed on right wrist. jl7 10:04 CT Stone Protocol In Process Unspecified. EDMS 10:25 CT Chest For PE Angio In Process Unspecified. EDMS 10:36 Latisha Rodriguez, RN is Primary Nurse. db 10:37 Initial lab(s) drawn, by ED staff. Inserted saline lock: 22 gauge in right antecubital db area, using aseptic technique. Blood collected. Flushed with 10 mL NS. 11:19 Johnathon Avila is Hospitalizing Provider. rn 11:40 First set of blood cultures drawn by hi. zm 11:55 Initial lab(s) drawn, by hi, sent to lab. zm 11:55 Inserted saline lock: 20 gauge in left antecubital area, using aseptic technique. Blood zm collected. Flushed with 10 mL NS. 11:55 Second set of blood cultures drawn by me. zm 12:02 Blood Culture Adult (2) Sent. zm 12:02 Lactate w/ 2H reflex if indic. Sent. zm 12:02 Protime (+inr) Sent. zm 12:02 Ptt, Activated Sent. zm 12:07 Patient has correct armband on for positive identification. Side rails up X 1. Client db placed on continuous cardiac and pulse oximetry monitoring. NIBP monitoring applied. teletypesetter monitor on. Pulse ox on. NIBP on. 15:11 Provided Education on: ADMISSION. db 15:11 No provider procedures requiring assistance completed. Patient admitted, IV remains in db place. Administered Medications: 10:30 Drug: traMADol PO 50 mg PO once Route: PO; db 12:00 Drug: morphine IVP or IV 4 mg IVP once over 4 mins Route: IVP; Infused Over: 4 mins; db Site: left antecubital; 12:40 Follow up: Response: Pain is unchanged, physician notified jl7 12:18 Drug: Piperacillin-Tazobactam IVPB 3.375 grams IVPB once over 60 mins; (mix in NS 100 db mL) Route: IVPB; Infused Over: 60 mins; Site: right forearm; 12:47 Drug: HYDROmorphone IVP 1 mg IVP once Route: IVP; Site: left antecubital; db Medication: 15:11 VIS not applicable for this client. db Outcome: 11:20 Decision to Hospitalize by Provider. rn 15:11 Admitted to ER Hold. Please see [facility] for further documentation. db 15:11 Condition: stable 15:11 Instructed on the need for admit, 17:16 Patient left the ED. Signatures: Dispatcher [employer] EDMS Bethel Leslie MD MD rn Leal, Jahala, RN RN Alana Escobar Danielle, RN RN db Mendoza, Itzel im Corrections: (The following items were deleted from the chart) 12:00 11:55 First set of blood cultures drawn Second set of blood cultures drawn by el navarro 12:01 11:59 Inserted saline lock: 20 gauge in left antecubital area, using aseptic technique. Blood collected. Flushed with 10 mL NS 12:01 11:55 First set of blood cultures drawn Second set of blood cultures drawn by el navarro 12:01 11:40 First set of blood cultures drawn [facility]
[2024-09-19] MEDS ORDERED: NA CHLORIDE 0.9% 100 ML ONE (11:56)
[2024-09-19] MEDS ORDERED: MORPHINE 4 MG/ML SYR ONE ×2 (11:56→15:42)
[2024-09-19] MEDS ORDERED: PIPERACIL/TAZO 3.375 GM VIAL IV ONE (11:57)
[2024-09-19] MEDS ORDERED: BENZONATATE 100 MG CAP PO PRN (12:32)
[2024-09-19] MEDS ORDERED: ALBUTEROL 2.5 MG/3 ML NEB SOL NEB PRN ×2 (12:32→14:18)
[2024-09-19] MEDS ORDERED: ACETAMINOPHEN 325 MG TABLET PO PRN (12:32)
[2024-09-19] MEDS ORDERED: HYDROMORPHONE HCL 1 MG/ML INJ ONE (12:43)
[2024-09-19] MEDS: IPRATROPIUM BROM 0.5MG/2.5ML NEB SCH (13:00)
[2024-09-19] MEDS ORDERED: KETOROLAC 30 MG/ML INJ IV PRN (13:32)
[2024-09-19] MEDS ORDERED: D10W 125 ML IV PRN (13:33)
[2024-09-19] MEDS ORDERED: GLUCAGON 1 MG/VIAL IM PRN (13:33)
--- NOTE | 2024-09-19 13:45 | P.HP ---
Certification for Inpatient With expected LOS: >2 Midnights Practitioner: I am a practitioner with admitting privileges, knowledge of patient current condition, hospital course, and medical plan of care. Services: Services provided to patient in accordance with Admission requirements found in Title 42 Section 412.3 of the Code of Federal Regulations Patient History Date of Service: 09/19/24 Reason for admission: Pneumonia and parapneumonic effusion History of Present Illness: This is 49 years old gentleman with a past medical history notable for type 2 diabetes on Ozempic and metformin, morbid obesity, traumatic right femur fracture status post metallic leny who presented to emergency room for evaluation of left flank pain for 2 days, severe in intensity, constant, aggravated by deep inspiration and movement, no medication tried at home, not associated with fever or chill or productive cough or shortness of breath or urinary symptom. His vital sign is stable, afebrile, oxygen saturation is 96% on room air upon arrival emergency room, CT of the chest and abdomen demonstrated consolidation of the left lower lobe with small left-sided pleural effusion and 2 cm sized low-density within the consolidation and being admitted on medical floor. Patient denied cigarette smoking but admitted to [facility], he has been diabetic for the past 10 years, no serious infection or complication such as stroke or heart attack. His greatest hemoglobin A1c is 7.2 on Ozempic and metformin, his last dose of Ozempic was 2 days ago. Allergies aspirin Allergy (Verified 09/19/24 13:13) UNK Review of Systems Other: Consitutional; fever(-), chills (-), rigor(-), night sweat(-), unintentional weight loss(-), malaise (-) HEENT; diplopia (-), rhinorrhea (-), epistaxis (-), otorrhea (-), otalgia (-) Respiratory; shortness of breath (-), wheezing (-), cough (-), sputum (-), pleuritic chest pain (+) Cardiovascular; chest pain (-), peripheral edema (-), paroxysmal nocturnal dyspnea (-), orthopnea (-), Gastrointestinal; nausea (-), vomiting (-), abdominal pain (-), diarrhea (-), constipation (-), melena (-), hematochezia (-) Genitourinary; urinary frequency (-), dysuria (-), urgency (-), flank pain (-), gross hematuria (-), incontinence (-) Skin; rash (-), pruritus (-) 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 General: Not acutely ill looking, in no apparent distress,. HEENT: Normocephalic, atraumatic, nonicteric sclera, nonanemic conjunctive. Neck: Supple, without JVD or goiter or thyroid mass. Respiratory: Normal breathing effort, decreased breath sound in the left lower lobe, no crackles no wheezing or rhonchi. Cardiovascular: Regular rate and rhythm, S1, S2 normal, no murmur no gallop. Gastrointestinal: Normal bowel sounds, nondistended, nontender, No ascites, , No masses, no hepatosplenomegaly. Extremities : No clubbing, No peripheral edema, full range of motion, no deformity, no muscle atrophy. Integumentary: No rashes, petechia, suspected lesions. Lymphatics: No axilla or cervical lymphadenopathy. Neurology; alert awake oriented x3, no focal neurologic deficit, normal affection . mood and behavior. - Studies Laboratory Data (last 24 hrs) 09/19/24 09/19/24 10:23 10:23 WBC 16.50 H Hgb 10.1 L Hct 29.8 L Plt Count 516 H Sodium 136 Potassium 3.7 BUN 9 Creatinine 0.67 L Glucose 164 H Total Bilirubin 0.4 AST 11 L ALT 18 Alkaline Phosphatase 98 Lipase 40 Assessment and Plan - Plan This is a 49 years old gentleman, non-smoker but viping with past medical history notable for type 2 diabetes, morbid obesity, or the traumatic fracture of the right femur who presented to emergency room for left pleuritic chest pain and flank pain for 2 days. He was diagnosed with pneumonia in the left lower lobe with parapneumonic effusion by CT of abdomen and chest and admitted on general medical floor. 1. Community-acquired pneumonia, lobar pneumonia in the left lower lobe complicated with small left-sided parapneumonic pleural effusion, no sepsis Mild leukocytosis, afebrile, not hypoxic on room air, no risk of multidrug- resistant organism, I will continue Zosyn and add azithromycin, scheduled DuoNeb, antitussive, pain control with ketorolac, [place] as needed, I will request influenza A&B by rapid antigen test, sputum culture 2. Type 2 diabetes Random blood sugar 165, latest hemoglobin A1c per patient 7.2, will continue metformin and Ozempic, started on moderate dose insulin sliding scale 3. Normocytic anemia Likely anemia of inflammation/infection, no sign of clinical bleeding, I will order anemia study tomorrow morning DVT prophylaxis enoxaparin subcu Disposition; plan to discharge home in a few days - Advance Directives Does patient have a Living Will: No Does patient have a Durable POA for Healthcare: No
[2024-09-19] MEDS ORDERED: IPRATROPIUM BROM 0.5MG/2.5ML ONE (13:57)
[2024-09-19] MEDS ORDERED: ALBUTEROL 2.5 MG/3 ML NEB SOL ONE (13:57)
[2024-09-19] MEDS: MORPHINE 4 MG/ML SYR IV PRN (15:47)
[2024-09-19] MEDS ORDERED: MORPHINE 4 MG/ML SYR IV PRN (16:01)
[2024-09-19] MEDS ORDERED: HYDROCODONE/APAP 7.5/325 MG TAB ONE (16:15)
[2024-09-19] MEDS: HYDROCODONE/APAP 7.5/325 MG TAB PO PRN (16:22)
[2024-09-19] MEDS: INSULIN REGULAR (HUMAN) 100 UNIT/ML SQ SCH (16:30)
[2024-09-19] MEDS: GUAIFENESIN 600 MG SA TAB PO SCH (19:34)
[2024-09-19] MEDS: ACETAMINOPHEN 500 MG TAB PO PRN (19:34)
[2024-09-19] MEDS: PIPER TAZO 4.5 GM in NA CHLORIDE 0.9% 100 ML IV SCH (19:35)
[2024-09-19] MEDS: ZOLPIDEM TARTRATE 5 MG TABLET PO PRN (20:28)
[2024-09-19] MEDS: HYDROMORPHONE HCL 0.5 MG/0.5 ML INJ IV PRN (20:28)
[2024-09-19] MEDS: ALBUTEROL 2.5 MG/3 ML NEB SOL ONE (21:17)
[2024-09-20] MEDS: NITROGLYCERIN 0.4 MG/TAB SL ONE ×2 (04:12→04:14)
[2024-09-20] MEDS: KETOROLAC 30 MG/ML INJ ONE (04:14)
[2024-09-20] MEDS: KETOROLAC 30 MG/ML INJ IV ONE (04:39)
[2024-09-20 05:59] LABS: Absolute Lymphocytes (CBC) 2.1 K/uL (0.7-4.9); Absolute Monocytes 1.1 K/uL (0.1-1.3); Absolute Neutrophil 11.6 K/uL (1.8-8.0); Basophils % 0.2 % (0-1.3); Eosinophils % 0.2 % (0-4.4); Lymphocytes % 14.3 % (15.3-44.8); MCH 29.1 pg (27.0-35.0); MCHC 33.4 g/dL (32.0-36.0); MPV 7.8 fL (7.6-11.3); Monocytes % 7.6 % (3.3-12.3); Neutrophils % 77.7 % (41.7-73.7); Platelets 467 thou/uL (152-406); RBC Red Blood Cell Count 4.14 M/uL (4.33-5.43); Red Cell Distribution Width 13.3 % (12.1-15.2)
[2024-09-20 06:01] LABS: Percent Reticulocyte Count 1.56 % (0.4-2.05); RBC Red Blood Cell Count 4.07 M/uL (4.33-5.43)
[2024-09-20 06:26] LABS: ALT/SGPT 17 U/L (16-61); AST/SGOT < 10 U/L (15-37); Albumin/Globulin Ratio 0.6 (1.1-1.8); Alkaline Phosphatase 89 U/L (45-117); Anion Gap 10.2 mEq/L (5.0-15.0); BUN Blood Urea Nitrogen 9 mg/dL (7-18); Bicarbonate 26 mEq/L (21-32); Bilirubin Total 0.7 mg/dL (0.2-1.0); Globulin 4.7 g/dL (2.3-3.5); Glomerular Filtration Rate 114 ml/min (=/>90); Glucose Level 159 mg/dL (74-106); Potassium 3.2 mEq/L (3.5-5.1); Protein, Total 7.7 g/dL (6.4-8.2); Sodium Level 131 mEq/L (136-145)
[2024-09-20 06:27] LABS: Ferritin 164.3 ng/mL (26-388)
[2024-09-20] MEDS ORDERED: LABETALOL 20 MG/4ML SYRINGE IV PRN (08:17)
[2024-09-20] MEDS: AZITHROMYCIN 250 MG TAB PO SCH (09:28)
[2024-09-20] MEDS: POTASSIUM CL SA 10 MEQ TAB PO ONE (09:28)
[2024-09-20] MEDS: ENOXAPARIN 40 MG/0.4 ML SQ SCH (09:28)
[2024-09-20] MEDS: NICOTINE 21 MG/PAT TD SCH (09:35)
--- NOTE | 2024-09-20 13:59 | P.PN ---
Subjective Date of Service: 09/20/24 Chief Complaint: Pneumonia and parapneumonic effusion Subjective: Improving Patient reported his left pleuritic chest pain began to improving, seems to be responding to [place] 7.5/325, denied any shortness of breath or fever or chill. Review of Systems Other: Consitutional; fever(-), chills (-), rigor(-), night sweat(-), unintentional weight loss(-), malaise (-) HEENT; diplopia (-), rhinorrhea (-), epistaxis (-), otorrhea (-), otalgia (-) Respiratory; shortness of breath (-), wheezing (-), cough (-), sputum (-), pleuritic chest pain (+) Cardiovascular; chest pain (-), peripheral edema (-), paroxysmal nocturnal dyspnea (-), orthopnea (-) Gastrointestinal; nausea (-), vomiting (-), abdominal pain (-), diarrhea (-), constipation (-), melena (-), hematochezia (-) Genitourinary; urinary frequency (-), dysuria (-), urgency (-), flank pain (-), gross hematuria (-), incontinence (-) Skin; rash (-), 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 General: Not acutely ill looking, in no apparent distress,. HEENT: Normocephalic, atraumatic, nonicteric sclera, nonanemic conjunctive. Neck: Supple, without JVD or goiter or thyroid mass. Respiratory: Normal breathing effort, decreased breath sound in the left lower lobe, no crackles no wheezing or rhonchi. Cardiovascular: Regular rate and rhythm, S1, S2 normal, no murmur no gallop. Gastrointestinal: Normal bowel sounds, nondistended, nontender, No ascites, , No masses, no hepatosplenomegaly. Extremities : No clubbing, No peripheral edema, full range of motion, no deformity, no muscle atrophy. Integumentary: No rashes, petechia, suspected lesions. Lymphatics: No axilla or cervical lymphadenopathy. Neurology; alert awake oriented x3, no focal neurologic deficit, normal affection . mood and behavior. - Studies Laboratory Data (last 24 hrs) 09/19/24 11:06 PT Cancelled INR Cancelled APTT Cancelled Assessment And Plan - Plan This is a 49 years old gentleman, non-smoker but viping with past medical history notable for type 2 diabetes, morbid obesity, or the traumatic fracture of the right femur who presented to emergency room for left pleuritic chest pain and flank pain for 2 days. He was diagnosed with pneumonia in the left lower lobe with parapneumonic effusion by CT of abdomen and chest and admitted on general medical floor. 1. Community-acquired pneumonia, no sepsis lobar pneumonia in the left lower lobe complicated with small left-sided parapneumonic pleural effusion by CT of the chest and abdomen, no sepsis Mild leukocytosis, afebrile, not hypoxic on room air, no risk of multidrug- resistant organism, I will continue Zosyn and add azithromycin, scheduled DuoNeb, antitussive, pain control with ketorolac, [place] as needed, tested negative influenza A&B by rapid antigen test, sputum culture pending 2. Controlled type 2 diabetes Optimized glycemic control , latest hemoglobin A1c per patient 7.2, will continue metformin and Ozempic, moderate dose insulin sliding scale 3. Mild anemia of inflammation/infection Iron study reviewed, no sign of clinical bleeding, #4 sinus tachycardia and mild elevated blood pressure without history of hypertension due to pleuritic chest pain I will order labetalol as needed, expected to improve once pain is under control DVT prophylaxis enoxaparin subcu Disposition; plan to discharge home in a couple of days
[2024-09-20] MEDS ORDERED: NICOTINE 21 MG/PAT TD SCH (19:45)
[2024-09-21] MEDS ORDERED: NICOTINE 21 MG/PAT TD SCH (09:00)
[2024-09-21] MEDS: levoFLOXacin 750 MG TAB PO SCH (09:00)
--- NOTE | 2024-09-21 10:39 | P.PN ---
Subjective Date of Service: 09/21/24 Chief Complaint: Pneumonia and parapneumonic effusion Subjective: Improving He stated he is feeling better, less left pleuritic chest pain, now able to move and take a deep breath, started to have productive cough, chest discomfort relieved after coughing up to some phlegm, tolerating oral diet well, no fever or chill or rigor. Review of Systems Other: Consitutional; fever(-), chills (-), rigor(-), night sweat(-), unintentional weight loss(-), malaise (-) HEENT; diplopia (-), rhinorrhea (-), epistaxis (-), otorrhea (-), otalgia (-) Respiratory; shortness of breath (-), wheezing (-), cough (+), sputum (+), ple uritic chest pain (+) Cardiovascular; chest pain (-), peripheral edema (-), paroxysmal nocturnal dyspnea (-), orthopnea (-) Gastrointestinal; nausea (-), vomiting (-), abdominal pain (-), diarrhea (-), constipation (-), melena (-), hematochezia (-) Genitourinary; urinary frequency (-), dysuria (-), urgency (-), flank pain (-), gross hematuria (-), incontinence (-) Skin; rash (-), 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 General: Not acutely ill looking, in no apparent distress,. HEENT: Normocephalic, atraumatic, nonicteric sclera, nonanemic conjunctive. Neck: Supple, without JVD or goiter or thyroid mass. Respiratory: Normal breathing effort, decreased breath sound in the left lower lobe, no crackles no wheezing or rhonchi. Cardiovascular: Regular rate and rhythm, S1, S2 normal, no murmur no gallop. Gastrointestinal: Normal bowel sounds, nondistended, nontender, No ascites, , No masses, no hepatosplenomegaly. Extremities : No clubbing, No peripheral edema,. Integumentary: No rashes, petechia, suspected lesions. Lymphatics: No axilla or cervical lymphadenopathy. Neurology; alert awake oriented x3, no focal neurologic deficit, normal affection . mood and behavior. Assessment And Plan - Plan This is a 49 years old gentleman, non-smoker but viping with past medical history notable for type 2 diabetes, morbid obesity, or the traumatic fracture of the right femur who presented to emergency room for left pleuritic chest pain and flank pain for 2 days. He was diagnosed with pneumonia in the left lower lobe with parapneumonic effusion by CT of abdomen and chest and admitted on general medical floor. 1. Community-acquired pneumonia complicated by a left parapneumonic effusion, no sepsis lobar pneumonia in the left lower lobe complicated with small left-sided parapneumonic pleural effusion by CT of the chest and abdomen, no sepsis Mild leukocytosis, afebrile,, no risk of multidrug-resistant organism, I will continue Zosyn and add azithromycin, scheduled DuoNeb, antitussive, pain control with ketorolac, [place] as needed, tested negative influenza A&B by rapid antigen test, sputum culture pending Today's follow-up chest x-ray shows increasing size of left pleural effusion, which is expected, no sign of sepsis, no need for drain, supplemental oxygen I will order follow-up CBC, BMP, procalcitonin level tomorrow #2 acute hypoxic respiratory failure secondary to #2 Requiring 2 L nasal cannula 3. Controlled type 2 diabetes Optimized glycemic control , latest hemoglobin A1c per patient 7.2, will continue metformin and Ozempic, moderate dose insulin sliding scale 4. Mild anemia of inflammation/infection Iron study reviewed, no sign of clinical bleeding, #5 mild elevated blood pressure without history of hypertension due to pleuritic chest pain Gradually improving, expected to improve once pain is under control DVT prophylaxis enoxaparin subcu Disposition; plan to discharge home in a couple of days
[2024-09-21] MEDS: AZITHROMYCIN 250 MG TAB PO SCH (11:02)
[2024-09-21] MEDS: PIPER TAZO 4.5 GM in NA CHLORIDE 0.9% 100 ML IV SCH (11:04)
--- NOTE | 2024-09-21 12:27 | RAD REPORT ---
Procedure: Chest Pa And Lat (2 Views) HISTORY: Cough COMPARISON: September 19, 2024 FINDINGS: Progression in the opacification of the mid and lower left hemithorax The right lung appears clear. No significant pleural effusion noted. The heart is normal size. IMPRESSION: Progression in opacification of the mid to lower left hemithorax. This probably represents a combinat ion of pneumonia and pleural effusion.
[2024-09-22 06:12] LABS: Absolute Basophils 0.1 K/uL (0-0.5); Absolute Eosinophils 0.4 K/uL (0-0.5); Absolute Neutrophil 8.6 K/uL (1.8-8.0); Basophils % 0.6 % (0-1.3); Eosinophils % 3.1 % (0-4.4); Hemoglobin 11.6 g/dL (13.6-17.9); Lymphocytes % 16.6 % (15.3-44.8); MCH 29.3 pg (27.0-35.0); MCV 86.1 fL (80-100); MPV 7.4 fL (7.6-11.3); Monocytes % 8.3 % (3.3-12.3); Neutrophils % 71.4 % (41.7-73.7); Nucleated Red Blood Cells % 0.1 % (0-0); Platelets 495 thou/uL (152-406); RBC Red Blood Cell Count 3.95 M/uL (4.33-5.43); Red Cell Distribution Width 13.2 % (12.1-15.2)
[2024-09-22 06:21] LABS: Anion Gap 9.4 mEq/L (5.0-15.0); Potassium 3.4 mEq/L (3.5-5.1)
[2024-09-22] MEDS: POTASSIUM CL SA 10 MEQ TAB PO ONE (08:41)
--- NOTE | 2024-09-22 14:19 | P.PN ---
Subjective Date of Service: 09/22/24 Chief Complaint: Pneumonia and parapneumonic effusion This is a Tele-Medicine visit. Verbal consent was obtained prior to the visit. He was seen on rounds today. He reports that his shortness of breath is unchanged. He denies any chest pain or palpitations. Review of Systems Respiratory: Shortness of Breath Cardiovascular: Unremarkable Physical Examination - Vital Signs Temperature: 98.4 F Blood Pressure: 117/67 Pulse: 102 Respirations: 20 Pulse Ox (%): 92 - Physical Exam General: Alert, In no apparent distress, Oriented x2 HEENT: Atraumatic Respiratory: Other (no respiratory distress) Neurological: Normal speech, Normal affect Other Physical/Emotional Findings: Exam is limited as this is a Tele-Medicine visit. Assessment And Plan - Plan # Sepsis secondary to Community-Acquired Pneumonia with Paraneumonic Effusion - SIRS criteria = tachycardia, leukocytosis - BCx = NGTD - Lactate = 0.8 - Continue piperacillin-tazobactam - Discussed possibility of malignant effusion as well as other types of effusion - Consider Pulmonology consultation - Dr. Raines will be taking over his case tomorrow # Type II Diabetes Mellitus - Correction scale insulin # Hepatic Steatosis # Small Umbilical Hernia - Noted on CT scan - Outpatient follow-up Disposition: He appears clinically stable. Continue IV antibiotics. On site physician (Dr. Raines) will re-assess him tomorrow. Maxi Vasquez M.D.
[2024-09-22] MEDS ORDERED: POLYETHYL GLY 3350 17 GM/DOSE PO PRN (16:37)
[2024-09-22] MEDS: DOCUSATE NA 100 MG CAP PO SCH (21:05)
[2024-09-23 04:32] LABS: Absolute Basophils 0.1 K/uL (0-0.5); Absolute Eosinophils 0.3 K/uL (0-0.5); Absolute Lymphocytes (CBC) 2.6 K/uL (0.7-4.9); Absolute Monocytes 1.2 K/uL (0.1-1.3); Absolute Neutrophil 7.7 K/uL (1.8-8.0); Basophils % 0.5 % (0-1.3); Eosinophils % 2.6 % (0-4.4); Hematocrit 34.4 % (39.6-49.0); Hemoglobin 11.8 g/dL (13.6-17.9); Lymphocytes % 22.1 % (15.3-44.8); MCH 29.4 pg (27.0-35.0); MCHC 34.4 g/dL (32.0-36.0); MCV 85.5 fL (80-100); MPV 7.7 fL (7.6-11.3); Monocytes % 9.8 % (3.3-12.3); Platelets 501 thou/uL (152-406); RBC Red Blood Cell Count 4.03 M/uL (4.33-5.43); Red Cell Distribution Width 13.3 % (12.1-15.2)
[2024-09-23 04:46] LABS: Anion Gap 8.9 mEq/L (5.0-15.0); Potassium 3.9 mEq/L (3.5-5.1)
[2024-09-23] MEDS: POTASSIUM CL SA 10 MEQ TAB PO ONE (08:25)
--- NOTE | 2024-09-23 10:26 | P.PN ---
Subjective Date of Service: 09/23/24 Chief Complaint: Pneumonia and parapneumonic effusion Subjective: Improving (Patient is improving left-sided chest pain has improved this problem started with a sudden onset of fever chills left-sided chest pain patient now has a loculated effusion on the left side) Review of Systems Unremarkable Respiratory: Shortness of Breath Cardiovascular: Chest Pain Physical Examination - Vital Signs Temperature: 98.2 F Blood Pressure: 128/57 Pulse: 108 Respirations: 18 Pulse Ox (%): 95 - Physical Exam General: Alert, Oriented x3 Respiratory: Clear to auscultation bilaterally, Diminished (On the left side) Cardiovascular: No edema, Regular rate/rhythm, Normal S1 S2 Other Physical/Emotional Findings: Exam is limited as this is a Tele-Medicine visit. Assessment And Plan - Current Problems (Diagnosis) (1) Loculated pleural effusion Current Visit: Yes Status: Acute Plan: Patient is 49 years of age admitted with acute community-acquired pneumonia and developed left-sided loculated effusion still has pain although is improved oxygenation off O2 is satisfactory white count is declining with Zosyn ultrasound of the chest possible thoracentesis's chemistries all reviewed DC Lovenox DC breathing treatments does not smoke cigarettes he vapes
--- NOTE | 2024-09-23 13:14 | RAD REPORT ---
EXAM: Chest HISTORY: Left loculated effusion poss thoracentesis COMPARISON: Chest radiograph 09/21/2024 TECHNIQUE: Sonographic grayscale and color flow imaging of the left chest including the region of int erest as described by the patient. FINDINGS: Small loculated appearing left pleural fluid is suspected. Color-flow not placed though to ensure thi s is not a solid process. . IMPRESSION: Suspected small loculated left pleural effusion.
[2024-09-24] MEDS: METOPROLOL TARTRATE 5 MG/5 ML INJ IV ONE (11:11)
--- NOTE | 2024-09-24 12:37 | P.PN ---
Subjective Date of Service: 09/25/24 Chief Complaint: Pneumonia and parapneumonic effusion Subjective: Improving (Patient is improving chest pain has declined feeling better) Review of Systems General: Weakness Respiratory: Shortness of Breath Cardiovascular: Chest Pain Physical Examination - Vital Signs Temperature: 98.2 F Blood Pressure: 140/81 Pulse: 112 Respirations: 18 Pulse Ox (%): 90 - Physical Exam General: Alert, Oriented x3 Respiratory: Diminished (On the left side) Cardiovascular: No edema, Regular rate/rhythm Other Physical/Emotional Findings: Exam is limited as this is a Tele-Medicine visit. - Studies Microbiology Data (last 24 hrs): 09/19/24 11:55 Blood - Blood Aerobic Blood Culture - Final No growth in 5 days. 09/19/24 11:55 Blood - Blood Anaerobic Blood Culture - Final No growth in 5 days. 09/19/24 11:40 Blood - Blood Aerobic Blood Culture - Final No growth in 5 days. 09/19/24 11:40 Blood - Blood Anaerobic Blood Culture - Final No growth in 5 days. Assessment And Plan - Current Problems (Diagnosis) (1) Pneumonia Current Visit: Yes Status: Acute Plan: Patient is 49 years of age admitted with left-sided pneumonia no significant loculations noted patient is clinically improving mildly hypoxic plan to ambulate possible Repeat Ct scan CXRY suggestive of loculated effusion. Tx to T service Qualifiers: Pneumonia type: due to unspecified organism
[2024-09-24 14:13] LABS: Anion Gap 9.1 mEq/L (5.0-15.0); Potassium 4.1 mEq/L (3.5-5.1)
[2024-09-24 14:16] LABS: Absolute Basophils 0.1 K/uL (0-0.5); Absolute Eosinophils 0.3 K/uL (0-0.5); Absolute Lymphocytes (CBC) 1.7 K/uL (0.7-4.9); Absolute Monocytes 1.1 K/uL (0.1-1.3); Absolute Neutrophil 10.8 K/uL (1.8-8.0); Basophils % 0.5 % (0-1.3); Eosinophils % 1.8 % (0-4.4); Hematocrit 35.4 % (39.6-49.0); Hemoglobin 12.1 g/dL (13.6-17.9); Lymphocytes % 12.2 % (15.3-44.8); MCH 29.2 pg (27.0-35.0); MCHC 34.2 g/dL (32.0-36.0); MCV 85.3 fL (80-100); MPV 7.5 fL (7.6-11.3); Neutrophils % 77.5 % (41.7-73.7); Platelets 556 thou/uL (152-406); RBC Red Blood Cell Count 4.14 M/uL (4.33-5.43); Red Cell Distribution Width 13.4 % (12.1-15.2)
[2024-09-24] MEDS: METOPROLOL TAR 25 MG TAB PO SCH (15:29)
[2024-09-24] MEDS: NA CHLORIDE 0.9% 1,000 ML IV SCH (17:21)
[2024-09-25 06:27] LABS: Absolute Basophils 0.1 K/uL (0-0.5); Absolute Eosinophils 0.3 K/uL (0-0.5); Absolute Lymphocytes (CBC) 2.1 K/uL (0.7-4.9); Absolute Monocytes 1.3 K/uL (0.1-1.3); Absolute Neutrophil 11.5 K/uL (1.8-8.0); Basophils % 0.5 % (0-1.3); Eosinophils % 1.9 % (0-4.4); Hematocrit 34.9 % (39.6-49.0); Hemoglobin 11.7 g/dL (13.6-17.9); MCH 28.8 pg (27.0-35.0); MCHC 33.5 g/dL (32.0-36.0); MPV 7.6 fL (7.6-11.3); Monocytes % 8.5 % (3.3-12.3); Neutrophils % 75.1 % (41.7-73.7); Nucleated Red Blood Cells % 0.1 % (0-0); Platelets 626 thou/uL (152-406); RBC Red Blood Cell Count 4.06 M/uL (4.33-5.43); Red Cell Distribution Width 13.6 % (12.1-15.2)
[2024-09-25 06:37] LABS: ALT/SGPT 36 U/L (16-61); AST/SGOT 12 U/L (15-37); Albumin 2.4 g/dL (3.4-5.0); Albumin/Globulin Ratio 0.5 (1.1-1.8); Alkaline Phosphatase 133 U/L (45-117); BUN Blood Urea Nitrogen 8 mg/dL (7-18); Bicarbonate 28 mEq/L (21-32); Bilirubin Total 0.3 mg/dL (0.2-1.0); Globulin 5.2 g/dL (2.3-3.5); Glomerular Filtration Rate 119 ml/min (=/>90); Glucose Level 194 mg/dL (74-106); NT PRO-BNP 20 pg/mL (<125); Phosphorus 2.9 mg/dL (2.5-4.9); Protein, Total 7.6 g/dL (6.4-8.2); Sodium Level 129 mEq/L (136-145)
[2024-09-25 06:39] LABS: Troponin High Sensitivity < 3.0 pg/mL (<58.9)
--- NOTE | 2024-09-25 08:32 | RAD REPORT ---
EXAM: CT Thorax W/ Con CLINICAL INDICATION: Male, 49 years old. [facility] MAIN pneumonia/effusions N TECHNIQUE: Routine CT scan of the chest with intravenous contrast. One or more of the following dose reduction techniques were used: Automated exposure control, adjustment of the mA and/or kV according to patient size, and/or iterative reconstruction. Unless otherwise specified, incidental fi ndings do not require dedicated imaging follow-up. COMPARISON: No prior exam. FINDINGS: LUNGS: Airways are clear. Airspace opacification with volume loss involving most of the left lower lo be, and posterior/basal left upper lobe segments. Right lung is clear apart from right basilar subsegmental atelectasis. No nodules. PLEURA: Moderate to large left-sided pleural effusion, with bulging contours along the peripheral lef t upper hemithorax and some extension along the major fissure. Configuration may suggest loculation. No effusion on the right. No pneumothorax. MEDIASTINUM AND LYMPH NODES: No mediastinal mass or fluid collection. No suspicious axillary or hilar adenopathy. Prominent mediastinal nodes largest in the precarinal space with short axis AP dimension 1.3 cm. Retroesophageal lymph node measuring 1.2 cm in short axis. AP window lymph node tova suring 1 cm in short axis. These are essentially stable allowing for differences in technique. OSSEOUS STRUCTURES AND CHEST WALL: Intact. UPPER ABDOMEN: No significant abnormalities. IMPRESSION: Progressive moderate to large left-sided pleural effusion with configuration suggesting loculation. U nderlying atelectasis. Prominent mediastinal lymph nodes as above, probably stable allowing for differences in technique, th [place] could be reactive/inflammatory.
[2024-09-25] MEDS: VANCOMYCIN 2 GM in NA CHLORIDE 0.9% 500 ML IVPB SCH (11:55)
--- NOTE | 2024-09-25 12:36 | EKG ---
Test Date: 2024-09-20 Test Time: 04:16:18 Shield Cleaner: MCGA MEASUREMENT RESULTS: Intervals: Rate: 123 SC: 150 QRSD: 94 QT: 320 QTc: 458 [place]: P: 24 SC: 150 QRS: -32 T: 39 INTERPRETIVE STATEMENTS: Sinus tachycardia Left axis deviation Incomplete right bundle branch block Inferior infarct, age undetermined Abnormal ECG Compared to ECG 09/19/2024 12:37:43 Left-axis deviation now present Incomplete right bundle-branch block now present Myocardial infarct finding now present ST (T wave) deviation no longer present Electronically Signed On 09-25-24 12:22:59 COMPUTING CONSULTANT by Serge Mas
--- NOTE | 2024-09-25 12:40 | EKG ---
Test Date: 2024-09-19 Test Time: 12:37:43 Glue Plant Operator: ALEXEY MEASUREMENT RESULTS: Intervals: Rate: 116 [place]: 138 QRSD: 102 QT: 330 QTc: 458 [place]: P: 55 [place]: 138 QRS: 54 T: 88 INTERPRETIVE STATEMENTS: Sinus tachycardia Nonspecific ST and T wave abnormality Abnormal ECG Compared to ECG 10/17/2023 20:30:48 ST (T wave) deviation now present Incomplete right bundle-branch block no longer present Electronically Signed On 09-25-24 12:24:06 SQL DATA ARCHITECT by Serge Mas
[2024-09-25 14:38] VITALS: BMI 37.3
[2024-09-25] MEDS ORDERED: HYDROMORPHONE HCL 0.5 MG/0.5 ML INJ IV PRN (23:54)
[2024-09-26] MEDS: HYDROCODONE/APAP 7.5/325 MG TAB PO PRN (00:03)
--- NOTE | 2024-09-26 02:30 | P.PN ---
Subjective Date of Service: 09/24/24 patient is doing well with no new complaints. However patient had a questionable loculated effusion. He does have some pain on deep inspiration. However imaging study did not reveal a malignancy. Will going to go ahead and plan to reimage in a.m.. Review of Systems 10-point ROS is otherwise unremarkable Physical Examination - Vital Signs Temperature: 97.8 F Blood Pressure: 141/83 Pulse: 102 Respirations: 18 Pulse Ox (%): 90 - Physical Exam General: Alert, In no apparent distress, Oriented x3 Respiratory: Diminished ( Diminished breath sounds over right lung) Cardiovascular: Regular rate/rhythm, Normal S1 S2, No murmurs Gastrointestinal: Normal bowel sounds, Soft and benign, Non-distended, No tenderness Musculoskeletal: No clubbing, No swelling, No tenderness Integumentary: No rashes Neurological: Sensation intact, Cranial nerves 3-12 intact Other Physical/Emotional Findings: Exam is limited as this is a Tele-Medicine visit. - Studies Medications List Reviewed: Yes Assessment & Plan - Problems (Diagnosis) (1) Loculated pleural effusion Current Visit: Yes Status: Acute (2) Pneumonia Current Visit: Yes Status: Acute Qualifiers: Pneumonia type: due to unspecified organism (3) Hypertension Current Visit: Yes Status: Acute (4) Dyslipidemia Current Visit: Yes Status: Acute - Plan 1. Continue with IV antibiotics 2. Awaiting sputum and blood culture 3. Repeat CT scan of the chest 4. Continue with nebs as needed 5. O2 per protocol 6. GI and DVT prophylaxis Discharge Plan: Home Plan to discharge in: Greater than 2 days - Advance Directives Does patient have a Living Will: No Does patient have a Durable POA for Healthcare: No - Code Status/Comfort Care Code Status Assessed: Yes Code Status: Full Code Critical Care: No Time Spent Managing PTS Care (In Minutes): 35
--- NOTE | 2024-09-26 02:32 | P.PN ---
Date of Service: 09/25/24 Subjective Patient continues to do well. CT imaging is pending. Physical Examination - Vital Signs Reviewed - Physical Exam General: Alert, In no apparent distress, Oriented x3 Respiratory: Diminished ( Diminished breath sounds over right lung) Cardiovascular: Regular rate/rhythm, Normal S1 S2, No murmurs Gastrointestinal: Normal bowel sounds, Soft and benign, Non-distended, No tenderness Musculoskeletal: No clubbing, No swelling, No tenderness Integumentary: No rashes Neurological: Sensation intact, Cranial nerves 3-12 intact Assessment & Plan - Problems (Diagnosis) (1) Loculated pleural effusion Current Visit: Yes Status: Acute (2) Pneumonia Current Visit: Yes Status: Acute Qualifiers: Pneumonia type: due to unspecified organism (3) Hypertension Current Visit: Yes Status: Acute (4) Dyslipidemia Current Visit: Yes Status: Acute - Plan Continue with plan of care as mentioned below: 1. Continue with IV antibiotics 2. Awaiting Culture results; will get pleural fluid and try to get it sent for labs hip were able to get a diagnostic thoracentesis completed. 3. Repeat CT scan of the chest is pending 4. Continue with nebs as needed 5. O2 per protocol 6. GI and DVT prophylaxis Discharge Plan: Home Plan to discharge in: Greater than 2 days - Advance Directives Does patient have a Living Will: No Does patient have a Durable POA for Healthcare: No - Code Status/Comfort Care Code Status Assessed: Yes Code Status: Full Code Critical Care: No Time Spent Managing PTS Care (In Minutes): 30
[2024-09-26 08:37] LABS: Hematocrit 34.6 % (39.6-49.0); Hemoglobin 11.5 g/dL (13.6-17.9); MCH 28.9 pg (27.0-35.0); MCHC 33.3 g/dL (32.0-36.0); MCV 86.7 fL (80-100); MPV 7.2 fL (7.6-11.3); Platelets 599 thou/uL (152-406); RBC Red Blood Cell Count 3.99 M/uL (4.33-5.43); Red Cell Distribution Width 13.5 % (12.1-15.2)
[2024-09-26 08:44] LABS: PT Prothrombin Time 15.3 SECONDS (9.4-12.5); PTT, Activated Partial Thromb 32.1 SECONDS (24.3-36.9); Protime INR 1.46
--- NOTE | 2024-09-26 09:18 | RAD REPORT ---
EXAMINATION: Chest CLINICAL INDICATION: thoracentesis COMPARISON: None. TECHNIQUE: Sonographic grayscale and color flow imaging of the chest. FINDINGS: Patient was referred for thoracentesis procedure on the left. Real-time sonography performed by radio logist preprocedure planning was performed. A suitable window could not be visualized to perform the procedure safely at this time. There was significant loculation of the pleural fluid seen.
--- NOTE | 2024-09-26 12:52 | P.PN ---
Subjective Date of Service: 09/26/24 Chief Complaint: Pneumonia and parapneumonic effusion Subjective: Improving (Patient is improving although still complains of pain pleuritic chest pain on the left side has to take pain medications) Review of Systems General: Weakness Respiratory: Shortness of Breath Cardiovascular: Chest Pain Physical Examination - Vital Signs Temperature: 98.6 F Blood Pressure: 133/71 Pulse: 109 Respirations: 18 Pulse Ox (%): 93 - Physical Exam General: Alert, Oriented x3 Respiratory: Diminished Cardiovascular: Normal pulses, Normal S1 S2 Other Physical/Emotional Findings: Exam is limited as this is a Tele-Medicine visit. - Studies Medications List Reviewed: Yes Assessment And Plan - Current Problems (Diagnosis) (1) Pneumonia Current Visit: Yes Status: Acute Plan: Patient is 49 years of age admitted with pneumonia and left-sided loculated pleural effusion radiologist unable to do a thoracentesis white count is now dec lined continue with vancomycin and Zosyn patient needs to be transferred to a thoracic surgery service signs oxygenation satisfactory Qualifiers: Pneumonia type: due to unspecified organism Laterality: left
[2024-09-26] MEDS: Oxycodone HCl/Acetaminophen 5/325 MG TAB PO PRN (13:09)
--- NOTE | 2024-09-26 13:29 | ECHO ---
HEIGHT: 5 ft 7 in WEIGHT: 238 lb 12.8 oz DATE OF STUDY: 09/25/[address]: Alida Rucker MD 2-DIMENSIONAL: YES M.MODE: YES DOPPLER: YES COLOR FLOW: YES TDS: YES PORTABLE: YES DEFINITY: BUBBLE STUDY: DIAGNOSIS: CONGESTIVE HEART FAILURE CARDIAC HISTORY: CATHERIZATION: NO SURGERY: NO PROSTHETIC VALVE: NO PACEMAKER: NO MEASUREMENTS (cm) DIASTOLIC (NORMALS) SYSTOLIC (NORMALS) IVSd 1.3 (0.6-1.2) LA Diam 2.9 (1.9-4.0) LVEF 62% LVIDd 4.8 (3.5-5.7) LVIDs 1.9 (2.0-3.5) %FS 32% LVPWd 1.3 (0.6-1.2) Ao Diam 3.4 (2.0-3.7) 2 DIMENSIONAL ASSESSMENT: RIGHT ATRIUM: NORMAL LEFT ATRIUM: NORMAL RIGHT VENTRICLE: NORMAL LEFT VENTRICLE: NORMAL TRICUSPID VALVE: TRACE TRICUSPID REGURGITATION MITRAL VALVE: NORMAL PULMONIC VALVE: AORTIC VALVE: NORMAL PERICARDIAL EFFUSION: NONE AORTIC ROOT: NORMAL LEFT VENTRICULAR WALL MOTION: NORMAL DOPPLER/COLOR FLOW: NORMAL COMMENTS: 1. NORMAL LEFT VENTRICULAR SYSTOLIC FUNCTION, EJECTION FRACTION 60-65%, NORMAL WALL MOTION 2. NORMAL DIASTOLIC FUNCTION 3. NORMAL FILLING PRESSURE TECHNOLOGIST: NATHAN SHERWOOD
--- NOTE | 2024-09-27 03:35 | P.PN ---
Date of Service: 09/26/24 Subjective PATIENT IS CLINICALLY DOING WELL. PATIENT DENIES ANY NEW COMPLAINTS. PATIENT IS WAITING FOR TRANSFER. THORACENTESIS WAS ATTEMPTED BUT UNSUCCESSFUL. Physical Examination - Vital Signs Reviewed - Physical Exam General: Alert, In no apparent distress, Oriented x3 Respiratory: Diminished (Diminished breath sounds over right lung) Cardiovascular: Regular rate/rhythm, Normal S1 S2, No murmurs Gastrointestinal: Normal bowel sounds, Soft and benign, Non-distended, No tenderness Musculoskeletal: No clubbing, No swelling, No tenderness Neurological: No focal deficits Assessment & Plan - Problems (Diagnosis) (1) Loculated pleural effusion Current Visit: Yes Status: Acute (2) Pneumonia Current Visit: Yes Status: Acute Pneumonia type: due to unspecified organism (3) Hypertension Current Visit: Yes Status: Acute (4) Dyslipidemia Current Visit: Yes Status: Acute - Plan Continue with plan of care as mentioned below: 1. Continue with IV antibiotics 2. Awaiting sputum and blood culture 3. Repeat CT scan of the chest showed worsening loculated pleural effusion; patient had an attempted thoracentesis. Unable to get any fluid. Awaiting for transfer for VATS procedure. 4. Continue with nebs as needed 5. O2 per protocol 6. GI and DVT prophylaxis Discharge Plan: Home Plan to discharge in: Greater than 2 days - Advance Directives Does patient have a Living Will: No Does patient have a Durable POA for Healthcare: No - Code Status/Comfort Care Code Status Assessed: Yes Code Status: Full Code Critical Care: No Time Spent Managing PTS Care (In Minutes): 25
[2024-09-27 10:47] LABS: Absolute Basophils 0.2 K/uL (0-0.5); Absolute Eosinophils 0.3 K/uL (0-0.5); Absolute Lymphocytes (CBC) 1.9 K/uL (0.7-4.9); Absolute Monocytes 0.7 K/uL (0.1-1.3); Absolute Neutrophil 10.8 K/uL (1.8-8.0); Basophils % 1.2 % (0-1.3); Eosinophils % 1.8 % (0-4.4); Hematocrit 34.3 % (39.6-49.0); Hemoglobin 11.5 g/dL (13.6-17.9); MCH 28.9 pg (27.0-35.0); MCHC 33.4 g/dL (32.0-36.0); MCV 86.4 fL (80-100); Monocytes % 5.3 % (3.3-12.3); Neutrophils % 77.7 % (41.7-73.7); Platelets 650 thou/uL (152-406); RBC Red Blood Cell Count 3.97 M/uL (4.33-5.43); Red Cell Distribution Width 13.3 % (12.1-15.2)
[2024-09-27 11:11] LABS: Albumin 2.3 g/dL (3.4-5.0); Albumin/Globulin Ratio 0.4 (1.1-1.8); Anion Gap 9.1 mEq/L (5.0-15.0); Bilirubin Total 0.4 mg/dL (0.2-1.0); Globulin 5.2 g/dL (2.3-3.5); Potassium 4.1 mEq/L (3.5-5.1); Protein, Total 7.5 g/dL (6.4-8.2)
[2024-09-28] MEDS: VANCOMYCIN 1.5 GM in NA CHLORIDE 0.9% 500 ML IVPB SCH (18:04)
[2024-09-29 08:41] LABS: Hematocrit 34.1 % (39.6-49.0); Hemoglobin 11.3 g/dL (13.6-17.9); MCH 28.6 pg (27.0-35.0); MCHC 33.2 g/dL (32.0-36.0); MCV 86.1 fL (80-100); MPV 6.9 fL (7.6-11.3); Platelets 705 thou/uL (152-406); RBC Red Blood Cell Count 3.97 M/uL (4.33-5.43); Red Cell Distribution Width 13.6 % (12.1-15.2)
[2024-09-29 08:55] LABS: Anion Gap 6.8 mEq/L (5.0-15.0); Potassium 3.8 mEq/L (3.5-5.1)
[2024-09-29] MEDS: POTASSIUM CL SA 10 MEQ TAB PO ONE (14:38)
--- NOTE | 2024-09-30 11:49 | RAD REPORT ---
EXAMINATION: ONE VIEW CHEST XR CLINICAL INDICATION: Pleural effusion TECHNIQUE: Frontal chest projection is submitted. Examination is limited by patient positioning and t echnique. COMPARISON: 09/21/2024 FINDINGS: There is moderate size loculated pleural collection seen on the left. Small amount of pleural fluid l ikely inferiorly present as well. Patchy opacity in the medial left lung base partially obscured. The right lung appears grossly clear. The heart is upper limit of normal in size. No displaced fractu res identified. IMPRESSION: Moderate-sized loculated left pleural effusion along the left chest wall.
--- NOTE | 2024-09-30 12:00 | RAD REPORT ---
EXAM: CT CHEST WITH CONTRAST CLINICAL INDICATION: pleural effusion with pneumonia TECHNIQUE: Routine CT scan of the chest with intravenous contrast. One or more of the following dose reduction techniques were used: Automated exposure control, adjustment of the mA and/or kV according to patient size, and/or iterative reconstruction. Unless otherwise specified, incidental fi ndings do not require dedicated imaging follow-up. COMPARISON: 09/25/2024 FINDINGS: LUNGS: Tiny indeterminate nodular densities are seen in the right lower lung largest medial right low er lobe measuring 8 mm. Chronic atelectasis is seen in the left lung base. PLEURA: Loculated left pleural effusion is seen left chest wall moderate in size measuring 7 cm in ma ximum thickness. MEDIASTINUM AND LYMPH NODES: No mediastinal mass or fluid collection. Normal size mediastinal, hilar, and axillary lymph nodes. OSSEOUS STRUCTURES AND CHEST WALL: Intact. UPPER ABDOMEN: No significant abnormalities. IMPRESSION: Moderate size loculated left pleural effusion along the left thoracic cage measuring 7 cm in maximum thickness. Chronic atelectasis or infiltrate medial left lung base. Small indeterminate areas of nodularity seen right lung base. Follow-up CT chest in 3-6 months would be recommended for surveillance.
--- NOTE | 2024-09-30 12:43 | P.PN ---
Date of Service: 09/27/[address] imaging was reviewed; patient with loculated pleural effusion. Consult interventional radiology but unable to do thoracentesis. Physical Examination - Vital Signs Reviewed - Physical Exam General: Alert, In no apparent distress, Oriented x3 Respiratory: Diminished (Diminished breath sounds over left lungs Cardiovascular: Regular rate/rhythm, Normal S1 S2, No murmurs Gastrointestinal: Normal bowel sounds, Soft and benign, Non-distended, No tenderness Musculoskeletal: No clubbing, No swelling, No tenderness Integumentary: No rashes Neurological: no focal deficits Assessment & Plan - Problems (Diagnosis) (1) Loculated pleural effusion Current Visit: Yes Status: Acute (2) Pneumonia Current Visit: Yes Status: Acute Qualifiers: Pneumonia type: due to unspecified organism (3) Hypertension Current Visit: Yes Status: Acute (4) Dyslipidemia Current Visit: Yes Status: Acute - Plan Continue with plan of care as mentioned below: 1. Continue with IV antibiotics 2. Awaiting culture results; unable to get thoracentesis. 3. CT of the chest showed left-sided loculated pleural effusion 4. Continue with nebs as needed 5. O2 per protocol 6. Continue with strict blood pressure and blood sugar control 7. GI and DVT prophylaxis Discharge Plan: Transfer to [facility] Plan to discharge in: Greater than 2 days - Advance Directives Does patient have a Living Will: No Does patient have a Durable POA for Healthcare: No - Code Status/Comfort Care Code Status Assessed: Yes Code Status: Full Code Critical Care: No Time Spent Managing PTS Care (In Minutes): 30
--- NOTE | 2024-09-30 12:44 | P.PN ---
Date of Service: 09/28/24 Subjective No new changes. Successful with transferring to [facility]. Try to get [facility] transfer initiated. Clinically stable. Physical Examination - Vital Signs Reviewed - Physical Exam General: Alert, In no apparent distress, Oriented x3 Respiratory: Diminished (Diminished breath sounds over left lungs Cardiovascular: Regular rate/rhythm, Normal S1 S2, No murmurs Gastrointestinal: Normal bowel sounds, Soft and benign, Non-distended, No tenderness Musculoskeletal: No clubbing, No swelling, No tenderness Integumentary: No rashes Neurological: no focal deficits Assessment & Plan - Problems (Diagnosis) (1) Loculated left pleural effusion Current Visit: Yes Status: Acute (2) Pneumonia Current Visit: Yes Status: Acute Qualifiers: Pneumonia type: due to unspecified organism (3) Hypertension Current Visit: Yes Status: Acute (4) Dyslipidemia Current Visit: Yes Status: Acute - Plan Continue with plan of care as mentioned below: 1. Continue with IV antibiotics 2. Awaiting culture results; unable to get thoracentesis. 3. CT of the chest showed left-sided loculated pleural effusion 4. Continue with nebs as needed 5. O2 per protocol 6. Continue with strict blood pressure and blood sugar control 7. GI and DVT prophylaxis Discharge Plan: Transfer to [facility] Plan to discharge in: Greater than 2 days - Advance Directives Does patient have a Living Will: No Does patient have a Durable POA for Healthcare: No - Code Status/Comfort Care Code Status Assessed: Yes Code Status: Full Code Critical Care: No Time Spent Managing PTS Care (In Minutes): 30
--- NOTE | 2024-09-30 12:47 | P.PN ---
Date of Service: 09/29/24 Subjective Patient with no new changes. Clinically doing well. Oxygenation is stable. Awaiting transfer. CT scan pending. Physical Examination - Vital Signs Reviewed - Physical Exam General: Alert, In no apparent distress, Oriented x3 Respiratory: Diminished (Diminished breath sounds over left lungs) Cardiovascular: Regular rate/rhythm, Normal S1 S2, No murmurs Gastrointestinal: Normal bowel sounds, Soft and benign, Non-distended, No tenderness Musculoskeletal: No clubbing, No swelling, No tenderness Integumentary: No rashes Neurological: no focal deficits Assessment & Plan - Problems (Diagnosis) (1) Loculated left pleural effusion Current Visit: Yes Status: Acute (2) Pneumonia Current Visit: Yes Status: Acute Qualifiers: Pneumonia type: due to unspecified organism (3) Hypertension Current Visit: Yes Status: Acute (4) Dyslipidemia Current Visit: Yes Status: Acute - Plan Continue with plan of care as mentioned below: 1. Continue with IV antibiotics; patient on Zosyn and vancomycin. Continue with nebs as needed 2. Awaiting culture results; unable to get thoracentesis. Will need to transfer for possible VATS procedure. Thoracic surgery to be consulted. 3. CT of the chest showed left-sided loculated pleural effusion; will repeat to make sure there is no worsening 4. Continue with nebs as needed 5. O2 per protocol 6. Continue with strict blood pressure and blood sugar control 7. GI and DVT prophylaxis Discharge Plan: Transfer to [facility] Plan to discharge: Once accepted - Advance Directives Does patient have a Living Will: No Does patient have a Durable POA for Healthcare: No - Code Status/Comfort Care Code Status Assessed: Yes Code Status: Full Code Critical Care: No Time Spent Managing PTS Care (In Minutes): 25
--- NOTE | 2024-09-30 12:49 | P.DS ---
Discharge Date: 09/30/24 Disposition: TRANSFER TO [facility] Discharge Condition: GOOD Reason for Admission: Pneumonia and parapneumonic effusion - Problems (1) Loculated pleural effusion Current Visit: Yes Status: Acute (2) Pneumonia Current Visit: Yes Status: Acute Qualifiers: Pneumonia type: due to unspecified organism Laterality: left (3) Hypertension Current Visit: Yes Status: Acute (4) Dyslipidemia Current Visit: Yes Status: Acute Brief History of Present Illness: This is 49 years old gentleman with a past medical history notable for type 2 diabetes on Ozempic and metformin, morbid obesity, traumatic right femur fracture status post metallic leny who presented to emergency room for evaluation of left flank pain for 2 days, severe in intensity, constant, aggravated by deep inspiration and movement, no medication tried at home, not associated with fever or chill or productive cough or shortness of breath or urinary symptom. His vital sign is stable, afebrile, oxygen saturation is 96% on room air upon arrival emergency room, CT of the chest and abdomen demonstrated consolidation of the left lower lobe with small left-sided pleural effusion and 2 cm sized low-density within the consolidation and being admitted on medical floor. Patient denied cigarette smoking but admitted to [facility], he has been diabetic for the past 10 years, no serious infection or complication such as stroke or heart attack. His greatest hemoglobin A1c is 7.2 on Ozempic and metformin, his last dose of Ozempic was 2 days ago. Hospital Course: Patient had a loculated left-sided pleural effusion; awaiting for transfer to [facility]. Patient will need CT surgery evaluation for VATS procedure. Continue with antibiotic therapy. Continue with Zosyn and vancomycin. O2 per protocol. Continue with supportive care at this time while we await transfer. Vital Signs/Physical Exam: Temp Pulse Resp BP Pulse Ox 98.0 F 110 H 18 132/88 94 09/30/24 04:00 09/30/24 09:20 09/30/24 09:36 09/30/24 09:20 09/30/24 09:36 General: Alert, In no apparent distress, Oriented x3 Other Physical/Emotional Findings: Exam is limited as this is a Tele-Medicine visit. Laboratory Data at Discharge: WBC 11.70 thou/uL (4.3-10.9) H 09/29/24 08:22 Hgb 11.3 g/dL (13.6-17.9) L 09/29/24 08:22 Hct 34.1 % (39.6-49.0) L 09/29/24 08:22 Plt Count 705 thou/uL (152-406) H 09/29/24 08:22 PT 15.3 SECONDS (9.4-12.5) H 09/26/24 08:24 INR 1.46 09/26/24 08:24 APTT 32.1 SECONDS (24.3-36.9) 09/26/24 08:24 Sodium 134 mEq/L (136-145) L 09/29/24 08:22 Potassium 3.8 mEq/L (3.5-5.1) 09/29/24 08:22 BUN 11 mg/dL (7-18) 09/29/24 08:22 Creatinine 0.58 mg/dL (0.70-1.30) L 09/29/24 08:22 Glucose 138 mg/dL (74-106) H 09/29/24 08:22 Phosphorus Cancelled 09/25/24 06:00 Magnesium 2.0 mg/dL (1.6-2.4) 09/27/24 10:36 Total Bilirubin 0.4 mg/dL (0.2-1.0) 09/27/24 10:36 AST 12 U/L (15-37) L 09/27/24 10:36 ALT 38 U/L (16-61) 09/27/24 10:36 Alkaline Phosphatase 146 U/L (45-117) H 09/27/24 10:36 Lipase 40 U/L (13-75) 09/19/24 10:23 Home Medications: Atorvastatin Calcium 40 mg PO DAILY 09/19/24 Metformin HCl 1,000 mg PO BID 09/19/24 Semaglutide [Ozempic] 1 mg SQ SEECOM 09/19/24 Acetaminophen [Tylenol*] 650 mg PO Q4HP PRN tab 09/30/24 Benzonatate [Tessalon Perle*] 200 mg PO TID PRN cap 09/30/24 Docusate [Colace Cap*] 100 mg PO BID cap 09/30/24 Metoprolol Tartrate [Lopressor*] 25 mg PO TID tab 02/09/25 Nicotine [Nicoderm*] 21 mg TD DAILY 09/30/24 Polyethyl Gly 3350 [Glycolax*] 17 gm PO DAILY PRN udbot 09/30/24 Physician Discharge Instructions: Patient was on Zosyn 4.5 g IV piggyback every 8 hours and vancomycin 1.5 g every 12 hours. Patient will be n.p.o. after midnight -Transfer to [facility] -Please call Dr. Rucker at [phone] if any questions regarding hospital stay at [facility] -Please call nursing station at [phone] if any nursing or medication questions Diet: AHA Activity: Fall precautions Followup: Negra Hewitt MD [Primary Care Provider] - Time spent managing pt's care (in minutes): 35
[2024-09-30 13:11] VITALS: BP 135/84; TEMP 97.5
[2024-09-30 14:08] VITALS: O2SAT 93
== END 2024-09-30 14:25 | disposition short-term general hospital (02) | DRG 871 ==
LOC: ER 09:14 → ERHOLD 12:32 → 4TH 16:13
PROVIDERS: ADMIT Internal Medicine; ATTEND Hospitalist
DX: A41.9 Sepsis, unspecified organism (principal); J85.1 Abscess of lung with pneumonia; J96.01 Acute respiratory failure with hypoxia; Z68.42 Body mass index [BMI] 45.0-49.9, adult; J91.8 Pleural effusion in other conditions classified elsewhere; E66.01 Morbid (severe) obesity due to excess calories; I10 Essential (primary) hypertension; D64.9 Anemia, unspecified; E78.5 Hyperlipidemia, unspecified; E11.9 Type 2 diabetes mellitus without complications; E78.00 Pure hypercholesterolemia, unspecified; K76.0 Fatty (change of) liver, not elsewhere classified; K42.9 Umbilical hernia without obstruction or gangrene; Z88.6 Allergy status to analgesic agent; Z79.84 Long term (current) use of oral hypoglycemic drugs; Z79.85 Long-term (current) use of injectable non-insulin antidiabetic drugs
CPT/HCPCS: 36415; 71045; 71046; 71260; 71275; 74176; 76377; 76604; 80048; 80053; 80202; 81015; 82728; 82947; 83540; 83605; 83690; 83735; 83880; 84100; 84145; 84466; 84484; 85025; 85027; 85044; 85610; 85730; 87040; 87804; 93005; 93306; 99285; J1171; J1650; J2543; J7030; J7040; J7613; J7644; Q9967